=== PATIENT | female | born 1960 | race Caucasian/White ===

== ENCOUNTER 2017-05-27 22:42 | Observation (INO) | payer MEDICARE, OTHER ==
[~2017-05-27] VITALS: Ht 167.6 cm; Wt 73.2 kg
[~2017-05-27 22:42] MED LIST: ASP81CT; ATRV10T; CPR500T; ESCT10T; HCT25T; LVT.088T; LVT.1T; MTR500T; PRM25T PO; SULF1TAB38; TRZ100T
[2017-05-27] MEDS ORDERED: BUTA1TAB9 PO (23:12)
[2017-05-27] MEDS ORDERED: CLON0.5T3 PO (23:12)
[2017-05-27] MEDS ORDERED: OMEP40CA36 PO (23:12)
[2017-05-27] MEDS ORDERED: TOPI50TA13 PO (23:12)
[2017-05-27] MEDS ORDERED: LEVO100T7 PO (23:12)
[2017-05-27] MEDS ORDERED: LORA10TA7 PO (23:12)
[2017-05-27] MEDS ORDERED: CARV25TA PO (23:12)
[2017-05-27] MEDS ORDERED: CLOP75TA28 PO (23:12)
[2017-05-27] MEDS ORDERED: FLUT16SP22 NSEACH (23:12)
[2017-05-27] MEDS ORDERED: VENL150C98 PO (23:12)
[2017-05-27] MEDS ORDERED: MIRT45TA5 PO (23:12)
[2017-05-28] VITALS (20 sets, daily range): BP systolic 83–162; BP diastolic 52–104
[2017-05-28] MEDS ORDERED: ASPIRIN 81 MG CHEW (CHILDREN'S ASA) PO ONE
[2017-05-28] MEDS ORDERED: ANTACID SUSP 30 ML UDC (MYLANTA) PO ONE
[2017-05-28] MEDS ORDERED: FAMOTIDINE 20MG/2ML IV (PEPCID) IV STA
[2017-05-28] MEDS ORDERED: LIDOCAINE 2% VISCOUS 15 ML UDC PO ONE
--- NOTE | 2017-05-28 00:04 | ED Chest Pain ---
General Chief Complaint: Upper Extremity Stated Complaint: L SHOULDER/ARM/JAW PAIN Nursing Triage Note: pt reports left arm pain radiating to left shoulder/neck since 10am 05/27/17 denies injury Nursing Sepsis Screen: No Definite Risk Source: patient Exam Limitations: no limitations History of Present Illness Date Seen by Provider: May 27, 2017 Time Seen by Provider: 23:54 Initial Comments Patient presents to ER by private conveyance with a chief complaint she started feeling some burning in the middle of her chest associated with acid reflux as well as left shoulder pain about 10:00 this morning. She associates this left shoulder pain with her previous small heart attack she had a few years ago. Her last heart catheter was 4 years ago. 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 She is down here helping with some family and under a lot of stress. She debated whether she should be seen but then she started having nausea vomiting which is unusual for her. She had vomitus times one with no blood in it. She does not have anything for nausea at home. She does not take nitroglycerin because it makes her very ill she says. She does take aspirin, Coreg, Plavix, atorvastatin 80 mg. She has a history of femoropopliteal bypass on the right and multiple stents in both legs. She has no stents in her coronaries. She smokes a pack per day and is on levothyroxine. She has hypertension and hypercholesterolemia. Allergies and Home Medications Allergies Coded Allergies: morphine (Unverified Allergy, Mild, VISUAL DISTURB, 10/06/08) tetracaine (Unverified Allergy, Mild, RASH, 10/09/08) tetracycline (Verified Allergy, Mild, HIVES, 10/26/06) nitroglycerin (Verified Allergy, Unknown, NAUSEA, 05/27/17) meperidine (Verified Adverse Reaction, Unknown, NAUSEA AND VOMITING, ) Patient Home Medication List Home Medication List Reviewed: Yes Review of Systems Constitutional: No chills, No diaphoresis EENTM: No Blurred Vision, No Double Vision Respiratory: Denies Cough Cardiovascular: See HPI, Chest Pain, Denies Edema, Denies Irregular Heart Rate , Denies Lightheadedness, Denies Palpitations, Denies Syncope Gastrointestinal: See HPI, Denies Abdominal Pain, Denies Constipated, Denies Diarrhea, Nausea, Vomiting Genitourinary: Denies Burning, Denies Discharge Musculoskeletal: No back pain, No joint pain Skin: No pruritus, No rash Psychiatric/Neurological: Denies Headache, Denies Numbness, Denies Paresthesia Past Ewczivc-[id number]-[id number] Hx Patient Social History Alcohol Use: Denies Use Recreational Drug Use: No Smoking Status: Current Everyday Smoker Type Used: Cigarettes 2nd Hand Smoke Exposure: Yes Recent Foreign Travel: No Contact w/Someone Who Travel: No Recent Infectious Disease Expo: No Recent Hopitalizations: No Seasonal Allergies Seasonal Allergies: Yes Surgeries History of Surgeries: Yes (APPY,HYST,PARTIAL HYSTERECTOMY, fem-pop, leg stents) Surgeries: Appendectomy, Bowel Surgery, Gallbladder, Hysterectomy Respiratory History of Respiratory Disorde: Yes Respiratory Disorders: Asthma Cardiovascular History of Cardiac Disorders: No Neurological History of Neurological Disord: Yes Neurological Disorders: Headaches /Migraines Reproductive System : No Hx 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 Genitourinary History of Genitourinary Disor: No Gastrointestinal History of Gastrointestinal Di: Yes Gastrointestinal Disorders: Gastroesophageal Reflux Musculoskeletal History of Musculoskeletal Dis: Yes Musculoskeletal Disorders: Arthritis Endocrine History of Endocrine Disorders: Yes Endocrine Disorders: Hypothyroidsim HEENT History of HEENT Disorders: No Cancer History of Cancer: No Psychosocial History of Psychiatric Problem: Yes Behavioral Health Disorders: Anxiety, Depression Integumentary History of Skin or Integumenta: No Blood Transfusions History of Blood Disorders: No Physical Exam Vital Signs Vital Signs - First Documented 05/27/17 23:05 Temp 97.8 Pulse 86 Resp 16 B/P (MAP) 135/83 (100) Pulse Ox 98 O2 Delivery Room Air Capillary Refill : Less Than 3 Seconds General Appearance: No Apparent Distress, WD/WN HEENT: PERRL/EOMI, Pharynx Normal Neck: Non Tender, Supple Respiratory: Chest Non Tender, Lungs Clear, Normal Breath Sounds, No Accessory Muscle Use, No Respiratory Distress Cardiovascular: Regular Rate, Rhythm, No Edema, Normal Peripheral Pulses Gastrointestinal: Normal Bowel Sounds, Non Tender, Soft Neurologic/Psychiatric: Alert, Oriented x3 Skin: Normal Color, Warm/Dry Progress/Results/Core Measures Results/Orders Lab Results Laboratory Tests Test 05/28/17 00:25 Range/Units White Blood Count 8.9 4.3-11.0 10^3/uL Red Blood Count 3.97 L 4.35-5.85 10^6/uL Hemoglobin 13.3 11.5-16.0 G/DL Hematocrit 39 35-52 % Mean Corpuscular Volume 98 80-99 FL Mean Corpuscular Hemoglobin 34 25-34 PG Mean Corpuscular Hemoglobin Concent 34 32-36 G/DL Red Cell Distribution Width 13.5 10.0-14.5 % Platelet Count 185 130-400 10^3/uL Mean Platelet Volume 11.5 H 7.4-10.4 FL Neutrophils (%) (Auto) 45 42-75 % Lymphocytes (%) (Auto) 44 12-44 % Monocytes (%) (Auto) 7 0-12 % Eosinophils (%) (Auto) 3 0-10 % Basophils (%) (Auto) 1 0-10 % Neutrophils # (Auto) 4.0 1.8-7.8 X 10^3 Lymphocytes # (Auto) 3.9 1.0-4.0 X 10^3 Monocytes # (Auto) 0.6 0.0-1.0 X 10^3 Eosinophils # (Auto) 0.3 0.0-0.3 10^3/uL Basophils # (Auto) 0.1 0.0-0.1 10^3/uL Prothrombin Time 12.2 12.2-14.7 SEC INR Comment 0.9 0.8-1.4 Activated Partial Thromboplast Time 32 24-35 SEC Sodium Level 141 135-145 MMOL/L Potassium Level 3.5 L 3.6-5.0 MMOL/L Chloride Level 108 H 98-107 MMOL/L Carbon Dioxide Level 23 21-32 MMOL/L Anion Gap 10 5-14 MMOL/L Blood Urea Nitrogen 15 7-18 MG/DL Creatinine 1.33 H 0.60-1.30 MG/DL Estimat Glomerular Filtration Rate 41 BUN/Creatinine Ratio 11 Glucose Level 95 70-105 MG/DL Calcium Level 8.9 8.5-10.1 MG/DL Magnesium Level 2.1 1.8-2.4 MG/DL Total Bilirubin 0.3 0.1-1.0 MG/DL Aspartate Amino Transf (AST/SGOT) 17 5-34 U/L Alanine Aminotransferase (ALT/SGPT) 18 0-55 U/L Alkaline Phosphatase 100 40-136 U/L Myoglobin 44.4 10.0-92.0 NG/ML Troponin I < 0.30 <0.30 NG/ML B-Type Natriuretic Peptide 13.6 <100.0 PG/ML Total Protein 6.9 6.4-8.2 GM/DL Albumin 4.2 3.2-4.5 GM/DL Lipase 58 8-78 U/L My Orders Orders - PAULA JUAN Continuous Ekg Monitoring (05/27/17 23:08) Ekg Tracing (05/27/17 23:08) Chest Pa/Lat (2 View) (05/28/17 00:00) Cbc With Automated Diff (05/28/17 00:00) Magnesium (05/28/17 00:00) Cardiac Profile 1 (05/28/17 00:00) Comprehensive Metabolic Panel (05/28/17 00:00) Myoglobin Serum (05/28/17 00:00) Protime With Inr (05/28/17 00:00) Partial Thromboplastin Time (05/28/17 00:00) O2 (05/28/17 00:00) Monitor-Rhythm Ecg Trace Only (05/28/17 00:00) Lipid Panel (05/29/17 06:00) Aspirin Chewable Tablet (Baby Aspirin Ch (05/28/17 00:00) Saline Lock/Iv-Start (05/28/17 00:00) Lipase (05/28/17 00:00) BNP (05/28/17 00:00) Ondansetron Injection (Zofran Injectio (05/28/17 00:00) Lidocaine 2% Viscous 15 Ml (Xylocaine Vi (05/28/17 00:00) Antacid Suspension (Mylanta Suspension (05/28/17 00:00) Famotidine Injection (Pepcid Injection) (05/28/17 00:00) Morphine Injection (Morphine Injection (05/28/17 01:45) Ondansetron Injection (Zofran Injectio (05/28/17 01:45) Metoprolol Tartrate (Ir) Tab (Lopressor (05/28/17 01:45) Medications Given in ED Current Medications Medications Dose Ordered Sig/Misa Route Start Time Stop Time Status Last Admin Dose Admin Al Hydrox/Mg Hydrox/Simethicone 30 ml ONCE ONCE PO 05/28/17 00:00 05/28/17 00:03 DC 3/10/18 00:24 30 ML Aspirin 324 mg ONCE ONCE PO 05/28/17 00:00 05/28/17 00:03 DC 05/28/17 00:25 324 MG Lidocaine HCl 15 ml ONCE ONCE PO 05/28/17 00:00 05/28/17 00:03 DC 05/28/17 00:24 15 ML Ondansetron HCl 4 mg ONCE ONCE IVP 05/28/17 00:00 05/28/17 00:03 DC 05/28/17 00:24 4 MG Vital Signs/I&O Vital Sign - Last 12Hours 05/27/17 05/28/17 23:05 00:25 Temp 97.8 Pulse 86 Resp 16 B/P (MAP) 135/83 (100) Pulse Ox 98 100 O2 Delivery Room Air Room Air Blood Pressure Mean: 100 Progress Note : Time: 00:34 Progress Note Were not going to give nitroglycerin because the patient is declining it secondary to it making her ill. We will do a chest pain workup because the patient is describing the symptoms being similar to the last time she had a heart attack. Initial EKG is unremarkable. We'll give her a GI cocktail see if that helps the burning sensation in the front of her chest. She is not having any shortness of breath cough, hemoptysis, low oxygen saturation, recent surgical history or immobilization put her at high risk for a pulmonary embolism. Wells PE score is low 0 points.Low risk group: 1.3% chance of PE in an ED population. ECG Initial ECG Impression Date: May 27, 2017 Initial ECG Impression Time: 23:21 Initial ECG Rate: 79 Initial ECG Rhythm: Normal Sinus Initial ECG Intervals: Normal Initial ECG Impression: Normal Initial ECG Comparisson: No Previous ECG Available Comment No significant ST segment depression or elevation. Diagnostic Imaging Diagonstic Imaging: Xray Plain Films/CT/US/NM/MRI: chest Comments No acute cardiopulmonary processes noted. Reviewed: Reviewed by Me Consults Consults : Consulting Physician: CARROL ROTHMAN MD FACP FAC CCDS Consults Notes Discussed the case, EKG, lab, imaging and findings. He recommends admitting the patient to medicine and he will consult the morning. He wants her to have a clear liquid breakfast and nothing by mouth status. Continue the Plavix and a beta walt tonight. Departure Communication (Admissions) Time/Spoke to Admitting Phy: 01:[address] Robby, internal medicine to admit. Time/Spoke to Consulting Phy: 01:10 Communication/Consulting Dr. Reinoso, cardiology Impression Impression: Primary Impression: Chest pain at rest Disposition: ADMITTED INPATIENT Condition: Stable Admissions Decision to Admit Reason: Admit from ER (General) Decision to Admit/Date: May 28, 2017 Time/Decision to Admit Time: 01:32 Departure-Patient Inst. Referrals: NO,LOCAL PHYSICIAN (PCP/Family) Primary Care Physician PAULA JUAN May 28, 2017 00:04
[2017-05-28 00:33] LABS: BASOPHILS # (AUTO) 0.1 10^3/uL (0.0-0.1); BASOPHILS % (AUTO) 1 % (0-10); EOSINOPHILS # (AUTO) 0.3 10^3/uL (0.0-0.3); EOSINOPHILS % (AUTO) 3 % (0-10); HEMATOCRIT 39 % (35-52); HEMOGLOBIN 13.3 G/DL (11.5-16.0); LYMPHOCYTES # (AUTO) 3.9 X 10^3 (1.0-4.0); LYMPHOCYTES % (AUTO) 44 % (12-44); MEAN CORPUSCULAR HEMOGLOBIN 34 PG (25-34); MEAN CORPUSCULAR HGB CONC 34 G/DL (32-36); MEAN CORPUSCULAR VOLUME 98 FL (80-99); MEAN PLATELET VOLUME 11.5 FL (7.4-10.4); MONOCYTES # (AUTO) 0.6 X 10^3 (0.0-1.0); MONOCYTES % (AUTO) 7 % (0-12); NEUTROPHILS % (AUTO) 45 % (42-75); PLATELET COUNT 185 10^3/uL (130-400); RED BLOOD COUNT 3.97 10^6/uL (4.35-5.85); RED CELL DISTRIBUTION WIDTH 13.5 % (10.0-14.5); WHITE BLOOD COUNT 8.9 10^3/uL (4.3-11.0)
[2017-05-28 00:44] LABS: INR 0.9 (0.8-1.4); PROTHROMBIN TIME PATIENT 12.2 SEC (12.2-14.7)
[2017-05-28 00:53] LABS: ALANINE AMINOTRANSFERASE 18 U/L (0-55); ALBUMIN 4.2 GM/DL (3.2-4.5); ALKALINE PHOSPHATASE 100 U/L (40-136); BILIRUBIN,TOTAL 0.3 MG/DL (0.1-1.0); BUN/CREATININE RATIO 11; CALCIUM 8.9 MG/DL (8.5-10.1); CARBON DIOXIDE 23 MMOL/L (21-32); CHLORIDE 108 MMOL/L (98-107); CREATININE SERUM 1.33 MG/DL (0.60-1.30); GFR ESTIMATED 41; GLUCOSE 95 MG/DL (70-105); LIPASE 58 U/L (8-78); MAGNESIUM 2.1 MG/DL (1.8-2.4); POTASSIUM 3.5 MMOL/L (3.6-5.0); SODIUM 141 MMOL/L (135-145); TOTAL PROTEIN 6.9 GM/DL (6.4-8.2)
[2017-05-28 01:00] LABS: MYOGLOBIN SERUM 44.4 NG/ML (10.0-92.0)
[2017-05-28] MEDS ORDERED: ONDANSETRON 4 MG/2 ML (SDV) Z0FRAN IVP ONE ×2 (01:45)
[2017-05-28] MEDS ORDERED: morphine INJ 10 MG/ML 1ML (SYR OR VIAL) IVP ONE (01:45)
[2017-05-28] MEDS ORDERED: meTOprolol TARTRATE 25 MG (LOPRESSOR) TABLET PO ONE (01:45)
[2017-05-28] MEDS ORDERED: ONDANSETRON 4 MG/2 ML (SDV) Z0FRAN IV PRN (03:45)
[2017-05-28] MEDS: ACETAMINOPHEN 500 MG TAB (TYLENOL) PO PRN (04:04)
[2017-05-28 05:58] LABS: BASOPHILS % (AUTO) 0 % (0-10); EOSINOPHILS # (AUTO) 0.2 10^3/uL (0.0-0.3); EOSINOPHILS % (AUTO) 3 % (0-10); HEMATOCRIT 38 % (35-52); HEMOGLOBIN 12.8 G/DL (11.5-16.0); LYMPHOCYTES # (AUTO) 2.9 X 10^3 (1.0-4.0); LYMPHOCYTES % (AUTO) 38 % (12-44); MEAN CORPUSCULAR HEMOGLOBIN 33 PG (25-34); MEAN CORPUSCULAR HGB CONC 34 G/DL (32-36); MEAN CORPUSCULAR VOLUME 98 FL (80-99); MONOCYTES # (AUTO) 0.5 X 10^3 (0.0-1.0); MONOCYTES % (AUTO) 7 % (0-12); NEUTROPHILS # (AUTO) 3.9 X 10^3 (1.8-7.8); NEUTROPHILS % (AUTO) 52 % (42-75); PLATELET COUNT 158 10^3/uL (130-400); RED BLOOD COUNT 3.85 10^6/uL (4.35-5.85); RED CELL DISTRIBUTION WIDTH 13.5 % (10.0-14.5); WHITE BLOOD COUNT 7.5 10^3/uL (4.3-11.0)
[2017-05-28 06:23] LABS: BUN/CREATININE RATIO 11; CALCIUM 8.3 MG/DL (8.5-10.1); CARBON DIOXIDE 23 MMOL/L (21-32); CHLORIDE 110 MMOL/L (98-107); CREATININE SERUM 1.14 MG/DL (0.60-1.30); GFR ESTIMATED 49; GLUCOSE 93 MG/DL (70-105); POTASSIUM 3.9 MMOL/L (3.6-5.0); SODIUM 141 MMOL/L (135-145)
[2017-05-28] MEDS ORDERED: INFLUENZA TRIvalent 2017-2018 0.5 ML/45 MCG SYR IM ONE (07:15)
--- NOTE | 2017-05-28 07:16 | Diagnostic Imaging Report ---
Indication: Chest pain Comparison: 10/18/16 Findings: 2 views of the chest are obtained. Heart size is normal. The pulmonary vessels appear unremarkable. There is no pneumothorax, mediastinal widening or pleural fluid. Diaphragms are flattened suggestive of COPD. Lungs are otherwise clear. The osseous structures appear unremarkable. IMPRESSION: No acute abnormality is demonstrated. No interval change from the prior study. Dictated by: Dictated on workstation # [id number]
[2017-05-28] MEDS: LEVOTHYROXINE 100 MCG (LEVOTHROID) TAB PO SCH (07:22)
[2017-05-28] MEDS: VENlafaxine XR 75 MG (EFFEXOR XR) CAP PO SCH (07:22)
[2017-05-28] MEDS: PANTOPRAZOLE 40 MG (PROTONIX) TAB PO SCH (07:22)
[2017-05-28] MEDS: CARVEDILOL 12.5 MG (COREG) TABLET PO SCH ×2 (07:22→16:10)
[2017-05-28] MEDS ORDERED: ASPIRIN E.C. 325 MG (ECOTRIN) TABLET PO SCH (09:00)
[2017-05-28] MEDS: CLOPIDOGREL 75 MG (PLAVIX) TABLET PO SCH (09:03)
[2017-05-28] MEDS: toPIRamate 25 MG (TOPAMAX) TAB PO SCH (09:03)
[2017-05-28] MEDS: lisINopril 10 MG (PRINIVIL) TABLET PO SCH (09:03)
--- NOTE | 2017-05-28 11:10 | History & Physical-Hospitalist ---
HPI History of Present Illness: HPI/Chief Complaint Pt is a 56yoCM with a PMH of CAD with NM with no stenting, PAD s/p fem pop bypass, HTN, HLD, and tobacco abuse who presented to the ER with ER with CC of left shoulder pain similar to her previous NM. She states her pain started at rest at 930am yesterday. It was a dull pain that radiated to her neck and jaw. She was SOB and nauseated with it as well. It continued throughout the day and was not worsened by exertion. She denies any alleviating or aggravating factors. She later developed diaphoresis and then decided to seek evaluation in the ER. She is from out of town and does not have a local it risk and assurance manager but reports seeing one yearly in her hometown of [place], [place] for her PAD and CAD. She reports she still has some pain but it is mostly back pain from the bed. She is specifically requesting Valium to help her just relax as she has been going through a lost of stress recently. Source: patient Exam Limitations: no limitations Date Seen 05/28/17 Time Seen by Provider: 09:50 Attending Physician Valentin Bustamante MD PCP No,Local Physician Referring Physician CARROL HULL MD FACP FACC CCDS Date of Admission May 28, 2017 at 01:20 Home Medications & Allergies Home Medications Reviewed patient Home Medication Reconciliation Form Allergies Allergies Coded Allergies morphine (Unverified Allergy, Mild, VISUAL DISTURB, 10/06/08) tetracaine (Unverified Allergy, Mild, RASH, 10/09/08) tetracycline (Verified Allergy, Mild, HIVES, 10/26/06) nitroglycerin (Verified Allergy, Unknown, NAUSEA, 05/27/17) meperidine (Verified Adverse Reaction, Unknown, NAUSEA AND VOMITING, 10/26/06) Past Qdtfvtc-Gnddbp-Fwquqn Hx Patient Social History Marrital Status: Employed/Student: unemployed Alcohol Use: Denies Use Recreational Drug Use: No Smoking Status: Current Everyday Smoker Type Used: Cigarettes 2nd Hand Smoke Exposure: Yes Physical Abuse Screen: No Sexual Abuse: No Recent Foreign Travel: No Contact w/other who traveled: No Recent Hopitalizations: No Recent Infectious Disease Expo: No Immunizations Up To Date Date of Pneumonia Vaccine: Dec 29, 2011 Seasonal Allergies Seasonal Allergies: Yes Surgeries Yes (APPY,HYST,PARTIAL HYSTERECTOMY, fem-pop, leg stents) Appendectomy, Bowel Surgery (hemicolectomy for diverticulitis), Gallbladder, Hysterectomy Respiratory No Cardiovascular Yes Coronary Artery Disease, Heart Attack, High Cholesterol, Hypertension, Peripheral Vascular Neurological Yes Headaches /Migraines Reproductive System : No Hx Reproductive Disorders: Yes 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 Genitourinary No Gastrointestinal Yes Gastroesophageal Reflux, Diverticulosis Musculoskeletal Yes Arthritis Endocrine History of Endocrine Disorders: Yes Endocrine Disorders: Hypothyroidsim HEENT History of HEENT Disorders: No Cancer No Psychosocial History of Psychiatric Problem: Yes Behavioral Health Disorders: Anxiety, Depression Integumentary History of Skin or Integumenta: No Blood Transfusions History of Blood Disorders: No Family Medical History Significant Family History: Heart Disease, CAD Over 55 Years Old Review of Systems Constitutional: No chills, diaphoresis, No fever EENTM: No hoarseness, No nose congestion, No throat pain Respiratory: see HPI, No cough, No dyspnea on exertion, No orthopnea, short of breath Cardiovascular: see HPI, chest pain Gastrointestinal: No abdominal pain, No constipation, No diarrhea, nausea, No vomiting Genitourinary: No dysuria, No frequency, No incontinence Musculoskeletal: No joint pain, No muscle pain Skin: No lesions, No rash Psychiatric/Neurological: Emotional Problems ("under a lot of stress"), Denies Headache, Denies Numbness, Denies Tingling Physical Exam Physical Exam Vital Signs Vital Signs - First Documented 05/27/17 23:05 Temp 97.8 Pulse 86 Resp 16 B/P (MAP) 135/83 (100) Pulse Ox 98 O2 Delivery Room Air Capillary Refill : Less Than 3 Seconds General Appearance: No Apparent Distress, WD/WN HEENT: PERRL/EOMI, Moist Mucous Membranes, No Scleral Icterus (L), No Scleral Icterus (R) Neck: Non Tender, Supple, No JVD, No Thyromegaly Respiratory: Chest Non Tender, Lungs Clear, No Accessory Muscle Use, No Respiratory Distress Cardiovascular: Regular Rate, Rhythm, No Murmur, Normal Peripheral Pulses Gastrointestinal: Normal Bowel Sounds, Non Tender, Soft Extremity: Normal Capillary Refill, No Calf Tenderness, No Pedal Edema Neurologic/Psychiatric: Alert, Oriented x3, Normal Mood/Affect Skin: Normal Color, Warm/Dry Results Results/Procedures Lab Laboratory Tests 05/28/17 00:25 05/28/17 05:14 05/29/17 05:07 Assessment/Plan Admission Diagnosis Chest pain- rule out ACS Admission Status: Observation Diagnosis/Problems Diagnosis/Problems (1) Chest pain at rest Status: Acute Assessment & Plan: Concerning for unstable angina Dr Hull consulted, appreciate recs Discussed with him- he will attempt to get records from her it risk and assurance manager while I maximize treatment of GERD Given ASA in ER- decrease dose to 81mg High risk given medical history Declined Nitro in ER due to previous side effects NPO for further workup Will order echo (2) CAD (coronary artery disease) Status: Chronic Assessment & Plan: Known CAD Resume home meds (ASA, statin) Qualifiers: Qualified Codes: I25.119 - Atherosclerotic heart disease of [place] coronary artery with unspecified angina pectoris (3) Essential (primary) hypertension Assessment & Plan: BP low/normotensive currently Will resume home meds as able when able to take PO (4) Hypothyroidism Assessment & Plan: Cont Synthroid Qualifiers: Qualified Codes: E03.8 - Other specified hypothyroidism; E06.3 - Autoimmune thyroiditis (5) PAD (peripheral artery disease) Status: Chronic Assessment & Plan: h/o fempop bypass and stenting Continue Plavix and ASA (6) Dyslipidemia Assessment & Plan: Will check lipid panel [place] Statin (7) Anxiety and depression Assessment & Plan: Continue Effexor (8) Prophylactic measure Assessment & Plan: Lovenox NPO Saline Lock Clinical Quality Measures DVT/VTE Risk/Contraindication: Risk Factor Score Per Nursin RFS Level Per Nursing on Admit: 2=Moderate VALENTIN BUSTAMANTE MD May 28, 2017 11:10
[2017-05-28] MEDS ORDERED: ORPHENADRINE 60 MG/2 ML (NORFLEX) AMP IM NR (11:30)
[2017-05-28] MEDS ORDERED: CYCLOBENZAPRINE 10 MG (FLEXERIL) TAB PO PRN (11:45)
[2017-05-28 11:46] LABS: CHOLESTEROL 234 MG/DL (< 200); HDL CHOLESTEROL 41 MG/DL (40-60); TRIGLYCERIDES 221 MG/DL (<150); VLDL CHOLESTEROL 44 MG/DL (5-40)
--- NOTE | 2017-05-28 12:00 | Consultation-Cardiology ---
HPI-Cardiology Cardiology Consultation: Date of Consultation 05/28/17 Time Seen by Provider: 11:15 Date of Admission Attending Physician Mariza Bustamante MD Admitting Physician No,Local Physician Consulting Physician CARROL ROTHMAN MD, MA, FACP, FACC, FSCAI, CCDS HPI: Chief Complaint: Chest discomfort HPI: 56 yo with more than 24 hours of epigastric and lower midsternal burning that is continuous, mod, nonradiating and w/o aggravating or relieving factors. Has h/o GERD but feels this discomfort is different. It has not been experienced before. It is not associated with other symptoms. Denies other chest discomfort. Has chronic, slowly progressive exertional shortness of breath. Has chronic bilat intermittent leg swelling that has been diagnosed previously as venous insuff (reports a h/o reflux in the lower extremity venous valves on previous w/u). Denies palp or syncope. Is currently visiting this area from [place] where she resides Review of Systems-Cardiology Review of Systems Constitutional: malaise, tiredness, No weight loss, No weight gain Eyes: No vision change Ears/Nose/Throat: No ear discharge, No nasal drainage, No recent hearing loss Respiratory: As described under HPI Cardiovascular: As described under HPI Gastrointestinal: No constipation, No diarrhea, No nausea, No vomiting Genitourinary: No dysuria, No hematuria Musculoskeletal: back pain (chronic), joint pain (chronic) Skin: No rash, No ulcerations Psychiatric/Neurological: No seizure, No focal weakness, No syncope Hematologic: No bleeding abnormalities [id number] Hx Patient Social History Marrital Status: Employed/Student: unemployed Alcohol Use: Denies Use Recreational Drug Use: No Smoking Status: Current Everyday Smoker Type Used: Cigarettes 2nd Hand Smoke Exposure: Yes Recent Foreign Travel: No Recent Infectious Disease Expo: No Hospitalization with Isolation: Denies Physical Abuse Screen: No Sexual Abuse: No Immunizations Up To Date Date of Pneumonia Vaccine: Dec 29, 2011 Past Medical History PMH As described under Assessment. Family Medical History Family Medical History: Reports a h/o CAD in father in his 60s Allergies and Home Medications Allergies Coded Allergies: morphine (Unverified Allergy, Mild, VISUAL DISTURB, 10/06/08) tetracaine (Unverified Allergy, Mild, RASH, 10/09/08) tetracycline (Verified Allergy, Mild, HIVES, 10/26/06) nitroglycerin (Verified Allergy, Unknown, NAUSEA, 05/27/17) meperidine (Verified Adverse Reaction, Unknown, NAUSEA AND VOMITING, ) Patient Home Medication List Home Medication List Reviewed: Yes Physical Exam-Cardiology Physical Exam Vital Signs/I&O Vital Sign - Last 12Hours 05/28/17 05/28/17 05/28/17 05/28/17 00:25 02:04 02:04 02:18 Temp 97.8 98.0 Pulse 79 7 Resp 16 16 B/P (MAP) 147/87 (100) 143/101 (115) Pulse Ox 100 97 97 O2 Delivery Room Air Room Air Room Air 05/28/17 05/28/17 05/28/17 05/28/17 02:23 02:30 02:45 03:00 Pulse 76 72 72 71 Resp 22 18 16 B/P (MAP) 162/104 (123) 137/100 (112) 121/82 (95) Pulse Ox 97 97 94 O2 Delivery Room Air Room Air Room Air 05/28/17 05/28/17 05/28/17 05/28/17 03:15 03:30 03:45 04:00 Pulse 67 71 66 68 Resp 18 16 15 16 B/P (MAP) 122/91 (101) 112/80 (91) 128/88 (101) 102/67 (79) Pulse Ox 94 93 93 94 O2 Delivery Room Air Room Air Room Air Room Air 05/28/17 05/28/17 05/28/17 05/28/17 04:15 04:30 04:45 05:00 Pulse 66 69 71 65 Resp 18 18 16 16 B/P (MAP) 97/66 (76) 107/73 (84) 99/70 (80) 94/76 (82) Pulse Ox 95 94 94 93 O2 Delivery Room Air Room Air Room Air Room Air 05/28/17 05/28/17 05/28/17 05/28/17 05:04 05:15 06:00 07:00 Pulse 68 67 61 Resp 18 16 B/P (MAP) 103/72 (82) 97/66 (76) 92/59 (70) Pulse Ox 94 95 92 95 O2 Delivery Room Air Room Air Room Air Room Air 05/28/17 05/28/17 05/28/17 05/28/17 07:00 07:00 08:00 08:00 Temp 97.0 Pulse 65 65 64 Resp 18 B/P (MAP) 95/67 (76) Pulse Ox 97 97 O2 Delivery Room Air Room Air 05/28/17 05/28/17 09:00 11:45 Temp 97.8 Pulse 67 54 Resp 18 B/P (MAP) 83/52 (62) 94/62 (73) Pulse Ox 94 96 O2 Delivery Room Air Room Air Capillary Refill : Less Than 3 Seconds Constitutional: AAO x 3, well-developed, well-nourished HEENT: EOMI, hearing is well preserved, No xanthelasmas are seen Neck: No carotid bruit, carotid pulses are 2 + bilaterally, with good upstrokes Respiratory: No accessory muscle use, other (Good bilat air entry; somewhat prolonged exp) Cardiovascular: regular rate-rhythm, S1 and S2, systolic murmur (faint STACY at card base) Gastrointestinal: No tender, soft, No guarding, No rebound, audible bowel sounds Extremities: swelling (mild bilat leg swelling), No clubbing, No cyanosis Neurologic/Psychiatric: grossly intact, power is 5/5 both on sides Skin: No rash on exposed areas, No ulcerations on exposed areas Data Review Labs Laboratory Tests 05/28/17 00:25: White Blood Count 8.9, Red Blood Count 3.97L, Hemoglobin 13.3, Hematocrit 39, Mean Corpuscular Volume 98, Mean Corpuscular Hemoglobin 34, Mean Corpuscular Hemoglobin Concent 34, Red Cell Distribution Width 13.5, Platelet Count 185, Mean Platelet Volume 11.5H, Neutrophils (%) (Auto) 45, Lymphocytes (%) (Auto) 44 , Monocytes (%) (Auto) 7, Eosinophils (%) (Auto) 3, Basophils (%) (Auto) 1, Neutrophils # (Auto) 4.0, Lymphocytes # (Auto) 3.9, Monocytes # (Auto) 0.6, Eosinophils # (Auto) 0.3, Basophils # (Auto) 0.1, Prothrombin Time 12.2, INR Comment 0.9, Activated Partial Thromboplast Time 32, Sodium Level 141, Potassium Level 3.5L, Chloride Level 108H, Carbon Dioxide Level 23, Anion Gap 10 , Blood Urea Nitrogen 15, Creatinine 1.33H, Estimat Glomerular Filtration Rate 41, BUN/Creatinine Ratio 11, Glucose Level 95, Calcium Level 8.9, Magnesium Level 2.1, Total Bilirubin 0.3, Aspartate Amino Transf (AST/SGOT) 17, Alanine Aminotransferase (ALT/SGPT) 18, Alkaline Phosphatase 100, Myoglobin 44.4, Troponin I < 0.30, B-Type Natriuretic Peptide 13.6, Total Protein 6.9, Albumin 4.2, Lipase 58 05/28/17 05:14: White Blood Count 7.5, Red Blood Count 3.85L, Hemoglobin 12.8, Hematocrit 38, Mean Corpuscular Volume 98, Mean Corpuscular Hemoglobin 33, Mean Corpuscular Hemoglobin Concent 34, Red Cell Distribution Width 13.5, Platelet Count 158, Mean Platelet Volume 12.0H, Neutrophils (%) (Auto) 52, Lymphocytes (%) (Auto) 38 , Monocytes (%) (Auto) 7, Eosinophils (%) (Auto) 3, Basophils (%) (Auto) 0, Neutrophils # (Auto) 3.9, Lymphocytes # (Auto) 2.9, Monocytes # (Auto) 0.5, Eosinophils # (Auto) 0.2, Basophils # (Auto) 0.0, Sodium Level 141, Potassium Level 3.9, Chloride Level 110H, Carbon Dioxide Level 23, Anion Gap 8, Blood Urea Nitrogen 13, Creatinine 1.14, Estimat Glomerular Filtration Rate 49, BUN/ Creatinine Ratio 11, Glucose Level 93, Calcium Level 8.3L, Troponin I < 0.30, Triglycerides Level 221H, Cholesterol Level 234H, LDL Cholesterol Direct 159H, VLDL Cholesterol 44H, HDL Cholesterol 41 Laboratory Tests 05/28/17 00:25 05/28/17 05:14 A/P-Cardiology Assessment/Admission Diagnosis Chest discomfort w/o evidence of ACS in a 56 yo woman with multiple risk factors H/o mild CAD on card cath of 2006 at this [facility] (Dr Flores). Pt states she had another one in 2010 in [place]. Was told had small arteries; did not undergo any intervention PAD: h/o R fem-pop and subsequent interventions to the graft and distally in the R leg (report 5 stents in the R leg); h/o stenting in the L leg x 1; percutaneous leg interventions have been undertaken in [place], according to her Hypertension Hyperlipidemia Chronic continuing tobacco use H/o GERD Fam h/o early CAD Discussion and Recomendations * Echo * Obtain report of last cath * Continue tele and keep in hosp for now (given continuing symptoms, albeit w/o evidence of ACS) * Augment therapy for acid reflux * Lower dose of ASA to 81 daily * Monitor labs * Increase ambulation * I advised her to quit smoking immediately and completely * I discussed her case with Dr Bustamante of the Hospitalist [facility] Clinical Quality Measures DVT/VTE Risk/Contraindication: Risk Factor Score Per Nursin RFS Level Per Nursing on Admit: 2=Moderate CARROL ROTHMAN MD FACP FACC CCDS May 28, 2017 12:00
[2017-05-28] MEDS: SUCRALFATE 1 GM (CARAFATE) TAB PO SCH ×2 (16:10→22:53)
[2017-05-28] MEDS ORDERED: ATORVASTATIN 80 MG (LIPITOR) TABLET PO SCH (21:00)
[2017-05-29] VITALS: BP 86/52
[2017-05-29 04:00] VITALS: BP 106/70
[2017-05-29 05:54] LABS: BASOPHILS % (AUTO) 1 % (0-10); EOSINOPHILS # (AUTO) 0.2 10^3/uL (0.0-0.3); EOSINOPHILS % (AUTO) 3 % (0-10); HEMATOCRIT 36 % (35-52); HEMOGLOBIN 12.4 G/DL (11.5-16.0); LYMPHOCYTES % (AUTO) 37 % (12-44); MEAN CORPUSCULAR HEMOGLOBIN 33 PG (25-34); MEAN CORPUSCULAR HGB CONC 34 G/DL (32-36); MEAN CORPUSCULAR VOLUME 98 FL (80-99); MEAN PLATELET VOLUME 12.3 FL (7.4-10.4); MONOCYTES # (AUTO) 0.3 X 10^3 (0.0-1.0); MONOCYTES % (AUTO) 6 % (0-12); NEUTROPHILS # (AUTO) 2.9 X 10^3 (1.8-7.8); NEUTROPHILS % (AUTO) 54 % (42-75); PLATELET COUNT 158 10^3/uL (130-400); RED BLOOD COUNT 3.71 10^6/uL (4.35-5.85); RED CELL DISTRIBUTION WIDTH 13.4 % (10.0-14.5); WHITE BLOOD COUNT 5.4 10^3/uL (4.3-11.0)
[2017-05-29 06:10] LABS: CALCIUM 8.8 MG/DL (8.5-10.1); CREATININE SERUM 1.07 MG/DL (0.60-1.30); MAGNESIUM 2.1 MG/DL (1.8-2.4); POTASSIUM 3.9 MMOL/L (3.6-5.0)
[2017-05-29] MEDS: PANTOPRAZOLE 40 MG (PROTONIX) TAB PO SCH (06:53)
[2017-05-29] MEDS: SUCRALFATE 1 GM (CARAFATE) TAB PO SCH ×2 (06:53→12:16)
[2017-05-29] MEDS: LEVOTHYROXINE 100 MCG (LEVOTHROID) TAB PO SCH (06:53)
[2017-05-29] MEDS: VENlafaxine XR 75 MG (EFFEXOR XR) CAP PO SCH (06:53)
[2017-05-29] MEDS: CARVEDILOL 12.5 MG (COREG) TABLET PO SCH (06:53)
[2017-05-29] MEDS: ACETAMINOPHEN 500 MG TAB (TYLENOL) PO PRN (08:23)
[2017-05-29] MEDS: toPIRamate 25 MG (TOPAMAX) TAB PO SCH (08:23)
[2017-05-29] MEDS: CLOPIDOGREL 75 MG (PLAVIX) TABLET PO SCH (08:23)
[2017-05-29] MEDS: lisINopril 10 MG (PRINIVIL) TABLET PO SCH (08:23)
[2017-05-29 08:30] VITALS: BP 108/58
[2017-05-29] MEDS ORDERED: ASPIRIN E.C. 81 MG (ECOTRIN) TAB PO SCH (09:00)
[2017-05-29 12:30] VITALS: BP 105/58
[2017-05-29] MEDS ORDERED: ASPI-983 PO (13:12)
--- NOTE | 2017-05-29 13:23 | Progress Note-Cardiology ---
Cardiology SOAP Progress Note Subjective: Burning feeling the epigastrium/chest has resolved after addition of sucralfate to regimen yesterday Currently feels well and wishes to go home No cp or palp or syncope or shortness of breath Objective: I&O/Vital Signs Vital Sign - Last 12Hours 05/29/17 05/29/17 05/29/17 05/29/17 04:00 04:00 07:00 08:30 Temp 97.9 97.1 Pulse 77 72 78 Resp 16 18 B/P (MAP) 106/70 (82) 108/58 (75) Pulse Ox 98 96 94 O2 Delivery Room Air Room Air Room Air 05/29/17 05/29/17 05/29/17 08:31 08:33 12:59 O2 Delivery Room Air Room Air Room Air Intake and Output 05/29/17 00:00 Intake Total 500 ml Output Total 600 ml Balance -100 ml Weight (Pounds): 161 Weight (Ounces): 5.0 Weight (Calculated Kilograms): [id number] Constitutional: AAO x 3, well-developed, well-nourished Respiratory: No accessory muscle use, other (Good bilat air entry; somewhat prolonged exp) Cardiovascular: regular rate-rhythm, S1 and S2, systolic murmur (faint STACY at card base) Gastrointestional: No tender, soft, No guarding, No rebound, audible bowel sounds Extremities: swelling (mild bilat leg swelling), No clubbing, No cyanosis Neurologic/Psychiatric: grossly intact, power is 5/5 both on sides Skin: No rash on exposed areas, No ulcerations on exposed areas Results/Procedures: Labs Laboratory Tests 05/29/17 05:07: White Blood Count 5.4, Red Blood Count 3.71L, Hemoglobin 12.4, Hematocrit 36, Mean Corpuscular Volume 98, Mean Corpuscular Hemoglobin 33, Mean Corpuscular Hemoglobin Concent 34, Red Cell Distribution Width 13.4, Platelet Count 158, Mean Platelet Volume 12.3H, Neutrophils (%) (Auto) 54, Lymphocytes (%) (Auto) 37 , Monocytes (%) (Auto) 6, Eosinophils (%) (Auto) 3, Basophils (%) (Auto) 1, Neutrophils # (Auto) 2.9, Lymphocytes # (Auto) 2.0, Monocytes # (Auto) 0.3, Eosinophils # (Auto) 0.2, Basophils # (Auto) 0.0, Sodium Level 140, Potassium Level 3.9, Chloride Level 108H, Carbon Dioxide Level 26, Anion Gap 6, Blood Urea Nitrogen 13, Creatinine 1.07, Estimat Glomerular Filtration Rate 53, BUN/ Creatinine Ratio 12, Glucose Level 92, Calcium Level 8.8, Magnesium Level 2.1, Thyroid Stimulating Hormone (TSH) 21.10H, Free Thyroxine 0.74 Laboratory Tests 05/28/17 00:25 05/28/17 05:14 05/29/17 05:07 A/P: Assessment: Chest discomfort w/o evidence of ACS, probably related to GERD (because resolved with addition of sucralfate to the regimen) Hypothyroidism. TSH elevated on 05/29/17. This is being managed by the [facility] Echo on 05/29/17: LVEF 60-65%, PASP 25 mmHg H/o mild CAD on card cath of 2006 at this hosp (Dr Flores). Pt states she had another one in 2010 in [place]. Was told had small arteries; did not undergo any intervention PAD: h/o R fem-pop and subsequent interventions to the graft and distally in the R leg (report 5 stents in the R leg); h/o stenting in the L leg x 1; percutaneous leg interventions have been undertaken in [place], according to her Hypertension Hyperlipidemia Chronic continuing tobacco use H/o GERD Fam h/o early CAD Plan: * Focus of CV management is on risk factor mod * Continue current regimen * I advised her to quit smoking immediately and completely * Outpatient f/u is advised * I discussed her case with Dr Bustamante of the Hospitalist CARROL Hitchcock MD FACP FAC CCDS May 29, 2017 13:23
[2017-05-29] MEDS ORDERED: LISI10TA2 PO (13:28)
[2017-05-29] MEDS ORDERED: SUCR1TAB PO (13:28)
[2017-05-29] MEDS ORDERED: ATOR80TA76 PO (13:28)
[2017-05-29] MEDS ORDERED: LEVO112T2 PO (13:28)
--- NOTE | 2017-05-29 13:30 | Discharge Instructions ---
Discharge Instructions Discharge Medications New, Converted or Re-Newed RX: Call to Patients Pharmacy Patient Instructions Goal/Follow Up Appt: Please schedule a follow up with Dr Cisneros at her [facility] clinic to follow up on your Hypothyroidism and with Dr Hull in 2 weeks. Return to The Hospital For: Please take your medications as written. Should your symptoms return or worse please return to the ER. Activity & Diet Discharge Diet: Cardiac Diet Activity as Tolerated: Yes VALENTIN BEASLEY MD May 29, 2017 13:30
--- NOTE | 2017-05-29 13:59 | Discharge Summary-Hospitalist ---
Diagnosis/Chief Complaint Date of Admission May 28, 2017 at 1:20 am Date of Discharge Discharge Date: May 29, 2017 Admission Diagnosis Chest pain- rule out ACS Discharge Diagnosis (1) Chest pain at rest Status: Acute Assessment & Plan: Concerning for unstable angina Dr Hull consulted, appreciate recs Troponins negative Pain resolved with treatment of GERD Will optimize GI treatment and have follow up with Dr Hull (2) GERD (gastroesophageal reflux disease) Assessment & Plan: Symptoms resolved with decreasing ASA dose and added Carafate Will continue as outpatient Will continue home PPI (3) CAD (coronary artery disease) Status: Chronic Assessment & Plan: Known CAD Resume home meds when able to take PO (4) Essential (primary) hypertension Assessment & Plan: BP improved- will continue home meds (5) Hypothyroidism Assessment & Plan: Cont Synthroid TSH was 21 with normal T4 Will increase Synthroid at discharge and advised to establish with a PCP to continue to monitor (6) PAD (peripheral artery disease) Status: Chronic Assessment & Plan: h/o fempop bypass and stenting Continue Plavix and ASA (7) Dyslipidemia Assessment & Plan: Still with LDL above goal Continue home Lipitor 80mg (8) Anxiety and depression Assessment & Plan: Continue Effexor (9) Prophylactic measure Assessment & Plan: Lovenox HH diet Saline Lock Discharge Summary Consultations Dr Hull- Cardiology Discharge Physical Examination Allergies: Coded Allergies: morphine (Unverified Allergy, Mild, VISUAL DISTURB, 10/06/08) tetracaine (Unverified Allergy, Mild, RASH, 10/09/08) tetracycline (Verified Allergy, Mild, HIVES, 10/26/06) nitroglycerin (Verified Allergy, Unknown, NAUSEA, 05/27/17) meperidine (Verified Adverse Reaction, Unknown, NAUSEA AND VOMITING, ) Vitals & I&Os Vital Signs Date Time Temp Pulse Resp B/P (MAP) Pulse Ox O2 Delivery O2 Flow Rate FiO2 05/29/17 12:59 Room Air 05/29/17 12:30 98.7 68 20 105/58 (74) 96 Hospital Course Pt si [id number] with an extensive past medical history (HTN, HLD, PAD, CAD, and tobacco abuse) who presented to the ER with CC of chest pain at rest. She was admitted for observation and evaluated by cardiology. Her troponins were trended and negative. Her symptoms resolved completely with intensification of GERD treatment. She felt well at discharge and would like to DC home with plan to follow up as an outpatient with Dr Hull. Labs (last 24 hrs) Laboratory Tests 05/29/17 05:07: White Blood Count 5.4, Red Blood Count 3.71L, Hemoglobin 12.4, Hematocrit 36, Mean Corpuscular Volume 98, Mean Corpuscular Hemoglobin 33, Mean Corpuscular Hemoglobin Concent 34, Red Cell Distribution Width 13.4, Platelet Count 158, Mean Platelet Volume 12.3H, Neutrophils (%) (Auto) 54, Lymphocytes (%) (Auto) 37 , Monocytes (%) (Auto) 6, Eosinophils (%) (Auto) 3, Basophils (%) (Auto) 1, Neutrophils # (Auto) 2.9, Lymphocytes # (Auto) 2.0, Monocytes # (Auto) 0.3, Eosinophils # (Auto) 0.2, Basophils # (Auto) 0.0, Sodium Level 140, Potassium Level 3.9, Chloride Level 108H, Carbon Dioxide Level 26, Anion Gap 6, Blood Urea Nitrogen 13, Creatinine 1.07, Estimat Glomerular Filtration Rate 53, BUN/ Creatinine Ratio 12, Glucose Level 92, Calcium Level 8.8, Magnesium Level 2.1, Thyroid Stimulating Hormone (TSH) 21.10H, Free Thyroxine 0.74 Discussion & Recommendations Discharge Planning: <30 minutes discharge planning Discharge Home Medications: Active Scripts Active Synthroid (Levothyroxine Sodium) 112 Mcg Tablet 112 Mcg PO DAILY Lisinopril 10 Mg Tablet 10 Mg PO DAILY@0900 Sucralfate 1 Gm Tablet 1 Gm PO ACHS Atorvastatin Calcium 80 Mg Tablet 80 Mg PO HS Reported Aspirin EC (Aspirin) 81 Mg Tablet.dr 81 Mg PO DAILY Fluticasone Propionate 16 Gm [place].susp 1 [place] NSEACH DAILY PRN Loratadine 10 Mg Tablet 10 Mg PO DAILY PRN Syjrkh-Gzxsjfre-Wmbz 50-325-40 (Butalb/Acetaminophen/Caffeine) 1 Each Tablet 1 Tab PO Q6H PRN Clonazepam 0.5 Mg Tablet 0.5 Mg PO TID PRN Mirtazapine 45 Mg Tablet 45 Mg PO HS Venlafaxine HCl ER (Venlafaxine HCl) 150 Mg Cap.er.24h 150 Mg PO DAILY Omeprazole 40 Mg Capsule.dr 40 Mg PO DAILY Clopidogrel (Clopidogrel Bisulfate) 75 Mg Tablet 75 Mg PO DAILY Topiramate 50 Mg Tablet 50 Mg PO BID Carvedilol 25 Mg Tablet 25 Mg PO BID Instructions to patient/family Please see electronic discharge instructions given to patient. Clinical Quality Measures DVT/VTE Risk/Contraindication: Risk Factor Score Per Nursin RFS Level Per Nursing on Admit: 2=Moderate Problem Qualifiers (1) GERD (gastroesophageal reflux disease): Esophagitis presence: esophagitis presence not specified Qualified Codes: K21.9 - Gastro-esophageal reflux disease without esophagitis (2) CAD (coronary artery disease): Coronary Disease-Associated Artery/Lesion type: [place] artery [place] vs. 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
== END 2017-05-29 13:28 | disposition home or self-care (01) ==
LOC: EDUNIT# 22:42 → ER 22:45 → UNDOADMOB 05-28 01:20 → ICU 05-28 01:20 → 4TH 05-28 12:34 → ICU 05-28 12:34 → UNDODISOB 05-29 14:05
PROVIDERS: ADMIT Family Medicine; ATTEND Family Medicine
DX: R07.89 Other chest pain (principal); K21.9 Gastro-esophageal reflux disease without esophagitis; I25.10 Atherosclerotic heart disease of native coronary artery without angina pectoris; I10 Essential (primary) hypertension; E03.9 Hypothyroidism, unspecified; I73.9 Peripheral vascular disease, unspecified; E78.5 Hyperlipidemia, unspecified; F41.9 Anxiety disorder, unspecified; F32.9 Major depressive disorder, single episode, unspecified; F17.210 Nicotine dependence, cigarettes, uncomplicated; Z79.02 Long term (current) use of antithrombotics/antiplatelets; Z79.82 Long term (current) use of aspirin; Z79.899 Other long term (current) drug therapy; Z82.49 Family history of ischemic heart disease and other diseases of the circulatory system; Z95.820 Peripheral vascular angioplasty status with implants and grafts
CPT/HCPCS: 36415; 71046; 80048; 80053; 80061; 83690; 83735; 83874; 83880; 84439; 84443; 84484; 85025; 85610; 85730; 93005; 93041; 93306

== ENCOUNTER 2020-07-08 07:37 | Emergency (ER) | payer MEDICARE ==
[~2020-07-08] VITALS: Ht 267.6 cm; Wt 54.5 kg
[~2020-07-08 07:37] MED LIST changes: +ASPI-1238 PO; +ATOR80TA76 PO; +BUTA-235 PO; +CARV25TA PO; +CLON0.5T4 PO; +CLOP75TA28 PO; +FLUT16SP22 NSEACH; +LEVO100T7 PO; +LEVO112T2 PO; +LISI10TA25 PO; +LORA10TA7 PO; +MIRT45TA75 PO; +OMEP40CA27 PO; +SUCR1TAB PO; +TOPI50TA13 PO; +VENL150C98 PO
--- NOTE | 2020-07-08 07:55 | ED Headache ---
General Stated Complaint: MIGRAINE Source: patient Exam Limitations: no limitations History of Present Illness Date Seen by Provider: Jul 08, 2020 Time Seen by Provider: 07:40 Initial Comments Patient is a 60-year-old female who presents to the emergency department today with a chief complaint of "migraine headache". Patient states that her headache started about 3 days ago. States that she recently moved back to [place] from out of state within the last couple of months. She states that she has chronic daily migraines and takes Imitrex 50 mg twice daily as her usual routine. Patient states that she has been attempting to take her medications along with some Benadryl without any relief of symptoms. Patient is quite concerned bec ause she states the severity of the headache makes her unable to sleep. Nothing really makes the headache any worse or better. She is slightly light sensitive. She does have a little nausea. Patient points to the right side of the front of her head as the source of most of her pain. No other unusual qualities to this headache. It seems pretty typical for her she currently rates it at "a 9". She is not taken Imitrex this morning. She denies any recent illnesses such as fevers, chills, cough or congestion. She has had a mild right-sided earache. No abdominal pain, vomiting or diarrhea. All other review of systems reviewed and negative except as stated above. Timing/Duration: other (3 days) Severity/Quality: severe Location: frontal Prior Headaches/Recent Trauma: frequent headaches Modifying Factors: worse with exposure to light Associated Symptoms: other (nausea) Allergies and Home Medications Allergies Coded Allergies: morphine (Unverified Allergy, Mild, VISUAL DISTURB, 10/06/08) tetracaine (Unverified Allergy, Mild, RASH, 10/09/08) tetracycline (Verified Allergy, Mild, HIVES, 10/26/06) nitroglycerin (Verified Allergy, Unknown, NAUSEA, 05/27/17) meperidine (Verified Adverse Reaction, Unknown, NAUSEA AND VOMITING, 10/26/06) Home Medications Aspirin 81 Mg Tablet., 81 MG PO DAILY, (Reported) Atorvastatin Calcium 80 Mg Tablet, 80 MG PO HS Prescribed by: VALENTIN BEASLEY on 05/29/17 1328 Butalb/Acetaminophen/Caffeine 1 Each Tablet, 1 TAB PO Q6H PRN for MIGRAINE, (Reported) Carvedilol 25 Mg Tablet, 25 MG PO BID, (Reported) Clonazepam 0.5 Mg Tablet, 0.5 MG PO TID PRN for ANXIETY, (Reported) Clopidogrel Bisulfate 75 Mg Tablet, 75 MG PO DAILY, (Reported) Fluticasone Propionate 16 Gm Che[place].susp, 1 SPRAY NSEACH DAILY PRN for ALLERGIES, (Reported) Levothyroxine Sodium 112 Mcg Tablet, 112 MCG PO DAILY Prescribed by: VALENTIN BEASLEY on 05/29/17 1328 Lisinopril 10 Mg Tablet, 10 MG PO DAILY@0900 Prescribed by: VALENTIN BEASLEY on 05/29/17 1328 Loratadine 10 Mg Tablet, 10 MG PO DAILY PRN for ALLERGIES, (Reported) Mirtazapine 45 Mg Tablet, 45 MG PO HS, (Reported) Omeprazole 40 Mg Capsule.dr, 40 MG PO DAILY, (Reported) Sucralfate 1 Gm Tablet, 1 GM PO ACHS Prescribed by: VALENTIN BEASLEY on 05/29/17 1328 Topiramate 50 Mg Tablet, 50 MG PO BID, (Reported) Venlafaxine HCl 150 Mg Cap.er.24h, 150 MG PO DAILY, (Reported) Patient Home Medication List Home Medication List Reviewed: Yes Review of Systems Review of Systems Constitutional: see HPI Eyes: No Symptoms Reported Ears, Nose, Mouth, Throat: ear pain (Right-sided earache) Respiratory: no symptoms reported Cardiovascular: no symptoms reported Gastrointestinal: nausea Genitourinary: no symptoms reported Musculoskeletal: no symptoms reported Skin: no symptoms reported All Other Systems Reviewed Negative Unless Noted: Yes Past Ufuzewn-Prduaw-Szuczn Hx Patient Social History Type Used: Cigarettes 2nd Hand Smoke Exposure: Yes Recent Hopitalizations: No Immunizations Up To Date Date of Pneumonia Vaccine: Dec 29, 2011 Seasonal Allergies Seasonal Allergies: Yes Past Medical History Surgeries: Yes (APPY,HYST,PARTIAL HYSTERECTOMY, fem-pop, leg stents) Appendectomy, Bowel Surgery, Gallbladder, Hysterectomy Respiratory: No Asthma Cardiac: Yes Coronary Artery Disease, Heart Attack, High Cholesterol, Hypertension, Peripheral Vascular Neurological: Yes Headaches /Migraines 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 5.0oz. 73.059391va; 26.2 BMI Method:Stated General Appearance: WD/WN HEENT: normal ENT inspection, TMs normal, pharynx normal Neck: full range of motion Cardiovascular: regular rate, rhythm Respiratory: normal breath sounds, no respiratory distress, no accessory muscle use Gastrointestinal: non tender, soft Extremities: non-tender, normal inspection, no pedal edema Psychiatric: alert, oriented x 3, depressed affect Crainal Nerves: normal hearing, normal speech, PERRL Coordination/Gait: normal finger to nose, normal gait, negative Romberg's sign Motor/Sensory: no motor deficit, no sensory deficit Skin: normal color, warm/dry Progress/Results/Core Measures Results/Orders My Orders Orders - MANISH CAMPBELL MD Ed Iv/Invasive Line Start (07/08/20 07:55) Ketorolac Injection (Toradol Injection) (07/08/20 08:00) Diphenhydramine Injection (Benadryl Inje (07/08/20 08:00) Medications Given in ED Current Medications Medications Dose Ordered Sig/Misa Route Start Time Stop Time Status Last Admin Dose Admin Diphenhydramine HCl 50 mg ONCE ONCE IV 07/08/20 08:00 07/08/20 08:09 DC 07/08/20 08:09 50 MG Ketorolac Tromethamine 15 mg ONCE ONCE IVP 07/08/20 08:00 07/08/20 08:09 DC 07/08/20 08:12 15 MG Vital Signs/I&O 07/08/20 07:41 Temp 36.8 Pulse 81 Resp 18 B/P (MAP) 123/92 (102) Pulse Ox 98 O2 Delivery Room Air Progress Progress Note : Time: 08:27 Progress Note feeling better, head is no longer pounding. Departure Impression Primary Impression: Migraine Qualified Codes: G43.009 - Migraine without aura, not intractable, without status migrainosus Disposition: 01 HOME, SELF-CARE Condition: Stable Departure-Patient Inst. Decision time for Depature: 07:55 Referrals: NO,LOCAL PHYSICIAN (PCP/Family) Primary Care Physician Patient Instructions: Migraines (DC) Add. Discharge Instructions: Continue you daily medications as previously prescribed. Drink plenty of fluids to stay well hydrated. You can take your imitrex today if needed. Return to the Emergency Department if you have any worsening headache, especially if it changes in quality or severity or is associated with any other emergent, concerning symptoms. MANISH CAMPBELL MD Jul 08, 2020 07:55
[2020-07-08] MEDS ORDERED: KETOROLAC 30 MG/ML VIAL IVP ONE (08:00)
[2020-07-08] MEDS ORDERED: diphenhydrAMINE 50 MG/ML INJ (BENADRYL) IV ONE (08:00)
[2020-07-08 08:33] VITALS: BP 136/88
== END 2020-07-08 08:33 | disposition home or self-care (01) ==
LOC: EDUNIT# 07:37 → ER 07:38
DX: G43.909 Migraine, unspecified, not intractable, without status migrainosus (principal); J45.909 Unspecified asthma, uncomplicated; I25.2 Old myocardial infarction; I10 Essential (primary) hypertension; E78.00 Pure hypercholesterolemia, unspecified; K21.9 Gastro-esophageal reflux disease without esophagitis; E03.9 Hypothyroidism, unspecified; F41.9 Anxiety disorder, unspecified; F32.9 Major depressive disorder, single episode, unspecified; Z88.5 Allergy status to narcotic agent; Z88.1 Allergy status to other antibiotic agents; Z88.8 Allergy status to other drugs, medicaments and biological substances; Z77.22 Contact with and (suspected) exposure to environmental tobacco smoke (acute) (chronic); Z79.82 Long term (current) use of aspirin; Z79.890 Hormone replacement therapy

== ENCOUNTER 2020-07-10 11:04 | Emergency (ER) | payer MEDICARE ==
[~2020-07-10] VITALS: Ht 167 cm; Wt 54.4 kg
[2020-07-10] MEDS ORDERED: FAMOTIDINE 20MG/2ML IV (PEPCID) IVP ONE (11:45)
[2020-07-10] MEDS ORDERED: ONDANSETRON 4 MG/2 ML (SDV) Z0FRAN IVP ONE (11:45)
[2020-07-10] MEDS ORDERED: ASPIRIN 81 MG CHEW (CHILDREN'S ASA) PO ONE (11:45)
[2020-07-10] MEDS ORDERED: LORazepam INJ 2 MG/ML (ATIVAN) VIAL IVP ONE (11:45)
[2020-07-10 11:47] LABS: BASOPHILS # (AUTO) 0.1 10^3/uL (0.0-0.1); BASOPHILS % (AUTO) 1 % (0-10); EOSINOPHILS # (AUTO) 0.1 10^3/uL (0.0-0.3); EOSINOPHILS % (AUTO) 1 % (0-10); HEMATOCRIT 44 % (35-52); HEMOGLOBIN 14.2 g/dL (11.5-16.0); LYMPHOCYTES # (AUTO) 2.6 10^3/uL (1.0-4.0); LYMPHOCYTES % (AUTO) 27 % (12-44); MEAN CORPUSCULAR HEMOGLOBIN 31 pg (25-34); MEAN CORPUSCULAR HGB CONC 33 g/dL (32-36); MEAN CORPUSCULAR VOLUME 95 fL (80-99); MONOCYTES # (AUTO) 0.5 10^3/uL (0.0-1.0); MONOCYTES % (AUTO) 6 % (0-12); NEUTROPHILS # (AUTO) 6.4 10^3/uL (1.8-7.8); NEUTROPHILS % (AUTO) 66 % (42-75); PLATELET COUNT 269 10^3/uL (130-400); WHITE BLOOD COUNT 9.7 10^3/uL (4.3-11.0)
[2020-07-10 11:59] LABS: INR 0.9 (0.8-1.4); PROTHROMBIN TIME PATIENT 12.3 SEC (12.2-14.7)
[2020-07-10 12:03] LABS: ALBUMIN 4.6 GM/DL (3.2-4.5)
[2020-07-10 12:04] LABS: CHLORIDE 105 MMOL/L (98-107); POTASSIUM 4.2 MMOL/L (3.6-5.0); SODIUM 139 MMOL/L (135-145)
[2020-07-10 12:05] LABS: CALCIUM 9.2 MG/DL (8.5-10.1)
[2020-07-10 12:06] LABS: GLUCOSE 125 MG/DL (70-105); TOTAL PROTEIN 7.7 GM/DL (6.4-8.2)
[2020-07-10 12:07] LABS: CARBON DIOXIDE 22 MMOL/L (21-32)
[2020-07-10 12:08] LABS: BILIRUBIN,TOTAL 0.7 MG/DL (0.1-1.0)
[2020-07-10 12:09] LABS: ALKALINE PHOSPHATASE 112 U/L (40-136); GFR ESTIMATED 50
[2020-07-10 12:11] LABS: BUN/CREATININE RATIO 8
[2020-07-10 12:12] LABS: ALANINE AMINOTRANSFERASE 11 U/L (0-55); MAGNESIUM 2.1 MG/DL (1.6-2.4)
--- NOTE | 2020-07-10 12:24 | Diagnostic Imaging Report ---
Indication: Chest pain COMPARISON: 05/28/2017 FINDINGS: The lungs are clear. There is no failure, effusion or pneumothorax. IMPRESSION: No acute appearing abnormality. Dictated by: Dictated on workstation # [id number]
[2020-07-10] MEDS ORDERED: LEVO100C4 PO (13:19)
[2020-07-10] MEDS ORDERED: TRAZ150T72 PO (13:19)
[2020-07-10] MEDS ORDERED: VENL150T PO (13:19)
[2020-07-10] MEDS ORDERED: CARV25TA PO (13:19)
[2020-07-10] MEDS ORDERED: TOPI50TA13 PO (13:19)
--- NOTE | 2020-07-10 13:20 | ED Chest Pain ---
General Chief Complaint: Psych/Social Disorder Stated Complaint: CP-PANIC ATTACK Nursing Triage Note: PT PRESENTS TO ED VIA POV FROM HOME WITH COMPLAINTS OF PANIC ATTACK 3 HOURS AGO WHERE SHE STARTED HAVING CP. PT REPORTS YEYO HAS MOVED RECENTLY AND DOES NOT HAVING ANY OF HER MEDICATIONS AND HAS BEEN OUT OF HER MEDS X 1 WEEK. Nursing Sepsis Screen: No Definite Risk Source: patient Exam Limitations: no limitations History of Present Illness Date Seen by Provider: Jul 10, 2020 Time Seen by Provider: 11:15 Initial Comments This 60-year-old woman presents to the emergency room complaining of "panic attack" and chest pain. She has been having increasing problems with anxiety over the past week or so. She recently moved back to the area after living in [place] for a while. She reports she lost her home in [place] and had to move back here with family. However, her family is not able to support her and her very well. 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 She ran out of several of her medications about a week ago and he believes she is experiencing anxiety and withdraw due to missing her medications. She has accompanying chest pain that does not seem to be exacerbated or alleviated by anything except her emotional state. Allergies and Home Medications Allergies Coded Allergies: morphine (Unverified Allergy, Mild, VISUAL DISTURB, 10/06/08) tetracaine (Unverified Allergy, Mild, RASH, 10/09/08) tetracycline (Verified Allergy, Mild, HIVES, 10/26/06) nitroglycerin (Verified Allergy, Unknown, NAUSEA, 05/27/17) meperidine (Verified Adverse Reaction, Unknown, NAUSEA AND VOMITING, 10/26/06) Home Medications Aspirin 81 Mg Tablet., 81 MG PO DAILY, (Reported) Atorvastatin Calcium 80 Mg Tablet, 80 MG PO HS Prescribed by: VALENTIN BEASLEY on 05/29/17 1328 Butalb/Acetaminophen/Caffeine 1 Each Tablet, 1 TAB PO Q6H PRN for MIGRAINE, (Reported) Carvedilol 25 Mg Tablet, 25 MG PO BID, (Reported) Carvedilol 25 Mg Tablet, 25 MG PO BID Prescribed by: LAURA OSORIO on 07/10/20 1319 Clonazepam 0.5 Mg Tablet, 0.5 MG PO TID PRN for ANXIETY, (Reported) Clopidogrel Bisulfate 75 Mg Tablet, 75 MG PO DAILY, (Reported) Fluticasone Propionate 16 Gm Mcclellan.susp, 1 SPRAY NSEACH DAILY PRN for ALLERGIES, (Reported) Levothyroxine Sodium 112 Mcg Tablet, 112 MCG PO DAILY Prescribed by: VALENTIN BEASLEY on 05/29/17 1328 Levothyroxine Sodium 100 Mcg Capsule, 100 MCG PO DAILY Prescribed by: LAURA OSORIO on 07/10/20 1319 Lisinopril 10 Mg Tablet, 10 MG PO DAILY@0900 Prescribed by: VALENTIN BEASLEY on 05/29/17 1328 Loratadine 10 Mg Tablet, 10 MG PO DAILY PRN for ALLERGIES, (Reported) Mirtazapine 45 Mg Tablet, 45 MG PO HS, (Reported) Omeprazole 40 Mg Capsule.dr, 40 MG PO DAILY, (Reported) Sucralfate 1 Gm Tablet, 1 GM PO ACHS Prescribed by: VALENTIN BEASLEY on 05/29/17 1328 Topiramate 50 Mg Tablet, 50 MG PO BID, (Reported) Topiramate 50 Mg Tablet, 50 MG PO BID Prescribed by: LAURA OSORIO on 07/10/20 1319 Trazodone HCl 150 Mg Tablet, 150 MG PO HS Prescribed by: LAURA OSORIO on 07/10/20 1319 Venlafaxine HCl 150 Mg Cap.er.24h, 150 MG PO DAILY, (Reported) Venlafaxine HCl 150 Mg Tab.er.24, 150 MG PO DAILY Prescribed by: LAURA OSORIO on 07/10/20 1319 Patient Home Medication List Home Medication List Reviewed: Yes Review of Systems Review of Systems Constitutional: no symptoms reported EENTM: No Symptoms Reported Respiratory: See HPI Cardiovascular: See HPI Gastrointestinal: No Symptoms Reported Genitourinary: No Symptoms Reported Musculoskeletal: no symptoms reported Skin: no symptoms reported Psychiatric/Neurological: See HPI Endocrine: No Symptoms Reported Hematologic/Lymphatic: No Symptoms Reported Past Ibgvunv-Iqitoi-Moomih Hx Past Med/Social Hx: Reviewed Nursing Past Med/Soc Hx Patient Social History Alcohol Use: Denies Use Smoking Status: Former Smoker Type Used: Cigarettes Former Smoker, Quit: Jul 11, 2018 2nd Hand Smoke Exposure: Yes Recent Infectious Disease Expo: No Recent Hopitalizations: No Immunizations Up To Date Date of Pneumonia Vaccine: Dec 29, 2011 Seasonal Allergies Seasonal Allergies: Yes Past Medical History Surgeries: Yes (APPY,HYST,PARTIAL HYSTERECTOMY, fem-pop, leg stents) Appendectomy, Bowel Surgery, Coronary Stent, Gallbladder, Hysterectomy Respiratory: No Asthma Cardiac: Yes Coronary Artery Disease, Heart Attack, High Cholesterol, Hypertension, Peripheral Vascular Neurological: Yes Headaches /Migraines 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 5.0oz. 73.130690zm; 19.00 BMI Method:Stated General Appearance: WD/WN, Anxious, Moderate Distress HEENT: PERRL/EOMI, Normal ENT Inspection Neck: Normal Inspection Respiratory: Lungs Clear, Normal Breath Sounds, No Accessory Muscle Use Cardiovascular: Regular Rate, Rhythm, No Edema, No Murmur Gastrointestinal: Normal Bowel Sounds, Non Tender, Soft Extremity: Normal Inspection, No Pedal Edema Neurologic/Psychiatric: Alert, Oriented x3, No Motor/Sensory Deficits, hog scalder II- XII Norm as Tested, Other (Anxious) Skin: Normal Color, Warm/Dry Progress/Results/Core Measures Results/Orders Lab Results Laboratory Tests Test 07/10/20 11:41 Range/Units White Blood Count 9.7 4.3-11.0 10^3/uL Red Blood Count 4.57 3.80-5.11 10^6/uL Hemoglobin 14.2 11.5-16.0 g/dL Hematocrit 44 35-52 % Mean Corpuscular Volume 95 80-99 fL Mean Corpuscular Hemoglobin 31 25-34 pg Mean Corpuscular Hemoglobin Concent 33 32-36 g/dL Red Cell Distribution Width 12.2 10.0-14.5 % Platelet Count 269 130-400 10^3/uL Mean Platelet Volume 12.0 9.0-12.2 fL Immature Granulocyte % (Auto) 0 % Neutrophils (%) (Auto) 66 42-75 % Lymphocytes (%) (Auto) 27 12-44 % Monocytes (%) (Auto) 6 0-12 % Eosinophils (%) (Auto) 1 0-10 % Basophils (%) (Auto) 1 0-10 % Neutrophils # (Auto) 6.4 1.8-7.8 10^3/uL Lymphocytes # (Auto) 2.6 1.0-4.0 10^3/uL Monocytes # (Auto) 0.5 0.0-1.0 10^3/uL Eosinophils # (Auto) 0.1 0.0-0.3 10^3/uL Basophils # (Auto) 0.1 0.0-0.1 10^3/uL Immature Granulocyte # (Auto) 0.0 0.0-0.1 10^3/uL Prothrombin Time 12.3 12.2-14.7 SEC INR Comment 0.9 0.8-1.4 Activated Partial Thromboplast Time 22 L 24-35 SEC Sodium Level 139 135-145 MMOL/L Potassium Level 4.2 3.6-5.0 MMOL/L Chloride Level 105 98-107 MMOL/L Carbon Dioxide Level 22 21-32 MMOL/L Anion Gap 12 5-14 MMOL/L Blood Urea Nitrogen 9 7-18 MG/DL Creatinine 1.10 0.60-1.30 MG/DL Estimat Glomerular Filtration Rate 50 BUN/Creatinine Ratio 8 Glucose Level 125 H 70-105 MG/DL Calcium Level 9.2 8.5-10.1 MG/DL Corrected Calcium 8.5-10.1 MG/DL Magnesium Level 2.1 1.6-2.4 MG/DL Total Bilirubin 0.7 0.1-1.0 MG/DL Aspartate Amino Transf (AST/SGOT) 14 5-34 U/L Alanine Aminotransferase (ALT/SGPT) 11 0-55 U/L Alkaline Phosphatase 112 40-136 U/L Myoglobin 44.7 10.0-92.0 NG/ML Troponin I < 0.028 <0.028 NG/ML Total Protein 7.7 6.4-8.2 GM/DL Albumin 4.6 H 3.2-4.5 GM/DL Thyroid Stimulating Hormone (TSH) 41.36 H 0.35-4.94 UIU/ML Free Thyroxine 0.70 0.70-1.48 NG/DL My Orders Orders - LAURA THOMPSON MD Cbc With Automated Diff (07/10/20 11:22) Magnesium (07/10/20 11:22) Chest 1 View, Ap/Pa Only (07/10/20 11:22) Ekg Tracing (07/10/20 11:22) Comprehensive Metabolic Panel (07/10/20 11:22) Myoglobin Serum (07/10/20 11:22) Protime With Inr (07/10/20 11:22) Partial Thromboplastin Time (07/10/20 11:22) O2 (07/10/20 11:22) Monitor-Rhythm Ecg Trace Only (07/10/20 11:22) Ed Iv/Invasive Line Start (07/10/20 11:22) Troponin I (07/10/20 11:22) Aspirin Chewable Tablet (Baby Aspirin Ch (07/10/20 11:45) Thyroid Stimulating Hormone (07/10/20 11:32) Free T4 (Free Thyroxine) (07/10/20 11:32) Ondansetron Injection (Zofran Injectio (07/10/20 11:45) Famotidine Injection (Pepcid Injection) (07/10/20 11:45) Lorazepam Injection (Ativan Injection) (07/10/20 11:45) Medications Given in ED Current Medications Medications Dose Ordered Sig/Misa Route Start Time Stop Time Status Last Admin Dose Admin Aspirin 324 mg ONCE ONCE PO 07/10/20 11:45 07/10/20 11:46 DC 07/10/20 11:46 324 MG Famotidine 20 mg ONCE ONCE IVP 07/10/20 11:45 07/10/20 11:46 DC 07/10/20 11:47 20 MG Lorazepam 0.5 mg ONCE ONCE IVP 07/10/20 11:45 07/10/20 11:46 DC 07/10/20 11:46 0.5 MG Ondansetron HCl 8 mg ONCE ONCE IVP 07/10/20 11:45 07/10/20 11:46 DC 07/10/20 11:47 8 MG Vital Signs/I&O 07/10/20 07/10/20 11:19 13:26 Temp 35.9 35.9 Pulse 80 84 Resp 18 18 B/P (MAP) 138/95 (109) 111/86 (109) Pulse Ox 99 99 Blood Pressure Mean: 109 Progress Progress Note : Progress Note Patient received an Ativan injection which improved her anxiety greatly. Since she has not established with a primary care doctor in [facility], I did provide her with a month supply of her medications. She did ask for benzodiazepines but I declined because of her need to establish with a primary care provider. Work-up was unremarkable except for her abnormal thyroid studies. See discharge instructions. Initial ECG Impression Date: Jul 10, 2020 Initial ECG Impression Time: 11:17 Initial ECG Rate: 78 Initial ECG Rhythm: Normal Sinus Comment Normal sinus rhythm with no ST elevation or depression. No abnormal intervals or axis deviation. Diagnostic Imaging Diagonstic Imaging: Xray Plain Films/CT/US/NM/MRI: chest Comments NAME: KAILYN GRULLON [facility] REC#: [id number] PT STATUS: DEP ER : 1960 PHYSICIAN: LAURA HTOMPSON MD ADMIT DATE: 07/10/20/ER Signed Date of Exam:07/10/20 CHEST 1 VIEW, AP/PA ONLY Indication: Chest pain COMPARISON: 05/28/2017 FINDINGS: The lungs are clear. There is no failure, effusion or pneumothorax. IMPRESSION: No acute appearing abnormality. Dictated by: Dictated on workstation # [id number] Dict: 07/10/20 1219 Trans: 07/10/20 1443 [facility] [id number] Interpreted by: AGUS AKINS Electronically signed by: AGUS AKINS 07/10/20 1443 Departure Impression Primary Impression: Anxiety and depression Additional Impressions: Hypothyroidism Qualified Codes: E03.9 - Hypothyroidism, unspecified Atypical chest pain Acute stress reaction Disposition: 01 HOME, SELF-CARE Condition: Improved Departure-Patient Inst. Decision time for Depature: 13:10 Referrals: [facility] NO,LOCAL PHYSICIAN (PCP) Primary Care Physician Patient Instructions: Chest Pain (DC), Anxiety, Adult (DC) Add. Discharge Instructions: Follow-up with a primary care provider soon as possible. Please call today for an appointment. The [facility] may be a good choice for you because they have a multidisciplinary clinic that includes medical care, pharmacy, dental, and mental health. Call with questions or concerns. Please be advised you may feel drowsy over the next couple of days as you readjust to starting your medications again. Please avoid driving, using machinery, or making important decisions until you know how these medications will affect you after restarting them. Return to the emergency room if you have worsening symptoms. If you have urgent mental health needs, you may call the [facility] hotline at [phone]. All discharge instructions reviewed with patient and/or family. Voiced understanding. Scripts Venlafaxine HCl (Venlafaxine HCl ER) 150 Mg Tab.er.24 150 MG PO DAILY, #30 TAB Prov: LAURA THOMPSON MD 07/10/20 Topiramate (Topiramate) 50 Mg Tablet 50 MG PO BID, #60 TAB Prov: LAURA THOMPSON MD 07/10/20 Carvedilol (Carvedilol) 25 Mg Tablet 25 MG PO BID, #60 TAB Prov: LAURA THOMPSON MD 07/10/20 Levothyroxine Sodium (Levothyroxine) 100 Mcg Capsule 100 MCG PO DAILY, #30 CAP Prov: LAURA THOMPSON MD 07/10/20 Trazodone HCl (Trazodone HCl) 150 Mg Tablet 150 MG PO HS, #30 TAB Prov: LAURA THOMPSON MD 07/10/20 LAURA THOMPSON MD Jul 10, 2020 13:20
[2020-07-10 13:26] VITALS: BP 111/86
== END 2020-07-10 13:26 | disposition home or self-care (01) ==
LOC: EDUNIT# 11:04 → ER 11:06
DX: F41.9 Anxiety disorder, unspecified (principal); F32.9 Major depressive disorder, single episode, unspecified; E03.9 Hypothyroidism, unspecified; R07.89 Other chest pain; F43.0 Acute stress reaction; E78.00 Pure hypercholesterolemia, unspecified; J45.909 Unspecified asthma, uncomplicated; I10 Essential (primary) hypertension; I25.2 Old myocardial infarction; K21.9 Gastro-esophageal reflux disease without esophagitis; Z87.891 Personal history of nicotine dependence; Z79.890 Hormone replacement therapy; Z88.5 Allergy status to narcotic agent; Z88.1 Allergy status to other antibiotic agents; Z88.8 Allergy status to other drugs, medicaments and biological substances; Z79.82 Long term (current) use of aspirin
CPT/HCPCS: 36415; 71045; 80053; 83735; 83874; 84439; 84443; 84484; 85025; 85610; 85730; 93005; 93041

== ENCOUNTER 2020-11-25 11:12 | Emergency (ER) | payer MEDICARE, MEDICAID ==
[~2020-11-25] VITALS: Ht 167 cm; Wt 54.4 kg
[~2020-11-25 11:12] MED LIST changes: +LEVO100C4 PO; -OMEP40CA27 PO; +OMEP40CA6 PO; +TRAZ150T72 PO; +VENL150T PO
--- OUTSIDE RECORDS SUMMARY | 2020-11-25 11:19 | XMS REPORT | Clinical Summary ---
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
[2020-11-25] MEDS ORDERED: NITROGLYCERIN 2% OINT 1 GM UNIT DOSE PACKET TOP STA (11:23)
[2020-11-25] MEDS ORDERED: ASPIRIN 81 MG CHEW (CHILDREN'S ASA) PO ONE (11:30)
--- NOTE | 2020-11-25 11:34 | ED Chest Pain ---
General Chief Complaint: Chest Pain Stated Complaint: CP Nursing Triage Note: PT PRESENTS TO ED WITH COMPLAINTS OF BILAT SHOULDER PAIN X 2 DAYS. 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 Source: patient Exam Limitations: no limitations History of Present Illness Date Seen by Provider: Nov 25, 2020 Time Seen by Provider: 11:15 Initial Comments 60-year-old female with past medical history of peripheral vascular disease with multiple stents in her legs and previous femoral bypass, hypertension, hyperlipidemia coming in due to severe constant pressure-like chest pain started initially in her right shoulder now going through to her chest and back. This started 2 and half hours prior to arrival, has been constant, and worsening. She has been nothing but sit down since then, and was sitting when this occurred. Ambulation does not change the pain. She had associated nausea earlier. She says she has had some pain in both of her arms which she thought was her shoulders being sore from carrying grandkids over the past couple days, but this pain is new and similar to when she says she had a prior "minor heart attack". Denies having any stents in her heart. Has not taken any aspirin today. Does not take any blood thinners. She is otherwise denying any other acute complaints including any current numbness, tingling, weakness, vision changes, headache, abdominal pain, vomiting, or any other concerns. Allergies and Home Medications Allergies Coded Allergies: morphine (Unverified Allergy, Mild, VISUAL DISTURB, 10/06/08) tetracaine (Unverified Allergy, Mild, RASH, 10/09/08) tetracycline (Verified Allergy, Mild, HIVES, 10/26/06) nitroglycerin (Verified Allergy, Unknown, NAUSEA, 05/27/17) meperidine (Verified Adverse Reaction, Unknown, NAUSEA AND VOMITING, 7) Patient Home Medication List Home Medication List Reviewed: Yes Aspirin (Aspirin EC) 81 Mg Tablet., 81 MG PO DAILY, (Reported) Entered as Reported by: KALLI HELMS on 05/29/17 1312 Atorvastatin Calcium (Atorvastatin Calcium) 80 Mg Tablet, 80 MG PO HS Prescribed by: VALENTIN BEASLEY on 05/29/17 1328 Butalb/Acetaminophen/Caffeine (Svpmwc-Ddnkanwf-Emli 50-325-40) 1 Each Tablet, 1 TAB PO Q6H PRN for MIGRAINE, (Reported) Entered as Reported by: MAGALIE LYONS on 05/27/172311 Carvedilol (Carvedilol) 25 Mg Tablet, 25 MG PO BID, (Reported) Entered as Reported by: MAGALIE LYONS on 05/27/172311 Carvedilol (Carvedilol) 25 Mg Tablet, 25 MG PO BID Prescribed by: LAURA OSORIO on 07/10/20 131 Clonazepam (Clonazepam) 0.5 Mg Tablet, 0.5 MG PO TID PRN for ANXIETY, (Reported) Entered as Reported by: MAGALIE LYONS on 05/27/172311 Clopidogrel Bisulfate (Clopidogrel) 75 Mg Tablet, 75 MG PO DAILY, (Reported) Entered as Reported by: MAGALIE LYONS on 05/27/172311 Fluticasone Propionate (Fluticasone Propionate) 16 Gm [place].susp, 1 SPRAY NSEACH DAILY PRN for ALLERGIES, (Reported) Entered as Reported by: MAGALIE LYONS on 05/27/172311 Levothyroxine Sodium (Synthroid) 112 Mcg Tablet, 112 MCG PO DAILY Prescribed by: VALENTIN BEASLEY on 05/29/171327 Levothyroxine Sodium (Levothyroxine) 100 Mcg Capsule, 100 MCG PO DAILY Prescribed by: LAURA OSORIO on 07/10/20 1319 Lisinopril (Lisinopril) 10 Mg Tablet, 10 MG PO DAILY@0900 Prescribed by: VALENTIN BEASLEY on 05/29/171327 Loratadine (Loratadine) 10 Mg Tablet, 10 MG PO DAILY PRN for ALLERGIES, (Reported) Entered as Reported by: MAGALIE LYONS on 05/27/172311 Mirtazapine (Mirtazapine) 45 Mg Tablet, 45 MG PO HS, (Reported) Entered as Reported by: MAGALIE LYONS on 05/27/172311 Omeprazole (Omeprazole) 40 Mg Capsule.dr, 40 MG PO DAILY, (Reported) Entered as Reported by: MAGALIE LYONS on 05/27/172311 Sucralfate (Sucralfate) 1 Gm Tablet, 1 GM PO ACHS Prescribed by: VALENTIN BEASLEY on 05/29/171327 Topiramate (Topiramate) 50 Mg Tablet, 50 MG PO BID, (Reported) Entered as Reported by: MAGALIE LYONS on 05/27/172311 Topiramate (Topiramate) 50 Mg Tablet, 50 MG PO BID Prescribed by: LAURA OSORIO on 07/10/201318 Trazodone HCl (Trazodone HCl) 150 Mg Tablet, 150 MG PO HS Prescribed by: LAURA OSORIO on 07/10/201318 Venlafaxine HCl (Venlafaxine HCl ER) 150 Mg Cap.er.24h, 150 MG PO DAILY, (Reported) Entered as Reported by: MAGALIE LYONS on 05/27/172311 Venlafaxine HCl (Venlafaxine HCl ER) 150 Mg Tab.er.24, 150 MG PO DAILY Prescribed by: LAURA OSORIO on 07/10/201318 Review of Systems Review of Systems Constitutional: No chills, No fever EENTM: No Blurred Vision Respiratory: Denies Cough, Denies Shortness of Air Cardiovascular: Chest Pain Gastrointestinal: Denies Abdominal Pain, Denies Diarrhea, Denies Nausea, Denies Vomiting Genitourinary: Denies Burning, Denies Frequency Musculoskeletal: joint pain (bilateral shoulders) Skin: No rash Psychiatric/Neurological: No Symptoms Reported Endocrine: No Symptoms Reported Hematologic/Lymphatic: No Symptoms Reported All Other Systems Reviewed Negative Unless Noted: Yes Past Pxaqoro-Oktqyu-Inznej Hx Patient Social History Tobacco Use?: No Substance use?: No Alcohol Use?: No Pt feels they are or have been: No Immunizations Up To Date First/Initial COVID19 Vaccinat: july Second COVID19 Vaccination Yoav: august COVID19 Vaccine Loading Inspector: wendi Seasonal Allergies Seasonal Allergies: Yes Past Medical History Surgery/Hospitalization HX: pmh: pvd, cad, high chol, htn sx: bypass in r leg, stents in r leg Surgeries: Yes (APPY,HYST,PARTIAL HYSTERECTOMY, fem-pop, leg stents) Appendectomy, Bowel Surgery, Coronary Stent, Gallbladder, Hysterectomy Respiratory: No Asthma Cardiac: Yes Coronary Artery Disease, Heart Attack, High Cholesterol, Hypertension, Peripheral Vascular Neurological: Yes Headaches /Migraines 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 5.0oz. [id number]; 19.00 BMI Method:Stated General Appearance: No Apparent Distress, WD/WN HEENT: PERRL/EOMI, Normal ENT Inspection Neck: Full Range of Motion, Normal Inspection, Non Tender, Supple Respiratory: Chest Non Tender, Lungs Clear, Normal Breath Sounds, No Accessory Muscle Use, No Respiratory Distress Cardiovascular: Regular Rate, Rhythm, No Edema, No Murmur, Normal Peripheral Pulses Gastrointestinal: Normal Bowel Sounds, Non Tender, Soft; No Distended, No Guarding Extremity: Normal Capillary Refill, Normal Inspection, Normal Range of Motion, Non Tender, No Calf Tenderness, No Pedal Edema, Other (Normal distal pulses) Neurologic/Psychiatric: Alert, Oriented x3, No Motor/Sensory Deficits, Normal 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/Affect, 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 Norm as Tested Skin: Normal Color, Warm/Dry Lymphatic: No Adenopathy Progress/Results/Core Measures Results/Orders Lab Results Laboratory Tests Test 11/25/20 11:25 11/25/20 13:32 Range/Units White Blood Count 5.7 4.3-11.0 10^3/uL Red Blood Count 4.05 3.80-5.11 10^6/uL Hemoglobin 12.6 11.5-16.0 g/dL Hematocrit 39 35-52 % Mean Corpuscular Volume 95 80-99 fL Mean Corpuscular Hemoglobin 31 25-34 pg Mean Corpuscular Hemoglobin Concent 33 32-36 g/dL Red Cell Distribution Width 11.4 10.0-14.5 % Platelet Count 156 130-400 10^3/uL Mean Platelet Volume 12.3 H 9.0-12.2 fL Immature Granulocyte % (Auto) 0 % Neutrophils (%) (Auto) 56 42-75 % Lymphocytes (%) (Auto) 33 12-44 % Monocytes (%) (Auto) 7 0-12 % Eosinophils (%) (Auto) 4 0-10 % Basophils (%) (Auto) 1 0-10 % Neutrophils # (Auto) 3.2 1.8-7.8 10^3/uL Lymphocytes # (Auto) 1.9 1.0-4.0 10^3/uL Monocytes # (Auto) 0.4 0.0-1.0 10^3/uL Eosinophils # (Auto) 0.2 0.0-0.3 10^3/uL Basophils # (Auto) 0.1 0.0-0.1 10^3/uL Immature Granulocyte # (Auto) 0.0 0.0-0.1 10^3/uL Prothrombin Time 12.7 12.2-14.7 SEC INR Comment 0.9 0.8-1.4 Activated Partial Thromboplast Time 29 24-35 SEC Sodium Level 140 135-145 MMOL/L Potassium Level 4.4 3.6-5.0 MMOL/L Chloride Level 106 98-107 MMOL/L Carbon Dioxide Level 26 21-32 MMOL/L Anion Gap 8 5-14 MMOL/L Blood Urea Nitrogen 11 7-18 MG/DL Creatinine 1.00 0.60-1.30 MG/DL Estimat Glomerular Filtration Rate 56 BUN/Creatinine Ratio 11 Glucose Level 117 H 70-105 MG/DL Calcium Level 9.1 8.5-10.1 MG/DL Corrected Calcium 9.1 8.5-10.1 MG/DL Total Bilirubin 0.6 0.1-1.0 MG/DL Aspartate Amino Transf (AST/SGOT) 14 5-34 U/L Alanine Aminotransferase (ALT/SGPT) 11 0-55 U/L Alkaline Phosphatase 81 40-136 U/L Troponin I < 0.028 < 0.028 <0.028 NG/ML B-Type Natriuretic Peptide 65.8 <100.0 PG/ML Total Protein 6.7 6.4-8.2 GM/DL Albumin 4.0 3.2-4.5 GM/DL My Orders Orders - MADELAINE CHILDERS MD Cbc With Automated Diff (11/25/20 11:23) Chest 1 View, Ap/Pa Only (11/25/20 11:23) Ekg Tracing (11/25/20 11:23) Comprehensive Metabolic Panel (11/25/20 11:23) Protime With Inr (11/25/20 11:23) Partial Thromboplastin Time (11/25/20 11:23) O2 (11/25/20 11:23) Monitor-Rhythm Ecg Trace Only (11/25/20 11:23) Ed Iv/Invasive Line Start (11/25/20 11:23) BNP (11/25/20 11:23) Troponin I (11/25/20 11:23) Nitroglycerin Ointment (Nitrobid Ointme (11/25/20 11:23) Aspirin Chewable Tablet (Baby Aspirin Ch (11/25/20 11:30) Troponin I (11/25/20 13:30) Ekg Tracing (11/25/20 11:40) Antacid Suspension (Mylanta Suspension (11/25/20 12:30) Lidocaine 2% Viscous 15 Ml (Xylocaine Vi (11/25/20 12:30) Ketorolac Injection (Toradol Injection) (11/25/20 13:45) Ondansetron Injection (Zofran Injectio (11/25/20 13:45) Diphenhydramine Injection (Benadryl Inje (11/25/20 13:45) Ketorolac Injection (Toradol Injection) (11/25/20 13:39) Ketorolac Injection (Toradol Injection) (11/25/20 13:45) Medications Given in ED Current Medications Medications Dose Ordered Sig/Misa Route Start Time Stop Time Status Last Admin Dose Admin Al Hydrox/Mg Hydrox/Simethicone 30 ml ONCE ONCE PO 11/25/20 12:30 11/25/20 12:31 DC 11/25/20 12:25 30 ML Aspirin 324 mg ONCE ONCE PO 11/25/20 11:30 11/25/20 11:31 DC 11/25/20 11:39 324 MG Diphenhydramine HCl 12.5 mg ONCE ONCE IV 11/25/20 13:45 11/25/20 13:46 DC 11/25/20 13:42 12.5 MG Ketorolac Tromethamine 15 mg ONCE ONCE IV 11/25/20 13:45 11/25/20 13:46 DC 11/25/20 13:43 15 MG Lidocaine HCl 10 ml ONCE ONCE PO 11/25/20 12:30 11/25/20 12:31 DC 11/25/20 12:25 10 ML Ondansetron HCl 4 mg ONCE ONCE IVP 11/25/20 13:45 11/25/20 13:46 DC 11/25/20 13:41 4 MG Vital Signs/I&O 11/25/20 11:24 Temp 36.1 Pulse 77 Resp 22 B/P (MAP) 174/109 (130) Pulse Ox 97 Blood Pressure Mean: 130 Progress Progress Note : Progress Note 60-year-old female with above history coming in due to chest pain. ABCs were intact and vitals were stable on presentation although she is mildly hypertensive. She was given aspirin for chest pain as well as Nitropaste. She says when she takes oral nitro it does make her sick, but she tolerates the paste. EKG obtained and is normal sinus rhythm with a rate of 74, narrow QRS, normal axis, some baseline wander but no significant ST changes, possibly some flattened T waves inferior. I did a repeat EKG 20 minutes later and it is the same. I reviewed her EKG from 2018 and it appears the same as then as well. I reviewed the chart from 2017, and at the time she presented to the ER for the exact same complaint, was admitted. She improved after a GI cocktail during that time. I have been gave her some Maalox and viscous lidocaine and her chest pain completely resolved. She then started to have some headache from the nitro however. I gave her a headache cocktail which improved that as well. Serial troponins were negative and lab work otherwise grossly unremarkable. I believe she is stable for discharge with outpatient follow-up. She was sent home with strict return precautions. Initial ECG Impression Date: Nov 25, 2020 Initial ECG Impression Time: 11:16 Initial ECG Rate: 74 Initial ECG Rhythm: Normal Sinus Comment Narrow QRS, normal axis, no significant ST changes, T wave flattening inferior, I reviewed her series of EKGs from June of this year, and overall this appears similar EKG : EKG Time: 11:45 Rate: 69 Rhythm: Normal Sinus Comment Appears similar to previous EKG Diagnostic Imaging Diagonstic Imaging: Xray Plain Films/CT/US/NM/MRI: chest Comments [facility] [employer] [facility] [place], [place] NAME: KAILYN GRULLON [facility] REC#: [id number] PT STATUS: REG ER : 1960 PHYSICIAN: MADELAINE CHILDERS MD ADMIT DATE: 11/25/20/ER Draft Date of Exam:11/25/20 CHEST 1 VIEW, AP/PA ONLY INDICATION: Chest pain. COMPARISON: 07/10/2020 TECHNIQUE: Single radiograph of the chest dated 11/25/2020 FINDINGS: The cardiac silhouette is within normal limits in size. No significant pulmonary vascular congestion. The lungs are clear of focal pulmonary opacity. No pleural effusion. No pneumothorax. No acute osseous abnormality. IMPRESSION: Similar-appearing examination without acute cardiopulmonary abnormality. Dictated on workstation # [id number] Dict: 11/25/20 1201 Trans: 11/25/20 1210 [id number] Interpreted by: ANITA BEY MD Electronically signed by: Departure Impression Primary Impression: Chest pain Qualified Codes: R07.9 - Chest pain, unspecified Disposition: 01 HOME, SELF-CARE Condition: Stable Departure-Patient Inst. Decision time for Depature: 14:43 Referrals: NO,LOCAL PHYSICIAN (PCP) Primary Care Physician AYLIN LEWIS JR, MD Patient Instructions: Chest Pain, Adult ED Add. Discharge Instructions: You are seen in the emergency department for chest pain. Your labs are reassuring and it does not appear like you are having an active heart attack. 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 If you have any other concerns and please come back to the ER. All discharge instructions reviewed with patient and/or family. Voiced understanding. MADELAINE CHILDERS MD Nov 25, 2020 11:34
[2020-11-25 11:41] LABS: BASOPHILS # (AUTO) 0.1 10^3/uL (0.0-0.1); BASOPHILS % (AUTO) 1 % (0-10); EOSINOPHILS # (AUTO) 0.2 10^3/uL (0.0-0.3); EOSINOPHILS % (AUTO) 4 % (0-10); HEMATOCRIT 39 % (35-52); HEMOGLOBIN 12.6 g/dL (11.5-16.0); LYMPHOCYTES # (AUTO) 1.9 10^3/uL (1.0-4.0); LYMPHOCYTES % (AUTO) 33 % (12-44); MEAN CORPUSCULAR HEMOGLOBIN 31 pg (25-34); MEAN CORPUSCULAR HGB CONC 33 g/dL (32-36); MEAN CORPUSCULAR VOLUME 95 fL (80-99); MEAN PLATELET VOLUME 12.3 fL (9.0-12.2); MONOCYTES # (AUTO) 0.4 10^3/uL (0.0-1.0); MONOCYTES % (AUTO) 7 % (0-12); NEUTROPHILS # (AUTO) 3.2 10^3/uL (1.8-7.8); NEUTROPHILS % (AUTO) 56 % (42-75); PLATELET COUNT 156 10^3/uL (130-400); WHITE BLOOD COUNT 5.7 10^3/uL (4.3-11.0)
[2020-11-25 11:52] LABS: INR 0.9 (0.8-1.4); PROTHROMBIN TIME PATIENT 12.7 SEC (12.2-14.7)
[2020-11-25 11:58] LABS: POTASSIUM 4.4 MMOL/L (3.6-5.0)
[2020-11-25 11:59] LABS: CALCIUM 9.1 MG/DL (8.5-10.1)
[2020-11-25 12:00] LABS: TOTAL PROTEIN 6.7 GM/DL (6.4-8.2)
[2020-11-25 12:02] LABS: BILIRUBIN,TOTAL 0.6 MG/DL (0.1-1.0)
--- NOTE | 2020-11-25 12:11 | Diagnostic Imaging Report ---
INDICATION: Chest pain. COMPARISON: 07/10/2020 TECHNIQUE: Single radiograph of the chest dated 11/25/2020 FINDINGS: The cardiac silhouette is within normal limits in size. No significant pulmonary vascular congestion. The lungs are clear of focal pulmonary opacity. No pleural effusion. No pneumothorax. No acute osseous abnormality. IMPRESSION: Similar-appearing examination without acute cardiopulmonary abnormality. Dictated by: Dictated on workstation # [id number]
[2020-11-25] MEDS ORDERED: LIDOCAINE 2% VISCOUS 15 ML UDC PO ONE (12:30)
[2020-11-25] MEDS ORDERED: ANTACID SUSP 30 ML UDC (MYLANTA) PO ONE (12:30)
[2020-11-25] MEDS ORDERED: KETOROLAC 30 MG/ML VIAL ONE (13:39)
[2020-11-25] MEDS ORDERED: KETOROLAC 30 MG/ML VIAL IV ONE (13:45)
[2020-11-25] MEDS ORDERED: KETOROLAC 15 MG/ML VIAL IVP ONE (13:45)
[2020-11-25] MEDS ORDERED: ONDANSETRON 4 MG/2 ML (SDV) Z0FRAN IVP ONE (13:45)
[2020-11-25] MEDS ORDERED: diphenhydrAMINE 50 MG/ML INJ (BENADRYL) IV ONE (13:45)
[2020-11-25 14:51] VITALS: BP 133/91
== END 2020-11-25 14:51 | disposition home or self-care (01) ==
LOC: EDUNIT# 11:12 → ER 11:15
DX: R07.9 Chest pain, unspecified (principal); J45.909 Unspecified asthma, uncomplicated; I25.2 Old myocardial infarction; I10 Essential (primary) hypertension; E78.00 Pure hypercholesterolemia, unspecified; I25.10 Atherosclerotic heart disease of native coronary artery without angina pectoris; K21.9 Gastro-esophageal reflux disease without esophagitis; F41.9 Anxiety disorder, unspecified; F32.9 Major depressive disorder, single episode, unspecified; E03.9 Hypothyroidism, unspecified; Z79.01 Long term (current) use of anticoagulants; Z79.899 Other long term (current) drug therapy; Z79.890 Hormone replacement therapy; Z79.82 Long term (current) use of aspirin
CPT/HCPCS: 36415; 71045; 80053; 83880; 84484; 85025; 85610; 85730; 93005; 93041

== ENCOUNTER → 2021-01-05 | Outpatient (CLI) | payer MEDICARE, MEDICAID ==
[~2021-01-05] MED LIST changes: +ASCO500T71 PO; +ATOR20TA49 PO; +CATHETER FLUSH 10 ML SYR IV PRN; +CHOL500050 PO; +DULO60CA6 PO; +ERGO1250 PO; +HOLD METFORMIN - RECEIVED CONTRAST 20 ML VIAL IV SCH; +IOHEXOL 350 MG/ML 150 ML (OMNIPAQUE 350) VIAL IV ONE; +LEVO175T5 PO; +NS 100 ML (IVPB) BAG IV ONE
--- NOTE | 2021-01-05 15:22 | Diagnostic Imaging Report ---
INDICATION: Right leg pain, peripheral vascular disease. CTA of the aorta and lower extremity was performed with pre- and post-IV contrast images, with 3-D reconstructions. Dose reduction protocol was used. Visualized portions of the lung bases are clear. There are no pleural fluid collections. There is no free intraperitoneal air. The liver shows no focal lesion. Spleen, pancreas, and adrenals are normal. The kidneys bilaterally are unremarkable. There is no retroperitoneal mass or adenopathy. There is no ascites or abnormal fluid collection. Visualized bowel loops show no sign of obstruction. There is no pelvic mass or lymphadenopathy. CTA images demonstrate the abdominal aorta to be patent and normal in caliber with no evidence of aneurysmal disease. The celiac trunk and SMA are patent and without stenosis. The renal arteries are patent on both sides. There is an accessory renal artery on the left side. The inferior mesenteric artery is patent. There is minor plaquing in the distal aorta without aortic stenosis or occlusion. The common iliac arteries are patent and without stenosis. The internal iliac arteries are patent and without stenosis. There are external iliac artery stents on both sides as well as a right internal iliac artery stent. The stented segments appear patent. There is a stent in the right common femoral artery which appears to be patent. The profunda femoris arteries and SFA are patent on both sides. Popliteal arteries are patent on each side. The trifurcations are patent. All 3 tibial vessels are visualized and appear patent throughout. IMPRESSION: Minor plaquing of distal aorta without evidence of aortic stenosis. There are stents in place in the external iliac arteries on both sides which appear patent. There is a stent in the right internal iliac artery which appears patent. There is a right common femoral artery stent which appears patent. There is no significant SFA or pulmonary artery stenosis or significant tibial artery stenosis. Dictated by: Dictated on workstation # [id number]
== END ==
LOC: RAD 13:45
PROVIDERS: ATTEND Nurse Practitioner Family
DX: I73.9 Peripheral vascular disease, unspecified (principal); Z95.820 Peripheral vascular angioplasty status with implants and grafts
CPT/HCPCS: 75635

== ENCOUNTER 2021-07-06 18:31 | Emergency (ER) | payer MEDICARE, MEDICAID ==
[~2021-07-06] VITALS: Ht 167.7 cm; Wt 59.0 kg
[~2021-07-06 18:31] MED LIST changes: -CATHETER FLUSH 10 ML SYR IV PRN; -DULO60CA6 PO; +DULO60CA7 PO; -HOLD METFORMIN - RECEIVED CONTRAST 20 ML VIAL IV SCH; -IOHEXOL 350 MG/ML 150 ML (OMNIPAQUE 350) VIAL IV ONE; -NS 100 ML (IVPB) BAG IV ONE
[2021-07-06] MEDS ORDERED: diphenhydrAMINE 50 MG/ML INJ (BENADRYL) IVP ONE (18:45)
[2021-07-06] MEDS ORDERED: LIDOCAINE 2% VISCOUS 15 ML UDC PO ONE (18:45)
[2021-07-06] MEDS ORDERED: PROCHLORPERAZINE 10 MG/2ML INJ (COMPAZINE) IV ONE (18:45)
[2021-07-06] MEDS ORDERED: NS IV 1000 ML 1,000 ML IV SCH (18:45)
[2021-07-06] MEDS ORDERED: KETOROLAC 30 MG/ML VIAL IVP ONE (18:45)
[2021-07-06] MEDS ORDERED: ANTACID SUSP 30 ML UDC (MYLANTA) PO ONE (18:45)
--- NOTE | 2021-07-06 18:46 | ED General ---
General Stated Complaint: CP/MIGRAINE Source of Information: Patient Exam Limitations: No Limitations History of Present Illness Date Seen by Provider: Jul 06, 2021 Time Seen by Provider: 18:42 Initial Comments To ER by private vehicle with reports of chest pain and migraine. The chest pain began at about 1130 this morning and was intermittent until about 1600 at which point it became constant. The pain is left lower chest described as a tight gas-like sensation. She has a history of hiatal hernia that used to cause similar symptoms. However she has not had symptoms like this for quite some time. She also states that this chest pain has triggered one of her migraines. She did take 325 mg of aspirin at home about 3 to 4 hours ago. No nausea no shortness of breath no diaphoresis. History of peripheral arterial disease with stenting. Timing/Duration: Constant Severity: Moderate Associated Systoms: Denies Symptoms Allergies and Home Medications Allergies Coded Allergies: morphine (Unverified Allergy, Mild, VISUAL DISTURB, 10/06/08) tetracaine (Unverified Allergy, Mild, RASH, 10/09/08) tetracycline (Verified Allergy, Mild, HIVES, 10/26/06) nitroglycerin (Verified Allergy, Unknown, NAUSEA, 05/27/17) meperidine (Verified Adverse Reaction, Unknown, NAUSEA AND VOMITING, 10/26/06) Patient Home Medication List Home Medication List Reviewed: Yes Ascorbic Acid (Vitamin C) 500 Mg Tab.chew, 500 MG PO DAILY, (Reported) Entered as Reported by: DAVIS JON on 12/08/20 1429 Aspirin (Aspirin EC) 81 Mg Tablet., 81 MG PO DAILY Prescribed by: EBER LOYD on 12/09/20 180 Atorvastatin Calcium (Lipitor) 20 Mg Tablet, 20 MG PO DAILY Prescribed by: EBER LOYD on 12/09/20 180 Cholecalciferol (Vitamin D3) (Vitamin D3) 125 Mcg Capsule, 125 MCG PO DAILY, (Reported) Entered as Reported by: DAVIS JON on 12/08/20 1443 Duloxetine HCl (Cymbalta) 60 Mg Capsule.dr, 60 MG PO DAILY, (Reported) Entered as Reported by: DAVIS JON on 12/08/20 1427 Levothyroxine Sodium (Levothyroxine Sodium) 175 Mcg Tablet, 175 MCG PO DAILY, (Reported) Entered as Reported by: DAVIS JON on 12/08/20 1426 Topiramate (Topiramate) 50 Mg Tablet, 50 MG PO BID, (Reported) Entered as Reported by: DAVIS JON on 12/08/20 1426 Trazodone HCl (Trazodone HCl) 150 Mg Tablet, 150 MG PO HS, (Reported) Entered as Reported by: DAVIS JON on 12/08/20 1428 Review of Systems Review of Systems Constitutional: see HPI EENTM: see HPI Respiratory: no symptoms reported Cardiovascular: see HPI, chest pain Genitourinary: no symptoms reported Musculoskeletal: no symptoms reported Skin: no symptoms reported Psychiatric/Neurological: No Symptoms Reported Hematologic/Lymphatic: No Symptoms Reported Past Ctuxheh-Lmnbvx-Nvygsm Hx Immunizations Up To Date First/Initial COVID19 Vaccinat: 08/01/20 Second COVID19 Vaccination Yoav: 08/30/20 Seasonal Allergies Seasonal Allergies: Yes Past Medical History Surgery/Hospitalization HX: pmh: pvd, cad, high chol, htn sx: bypass in r leg, stents in r leg Surgeries: Yes (APPY,HYST,PARTIAL HYSTERECTOMY, fem-pop, leg stents) Appendectomy, Bowel Surgery, Coronary Stent, Gallbladder, Hysterectomy Respiratory: No Asthma Cardiac: Yes Coronary Artery Disease, Heart Attack, High Cholesterol, Hypertension, Peripheral Vascular Neurological: Yes Headaches /Migraines 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 5.0oz. 73.450005tc; 22.33 BMI Method:Stated General Appearance: No Apparent Distress, WD/WN Eyes: Bilateral Eye Normal Inspection, Bilateral Eye PERRL, Bilateral Eye EOMI HEENT: PERRL/EOMI, TMs Normal Neck: Full Range of Motion, Normal Inspection Respiratory: No Accessory Muscle Use, No Respiratory Distress Cardiovascular: Regular Rate, Rhythm, Normal Peripheral Pulses Gastrointestinal: Non Tender, Soft Extremity: Normal Capillary Refill, Normal Inspection Neurologic/Psychiatric: Alert, Oriented x3 Progress/Results/Core Measures Suspected Sepsis SIRS Temperature: Pulse: Respiratory Rate: Laboratory Tests 07/06/21 18:38: White Blood Count 7.7 Blood Pressure / Mean: Laboratory Tests 07/06/21 18:38: Creatinine 0.93, INR Comment 0.9, Platelet Count 173, Total Bilirubin 0.4 Results/Orders Lab Results Laboratory Tests Test 07/06/21 18:38 07/06/21 21:17 Range/Units White Blood Count 7.7 4.3-11.0 10^3/uL Red Blood Count 3.94 3.80-5.11 10^6/uL Hemoglobin 12.7 11.5-16.0 g/dL Hematocrit 38 35-52 % Mean Corpuscular Volume 96 80-99 fL Mean Corpuscular Hemoglobin 32 25-34 pg Mean Corpuscular Hemoglobin Concent 34 32-36 g/dL Red Cell Distribution Width 12.1 10.0-14.5 % Platelet Count 173 130-400 10^3/uL Mean Platelet Volume 11.2 9.0-12.2 fL Immature Granulocyte % (Auto) 1 % Neutrophils (%) (Auto) 59 42-75 % Lymphocytes (%) (Auto) 34 12-44 % Monocytes (%) (Auto) 6 0-12 % Eosinophils (%) (Auto) 1 0-10 % Basophils (%) (Auto) 1 0-10 % Neutrophils # (Auto) 4.5 1.8-7.8 10^3/uL Lymphocytes # (Auto) 2.6 1.0-4.0 10^3/uL Monocytes # (Auto) 0.4 0.0-1.0 10^3/uL Eosinophils # (Auto) 0.1 0.0-0.3 10^3/uL Basophils # (Auto) 0.1 0.0-0.1 10^3/uL Immature Granulocyte # (Auto) 0.0 0.0-0.1 10^3/uL Prothrombin Time 12.7 12.2-14.7 SEC INR Comment 0.9 0.8-1.4 Activated Partial Thromboplast Time 31 24-35 SEC Sodium Level 142 135-145 MMOL/L Potassium Level 3.5 L 3.6-5.0 MMOL/L Chloride Level 107 98-107 MMOL/L Carbon Dioxide Level 23 21-32 MMOL/L Anion Gap 12 5-14 MMOL/L Blood Urea Nitrogen 11 7-18 MG/DL Creatinine 0.93 0.60-1.30 MG/DL Estimat Glomerular Filtration Rate 69 BUN/Creatinine Ratio 12 Glucose Level 94 70-105 MG/DL Calcium Level 9.0 8.5-10.1 MG/DL Corrected Calcium 8.7 8.5-10.1 MG/DL Magnesium Level 2.0 1.6-2.4 MG/DL Total Bilirubin 0.4 0.1-1.0 MG/DL Aspartate Amino Transf (AST/SGOT) 13 5-34 U/L Alanine Aminotransferase (ALT/SGPT) 9 0-55 U/L Alkaline Phosphatase 108 40-136 U/L Myoglobin 33.9 10.0-92.0 NG/ML Troponin I < 0.028 <0.028 NG/ML B-Type Natriuretic Peptide 33.9 <100.0 PG/ML Total Protein 6.9 6.4-8.2 GM/DL Albumin 4.4 3.2-4.5 GM/DL My Orders Orders - BENNIE COBB APRN Cbc With Automated Diff (07/06/21 18:35) Magnesium (07/06/21 18:35) Chest 1 View, Ap/Pa Only (07/06/21 18:35) Ekg Tracing (07/06/21 18:35) Comprehensive Metabolic Panel (07/06/21 18:35) Myoglobin Serum (07/06/21 18:35) Protime With Inr (07/06/21 18:35) Partial Thromboplastin Time (07/06/21 18:35) O2 (07/06/21 18:35) Monitor-Rhythm Ecg Trace Only (07/06/21 18:35) Lipid Panel (07/07/21 06:00) Ed Iv/Invasive Line Start (07/06/21 18:35) Bnp [place] (07/06/21 18:35) Troponin I Jarret (07/06/21 18:35) Antacid Suspension (Mylanta Suspension (07/06/21 18:45) Lidocaine 2% Viscous 15 Ml (Xylocaine Vi (07/06/21 18:45) Ns Iv 1000 Ml (Sodium Chloride 0.9%) (07/06/21 18:45) Ketorolac Injection (Toradol Injection) (07/06/21 18:45) Prochlorperazine Injection (Compazine In (07/06/21 18:45) Diphenhydramine Injection (Benadryl Inje (07/06/21 18:45) Fentanyl Inj (Sublimaze Injection) (07/06/21 20:00) Troponin I [place] (07/06/21 20:38) Medications Given in ED Current Medications Medications Dose Ordered Sig/Misa Route Start Time Stop Time Status Last Admin Dose Admin Al Hydrox/Mg Hydrox/Simethicone 30 ml ONCE ONCE PO 07/06/21 18:45 07/06/21 18:46 DC 07/06/21 18:48 30 ML Diphenhydramine HCl 25 mg ONCE ONCE IVP 07/06/21 18:45 07/06/21 18:46 DC 07/06/21 18:49 25 MG Fentanyl Citrate 50 mcg ONCE ONCE IVP 07/06/21 20:00 07/06/21 20:01 DC 07/06/21 20:05 50 MCG Ketorolac Tromethamine 15 mg ONCE ONCE IVP 07/06/21 18:45 07/06/21 18:46 DC 07/06/21 18:49 15 MG Lidocaine HCl 15 ml ONCE ONCE PO 07/06/21 18:45 07/06/21 18:46 DC 07/06/21 18:48 15 ML Prochlorperazine Edisylate 5 mg ONCE ONCE IV 07/06/21 18:45 07/06/21 18:46 DC 07/06/21 18:49 5 MG Vital Signs/I&O 07/06/21 18:34 Temp 36.4 Pulse 98 Resp 20 B/P (MAP) 166/92 (116) Pulse Ox 99 O2 Delivery Room Air Capillary Refill : Departure Communication (Admissions) EKG shows sinus rhythm at 92, no ST segment elevation. QT interval is borderline prolonged at 489 ms. Impression Primary Impression: Chest pain Additional Impression: Migraine Disposition: 01 HOME, SELF-CARE Condition: Stable Departure-Patient Inst. Decision time for Depature: 21:41 Referrals: NO,LOCAL PHYSICIAN (PCP/Family) Primary Care Physician Patient Instructions: Chest Pain, Adult ED BENNIE COBB APRN Jul 06, 2021 18:46
[2021-07-06 18:50] LABS: BASOPHILS # (AUTO) 0.1 10^3/uL (0.0-0.1); BASOPHILS % (AUTO) 1 % (0-10); EOSINOPHILS # (AUTO) 0.1 10^3/uL (0.0-0.3); EOSINOPHILS % (AUTO) 1 % (0-10); HEMATOCRIT 38 % (35-52); HEMOGLOBIN 12.7 g/dL (11.5-16.0); LYMPHOCYTES # (AUTO) 2.6 10^3/uL (1.0-4.0); LYMPHOCYTES % (AUTO) 34 % (12-44); MEAN CORPUSCULAR HEMOGLOBIN 32 pg (25-34); MEAN CORPUSCULAR HGB CONC 34 g/dL (32-36); MEAN CORPUSCULAR VOLUME 96 fL (80-99); MEAN PLATELET VOLUME 11.2 fL (9.0-12.2); MONOCYTES # (AUTO) 0.4 10^3/uL (0.0-1.0); MONOCYTES % (AUTO) 6 % (0-12); NEUTROPHILS # (AUTO) 4.5 10^3/uL (1.8-7.8); NEUTROPHILS % (AUTO) 59 % (42-75); PLATELET COUNT 173 10^3/uL (130-400); WHITE BLOOD COUNT 7.7 10^3/uL (4.3-11.0)
[2021-07-06 19:03] LABS: ALBUMIN 4.4 GM/DL (3.2-4.5); INR 0.9 (0.8-1.4); POTASSIUM 3.5 MMOL/L (3.6-5.0); PROTHROMBIN TIME PATIENT 12.7 SEC (12.2-14.7)
[2021-07-06 19:06] LABS: TOTAL PROTEIN 6.9 GM/DL (6.4-8.2)
[2021-07-06 19:08] LABS: BILIRUBIN,TOTAL 0.4 MG/DL (0.1-1.0)
[2021-07-06 19:10] LABS: CREATININE SERUM 0.93 MG/DL (0.60-1.30)
--- NOTE | 2021-07-06 19:55 | Diagnostic Imaging Report ---
EXAMINATION: Chest 1 view HISTORY: Chest pain COMPARISON: 11/25/2020 FINDINGS: The lungs are clear without edema or pneumonia. No pleural effusion or pneumothorax. Heart size is normal. IMPRESSION: 1. Clear lungs. Dictated by: Dictated on workstation # [id number]
[2021-07-06] MEDS ORDERED: fentaNYL INJ 100 MCG/2 ML AMP IVP ONE (20:00)
[2021-07-06 22:18] VITALS: BP 124/82
== END 2021-07-06 22:19 | disposition home or self-care (01) ==
LOC: EDUNIT# 18:31 → ER 18:34
DX: R07.9 Chest pain, unspecified (principal); G43.909 Migraine, unspecified, not intractable, without status migrainosus
CPT/HCPCS: 36415; 71045; 80053; 83735; 83874; 83880; 84484; 85025; 85610; 85730; 93005; 93041

== ENCOUNTER → 2021-09-24 | Outpatient (CLI) | payer MEDICARE, MEDICAID ==
[~2021-09-24] MED LIST changes: +LEVO112C4 PO
[2021-09-24 11:15] LABS: ALBUMIN 4.5 GM/DL (3.2-4.5); CALCIUM 8.9 MG/DL (8.5-10.1); CREATININE SERUM 1.54 MG/DL (0.60-1.30); PHOSPHORUS 3.9 MG/DL (2.3-4.7); POTASSIUM 3.9 MMOL/L (3.6-5.0)
== END ==
LOC: LAB 10:18
PROVIDERS: ATTEND Nurse Practitioner
DX: R94.4 Abnormal results of kidney function studies (principal)
CPT/HCPCS: 36415; 80069

== ENCOUNTER 2021-09-30 11:07 | Emergency (ER) | payer MEDICARE, MEDICAID ==
[~2021-09-30] VITALS: Ht 167.7 cm; Wt 59.8 kg
[~2021-09-30 11:07] MED LIST changes: -LEVO112C4 PO
[2021-09-30 11:55] LABS: BASOPHILS # (AUTO) 0.1 10^3/uL (0.0-0.1); BASOPHILS % (AUTO) 1 % (0-10); EOSINOPHILS # (AUTO) 0.2 10^3/uL (0.0-0.3); EOSINOPHILS % (AUTO) 2 % (0-10); HEMATOCRIT 40 % (35-52); HEMOGLOBIN 13.3 g/dL (11.5-16.0); LYMPHOCYTES % (AUTO) 19 % (12-44); MEAN CORPUSCULAR HEMOGLOBIN 32 pg (25-34); MEAN CORPUSCULAR HGB CONC 33 g/dL (32-36); MEAN CORPUSCULAR VOLUME 98 fL (80-99); MEAN PLATELET VOLUME 11.9 fL (9.0-12.2); MONOCYTES # (AUTO) 0.5 10^3/uL (0.0-1.0); MONOCYTES % (AUTO) 4 % (0-12); NEUTROPHILS # (AUTO) 7.8 10^3/uL (1.8-7.8); NEUTROPHILS % (AUTO) 74 % (42-75); PLATELET COUNT 179 10^3/uL (130-400); WHITE BLOOD COUNT 10.6 10^3/uL (4.3-11.0)
[2021-09-30 11:59] LABS: ALBUMIN 4.7 GM/DL (3.2-4.5); CHLORIDE 104 MMOL/L (98-107); POTASSIUM 3.9 MMOL/L (3.6-5.0); SODIUM 137 MMOL/L (135-145)
[2021-09-30] MEDS ORDERED: ASPIRIN 81 MG CHEW (CHILDREN'S ASA) PO ONE (12:00)
[2021-09-30 12:01] LABS: CALCIUM 9.5 MG/DL (8.5-10.1)
[2021-09-30 12:02] LABS: GLUCOSE 117 MG/DL (70-105); TOTAL PROTEIN 7.8 GM/DL (6.4-8.2)
[2021-09-30 12:03] LABS: CARBON DIOXIDE 22 MMOL/L (21-32)
--- NOTE | 2021-09-30 12:03 | ED Cardiac General ---
History of Present Illness General Chief Complaint: Chest Pain Stated Complaint: BI LAT ARM CRAMPING, NECK PAIN, CP,DIZZINESS Nursing Triage Note: PT AMB TO RM 7 A/O X4 WITH COMPLAINTS OF CHEST PAIN THAT SHOOTS UP HER LEFT ARM AND NECK. PT DESCRIBES PAIN CRUSHING AND CRAMPING THAT HAS LASTED FOR 1 WEEK. PT STATED THAT SHE TOOK AN ASPIRIN AT 0900 THIS MORNING. BED RAIL IS UP AND CALL LIGHT IS IN REACH. Source: patient Exam Limitations: no limitations History of Present Illness Date Seen by Provider: Sep 30, 2021 Time Seen by Provider: 11:53 Initial Comments Here with report of bilateral arm and leg cramping with arm pain radiating to the chest and is associated with dizziness and weakness. She has had several episodes over the last several weeks but is becoming more frequent recently. She has had these before and has had work-up and have not found anything. 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 Denies any recent injury. She was out walking the dog today when this happened and states that she got dizzy and weak and was trying to make it back home and her daughter helped her by pulling her into the house and then laid on her lap when she got inside. She is feeling better now without any symptoms. She follows with Dr. Trujillo at [facility]. She states that she does not want to be admitted to our cardiology here and would want to go to [place]. Timing/Duration: 1/2 hour, intermittent, resolved prior to arrival Severity: moderate Location: other (Arms and legs) Activities at Onset: activity Prior CP/Workup: cardiac cath, echocardiography, stress test Modifying Factors: worse with exercise; improves with rest NTG SL SCOW CAPTAIN: No ASA po SCOW CAPTAIN: Yes (81 mg) Associated Systoms: Chest Pain; No Diaphoresis, No Fever/Chills, No Nausea/Vomiting, No Shortness of Air; Weakness Allergies and Home Medications Allergies Coded Allergies: morphine (Unverified Allergy, Mild, VISUAL DISTURB, 10/06/08) tetracaine (Unverified Allergy, Mild, RASH, 10/09/08) tetracycline (Verified Allergy, Mild, HIVES, 10/26/06) nitroglycerin (Verified Allergy, Unknown, NAUSEA, 05/27/17) meperidine (Verified Adverse Reaction, Unknown, NAUSEA AND VOMITING, 10/26/06) Patient Home Medication List Home Medication List Reviewed: Yes Ascorbic Acid (Vitamin C) 500 Mg Tab.chew, 500 MG PO DAILY, (Reported) Entered as Reported by: DAVIS JON on 12/08/20 142 Aspirin (Aspirin EC) 81 Mg Tablet.dr, 81 MG PO DAILY Prescribed by: EBER LOYD on 12/09/20 180 Atorvastatin Calcium (Lipitor) 20 Mg Tablet, 20 MG PO DAILY Prescribed by: EBER LOYD on 12/09/20 180 Cholecalciferol (Vitamin D3) (Vitamin D3) 125 Mcg Capsule, 125 MCG PO DAILY, (Reported) Entered as Reported by: DAVIS JON on 12/08/20 1443 Duloxetine HCl (Cymbalta) 60 Mg Capsule.dr, 60 MG PO DAILY, (Reported) Entered as Reported by: DAVIS JON on 12/08/20 1427 Levothyroxine Sodium (Levothyroxine Sodium) 175 Mcg Tablet, 175 MCG PO DAILY, (Reported) Entered as Reported by: DAVIS JON on 12/08/20 1426 Topiramate (Topiramate) 50 Mg Tablet, 50 MG PO BID, (Reported) Entered as Reported by: DAVIS JON on 12/08/20 1426 Trazodone HCl (Trazodone HCl) 150 Mg Tablet, 150 MG PO HS, (Reported) Entered as Reported by: DAVIS JON on 12/08/20 1428 Review of Systems Review of Systems Constitutional: see HPI; No chills, No fever EENTM: No Nose Congestion, No Throat Pain Respiratory: Denies Cough, Denies Shortness of Air Cardiovascular: Chest Pain; Denies Edema; Lightheadedness Gastrointestinal: Denies Nausea, Denies Vomiting Genitourinary: No Symptoms Reported Musculoskeletal: muscle pain, muscle weakness Skin: no symptoms reported Psychiatric/Neurological: Denies Anxiety, Denies Headache; Weakness All Other Systems Reviewed Negative Unless Noted: Yes Past Oxpqrft-Ochnqa-Uhvliq Hx Patient Social History Tobacco Use?: No Smoking Status: Former Smoker Substance use?: No Alcohol Use?: No Pt feels they are or have been: No Immunizations Up To Date Influenza Vaccine Up-to-Date: Yes; Up-to-Date First/Initial COVID19 Vaccinat: 08/01/20 Second COVID19 Vaccination Yoav: 08/30/20 Third COVID19 Vaccination Date: 2020 Seasonal Allergies Seasonal Allergies: Yes Past Medical History Surgery/Hospitalization HX: pmh: pvd, cad, high chol, htn sx: bypass in r leg, stents in r leg Surgeries: Yes (APPY,HYST,PARTIAL HYSTERECTOMY, fem-pop, leg stents) Appendectomy, Bowel Surgery, Coronary Stent, Gallbladder, Hysterectomy Respiratory: No Asthma Cardiac: Yes Coronary Artery Disease, Heart Attack, High Cholesterol, Hypertension, Peripheral Vascular Neurological: Yes Headaches /Migraines 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 5.0oz. 73.308255lb; 21.00 BMI Method:Stated General Appearance: No Apparent Distress, WD/WN HEENT: PERRL/EOMI, Pharynx Normal Neck: Non Tender, Supple Respiratory: Lungs Clear, Normal Breath Sounds Cardiovascular: Regular Rate, Rhythm, No Murmur Gastrointestinal: Non Tender, Soft Extremity: Normal Inspection, Normal Range of Motion, Non Tender, No Calf Tenderness Neurologic/Psychiatric: Alert, Oriented x3 Skin: Normal Color, Warm/Dry Progress/Results/Core Measures Results/Orders Lab Results Laboratory Tests Test 09/30/21 11:24 Range/Units White Blood Count 10.6 4.3-11.0 10^3/uL Red Blood Count 4.11 3.80-5.11 10^6/uL Hemoglobin 13.3 11.5-16.0 g/dL Hematocrit 40 35-52 % Mean Corpuscular Volume 98 80-99 fL Mean Corpuscular Hemoglobin 32 25-34 pg Mean Corpuscular Hemoglobin Concent 33 32-36 g/dL Red Cell Distribution Width 13.6 10.0-14.5 % Platelet Count 179 130-400 10^3/uL Mean Platelet Volume 11.9 9.0-12.2 fL Immature Granulocyte % (Auto) 1 % Neutrophils (%) (Auto) 74 42-75 % Lymphocytes (%) (Auto) 19 12-44 % Monocytes (%) (Auto) 4 0-12 % Eosinophils (%) (Auto) 2 0-10 % Basophils (%) (Auto) 1 0-10 % Neutrophils # (Auto) 7.8 1.8-7.8 10^3/uL Lymphocytes # (Auto) 2.0 1.0-4.0 10^3/uL Monocytes # (Auto) 0.5 0.0-1.0 10^3/uL Eosinophils # (Auto) 0.2 0.0-0.3 10^3/uL Basophils # (Auto) 0.1 0.0-0.1 10^3/uL Immature Granulocyte # (Auto) 0.1 0.0-0.1 10^3/uL Prothrombin Time 12.3 12.2-14.7 SEC INR Comment 0.9 0.8-1.4 Activated Partial Thromboplast Time 34 24-35 SEC D-Dimer < 0.27 0.00-0.49 UG/ML Sodium Level 137 135-145 MMOL/L Potassium Level 3.9 3.6-5.0 MMOL/L Chloride Level 104 98-107 MMOL/L Carbon Dioxide Level 22 21-32 MMOL/L Anion Gap 11 5-14 MMOL/L Blood Urea Nitrogen 15 7-18 MG/DL Creatinine 1.63 H 0.60-1.30 MG/DL Estimat Glomerular Filtration Rate 35 BUN/Creatinine Ratio 9 Glucose Level 117 H 70-105 MG/DL Calcium Level 9.5 8.5-10.1 MG/DL Corrected Calcium 8.5-10.1 MG/DL Magnesium Level 2.2 1.6-2.4 MG/DL Total Bilirubin 0.8 0.1-1.0 MG/DL Aspartate Amino Transf (AST/SGOT) 36 H 5-34 U/L Alanine Aminotransferase (ALT/SGPT) 27 0-55 U/L Alkaline Phosphatase 107 40-136 U/L Myoglobin 256.4 H 10.0-92.0 NG/ML Troponin I < 0.028 <0.028 NG/ML Total Protein 7.8 6.4-8.2 GM/DL Albumin 4.7 H 3.2-4.5 GM/DL Free Thyroxine < 0.40 L 0.70-1.48 NG/DL TSH [place] Testing 276.93 H 0.35-4.94 UIU/ML My Orders Orders - EDWIN JAQUEZ MD Ekg Tracing (09/30/21 11:16) Cbc With Automated Diff (09/30/21 11:49) Magnesium (09/30/21 11:49) Chest 1 View, Ap/Pa Only (09/30/21 11:49) Ekg Tracing (09/30/21 11:49) Comprehensive Metabolic Panel (09/30/21 11:49) Myoglobin Serum (09/30/21 11:49) Protime With Inr (09/30/21 11:49) Partial Thromboplastin Time (09/30/21 11:49) O2 (09/30/21 11:49) Monitor-Rhythm Ecg Trace Only (09/30/21 11:49) Lipid Panel (10/01/21 06:00) Ed Iv/Invasive Line Start (09/30/21 11:49) Troponin I Lucas (09/30/21 11:49) Aspirin Chewable Tablet (Baby Aspirin Ch (09/30/21 12:00) Fibrin Degradation Products (09/30/21 11:51) Ns Iv 500 Ml (Sodium Chloride 0.9%) (09/30/21 12:15) Thyroid Analyzer (09/30/21 12:01) Free T4 (Free Thyroxine) (09/30/21 11:24) Levothyroxine Tablet (Synthroid Tablet) (09/30/21 14:45) Medications Given in ED Current Medications Medications Dose Ordered Sig/Misa Route Start Time Stop Time Status Last Admin Dose Admin Aspirin 324 mg ONCE ONCE PO 09/30/21 12:00 09/30/21 12:01 DC 09/30/21 12:03 324 MG Sodium Chloride 500 ml @ 0 mls/hr Q0M ONCE IV 09/30/21 12:15 09/30/21 12:16 DC 09/30/21 12:06 500 MLS/HR Vital Signs/I&O 09/30/21 11:14 Temp 36.9 Pulse 89 Resp 16 B/P (MAP) 131/87 (102) Pulse Ox 97 O2 Delivery Room Air Blood Pressure Mean: 102 Progress Progress Note : Progress Note Seen and evaluated. Chest pain protocol initiated. ASA 324 mg p.o. ordered. Monitor patient. 1436: Patient was noted to have low T4 and high TSH. She had expressed that she was taking her levothyroxine 112 mcg currently. I did discuss all of this with [facility]. It does not look like she has filled the prescription. I rediscussed it with the patient and she now admits that she has not been taking her levothyroxine since July and this would account for her hypothyroidism and likely her symptoms. We will get her restarted on her levothyroxine 112 mcg now and [facility] will call her for close appointment follow-up. This was discussed with the patient who is very appreciative. Levothyroxine 112 mcg p.o. now and we will continue that as an outpatient prescription. I will send a copy of the chart to [facility]. Patient is not hypotensive. She feels much better after fluids and feels safe to go home. It is reasonable to restart her levothyroxine now. Troponin was negative. Discharged home with return precautions. Patient verbalized understanding instructions and agreement with plan. Initial ECG Impression Date: Sep 30, 2021 Initial ECG Impression Time: 11:25 Initial ECG Rate: 91 Initial ECG Rhythm: Normal Sinus Comment Sinus rhythm with normal axis. No evidence of ST elevation NV. Q waves Flat throughout. Similar to previous of 07/06/2021. Interpreted by me. Diagnostic Imaging Diagonstic Imaging: Xray Plain Films/CT/US/NM/MRI: chest Comments [facility] [place], [place] NAME: KAILYN GRULLON [facility] REC#: [id number] PT STATUS: REG ER : 1960 PHYSICIAN: EDWIN JAQUEZ MD ADMIT DATE: 09/30/21/ER Draft Date of Exam:09/30/21 CHEST 1 VIEW, AP/PA ONLY INDICATION: Chest pain. TIME OF EXAM: 12:53 p.m. COMPARISON: Correlation is made with prior chest from 07/06/2021. FINDINGS: Heart size is normal. The right costophrenic angle is blunted suggestive of a small right effusion. The lungs are clear. The vascularity is normal. There is no pneumothorax. IMPRESSION: Findings consistent with a small right pleural effusion. Dictated on workstation # [id number] Dict: 09/30/21 1252 Trans: 09/30/21 1256 [id number] Interpreted by: SHAHAB HOWARD MD Electronically signed by: Reviewed: Reviewed by Me Departure Impression Primary Impression: Hypothyroidism Qualified Codes: E03.9 - Hypothyroidism, unspecified Disposition: HOME, SELF-CARE Condition: Stable Departure-Patient Inst. Decision time for Depature: 14:39 Referrals: NO,LOCAL PHYSICIAN (PCP/Family) Primary Care Physician Patient Instructions: Hypothyroidism (Underactive Thyroid) Add. Discharge Instructions: All discharge instructions reviewed with patient and/or family. Voiced understanding. It is very important that you take your medications as prescribed. Follow-up with [facility] for recheck and further evaluation with your doctor or whichever provider they are able to schedule you with soon. They should call you but you may call as well in the next few days if you have not heard from them to schedule appointment. Return for chest pain, weakness, vomiting, breathing problems, profound fatigue or other concerns as needed. Scripts Levothyroxine Sodium (Levothyroxine) 112 Mcg Capsule 112 MCG PO DAILY for 30 Days, #30 CAP Prov: EDWIN JAQUEZ MD 09/30/21 EDWIN JAQUEZ MD Sep 30, 2021 12:03
[2021-09-30 12:04] LABS: BILIRUBIN,TOTAL 0.8 MG/DL (0.1-1.0)
[2021-09-30 12:05] LABS: ALKALINE PHOSPHATASE 107 U/L (40-136); CREATININE SERUM 1.63 MG/DL (0.60-1.30); GFR ESTIMATED 35
[2021-09-30 12:06] LABS: BUN/CREATININE RATIO 9
[2021-09-30 12:08] LABS: ALANINE AMINOTRANSFERASE 27 U/L (0-55); INR 0.9 (0.8-1.4); MAGNESIUM 2.2 MG/DL (1.6-2.4); PROTHROMBIN TIME PATIENT 12.3 SEC (12.2-14.7)
[2021-09-30] MEDS ORDERED: NS IV 500 ML 500 ML IV ONE (12:15)
--- NOTE | 2021-09-30 12:56 | Diagnostic Imaging Report ---
INDICATION: Chest pain. TIME OF EXAM: 12:53 p.m. COMPARISON: Correlation is made with prior chest from 07/06/2021. FINDINGS: Heart size is normal. The right costophrenic angle is blunted suggestive of a small right effusion. The lungs are clear. The vascularity is normal. There is no pneumothorax. IMPRESSION: Findings consistent with a small right pleural effusion. Dictated by: Dictated on workstation # [id number]
[2021-09-30 13:35] LABS: TSH (THYROID ANALYZER) 276.93 UIU/ML (0.35-4.94)
[2021-09-30 13:53] LABS: FREE T4 (FREE THYROXINE) < 0.40 NG/DL (0.70-1.48)
[2021-09-30] MEDS ORDERED: LEVO112C4 PO (14:42)
[2021-09-30] MEDS ORDERED: LEVOTHYROXINE 112 MCG (LEVOTHROID) TAB PO ONE (14:45)
[2021-09-30 15:05] VITALS: BP 105/90
== END 2021-09-30 15:07 | disposition home or self-care (01) ==
LOC: EDUNIT# 11:07 → ER 11:09
DX: E03.9 Hypothyroidism, unspecified (principal); Z87.891 Personal history of nicotine dependence
CPT/HCPCS: 36415; 71045; 80053; 83735; 83874; 84439; 84443; 84484; 85025; 85379; 85610; 85730; 93005; 93041

== ENCOUNTER 2022-01-19 12:53 | Emergency (ER) | payer MEDICARE, MEDICAID ==
[~2022-01-19] VITALS: Ht 167.7 cm; Wt 59.0 kg
[~2022-01-19 12:53] MED LIST changes: +LEVO112C4 PO
[2022-01-19] MEDS ORDERED: FAMOTIDINE 20 MG (PEPCID) TABLET PO STA (13:11)
[2022-01-19] MEDS ORDERED: ANTACID SUSP 30 ML UDC (MYLANTA) PO ONE (13:15)
[2022-01-19] MEDS ORDERED: LIDOCAINE 2% VISCOUS 15 ML UDC PO ONE (13:15)
[2022-01-19] MEDS ORDERED: ASPIRIN 81 MG CHEW (CHILDREN'S ASA) PO ONE (13:15)
--- NOTE | 2022-01-19 13:16 | ED Cardiac General ---
History of Present Illness General Chief Complaint: Chest Pain Stated Complaint: CHEST PAINS Nursing Triage Note: PT AMB TO ED BY POV WITH C/O CP. PT REPORTS SHE WOKE UP WITH THIS MORNING WITH L SIDED CP THAT RADIATES TO L SHOULDER AND JAW. PAIN CONSTATNT, WORSE WITH AMB AND WHEN SUPINE. REPORTS DIZZINESS AND SOB WITH AMB. Source: patient Exam Limitations: no limitations History of Present Illness Date Seen by Provider: Jan 19, 2022 Time Seen by Provider: 12:54 Initial Comments 61-year-old female with past medical history of CAD as well as peripheral vascular disease coming in due to chest pain. The pressure-like pain, better with sitting up, started more than 6 hours prior to arrival. Its been constant, nothing really seems to change it to make it better. She states she believes it is related to her hiatal hernia and reflux. She says she was diagnosed with H. pylori several months ago and underwent treatment for that. She had a normal stress test several months ago. She is otherwise denying any shortness of breath, fever, leg swelling or redness, leg pain, abdominal pain, nausea, vomiting, diarrhea, weakness, numbness, or any other concerns Allergies and Home Medications Allergies Coded Allergies: morphine (Unverified Allergy, Mild, VISUAL DISTURB, 10/06/08) tetracaine (Unverified Allergy, Mild, RASH, 10/09/08) tetracycline (Verified Allergy, Mild, HIVES, 10/26/06) nitroglycerin (Verified Allergy, Unknown, NAUSEA, 05/27/17) meperidine (Verified Adverse Reaction, Unknown, NAUSEA AND VOMITING, 10/26/06) Patient Home Medication List Home Medication List Reviewed: Yes Ascorbic Acid (Vitamin C) 500 Mg Tab.chew, 500 MG PO DAILY, (Reported) Entered as Reported by: DAVIS JON on 12/08/20 1429 Aspirin (Aspirin EC) 81 Mg Tablet.dr, 81 MG PO DAILY Prescribed by: EBER LOYD on 12/09/20 180 Atorvastatin Calcium (Lipitor) 20 Mg Tablet, 20 MG PO DAILY Prescribed by: EBER LOYD on 12/09/20 180 Cholecalciferol (Vitamin D3) (Vitamin D3) 125 Mcg Capsule, 125 MCG PO DAILY, (Reported) Entered as Reported by: DAVIS JON on 12/08/20 1443 Duloxetine HCl (Cymbalta) 60 Mg Capsule.dr, 60 MG PO DAILY, (Reported) Entered as Reported by: DAVIS JON on 12/08/20 1427 Levothyroxine Sodium (Levothyroxine Sodium) 175 Mcg Tablet, 175 MCG PO DAILY, (Reported) Entered as Reported by: DAVIS JON on 12/08/20 1426 Levothyroxine Sodium (Levothyroxine) 112 Mcg Capsule, 112 MCG PO DAILY Prescribed by: EDWIN JAQUEZ on 09/30/21 1442 Topiramate (Topiramate) 50 Mg Tablet, 50 MG PO BID, (Reported) Entered as Reported by: DAVIS JON on 12/08/20 1426 Trazodone HCl (Trazodone HCl) 150 Mg Tablet, 150 MG PO HS, (Reported) Entered as Reported by: DAVIS JON on 12/08/20 1428 Review of Systems Review of Systems Constitutional: No fever EENTM: No Blurred Vision Respiratory: Denies Cough Cardiovascular: Chest Pain Gastrointestinal: No Symptoms Reported Genitourinary: No Symptoms Reported Musculoskeletal: no symptoms reported Skin: no symptoms reported Psychiatric/Neurological: No Symptoms Reported Endocrine: No Symptoms Reported Hematologic/Lymphatic: No Symptoms Reported All Other Systems Reviewed Negative Unless Noted: Yes Past Hhppeit-Xdtekk-Wuztqf Hx Patient Social History Tobacco Use?: No Use of E-Cig and/or Vaping dev: No Substance use?: No Alcohol Use?: No Pt feels they are or have been: No Immunizations Up To Date Influenza Vaccine Up-to-Date: No; Not Current First/Initial COVID19 Vaccinat: 08/01/20 Second COVID19 Vaccination Yoav: 08/30/20 Third COVID19 Vaccination Date: 2020 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: [employer] Seasonal Allergies Seasonal Allergies: Yes Past Medical History Surgery/Hospitalization HX: pmh: pvd, cad, high chol, htn, hypothyroid sx: bypass in r leg, stents in r leg x5, l leg x1 Surgeries: Yes (APPY,HYST,PARTIAL HYSTERECTOMY, fem-pop, leg stents) Appendectomy, Bowel Surgery, Coronary Stent, Gallbladder, Hysterectomy Respiratory: No Asthma Cardiac: Yes Coronary Artery Disease, Heart Attack, High Cholesterol, Hypertension, Peripheral Vascular Neurological: Yes Headaches /Migraines 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 5.0oz. [id number]; 20.00 BMI Method:Stated General Appearance: No Apparent Distress, WD/WN HEENT: PERRL/EOMI, Normal ENT Inspection, Pharynx Normal Neck: Full Range of Motion, Normal Inspection, Non Tender, Supple Respiratory: Chest Non Tender, Lungs Clear, Normal Breath Sounds, No Accessory Muscle Use, No Respiratory Distress Cardiovascular: Regular Rate, Rhythm, No Edema, Normal Peripheral Pulses Gastrointestinal: Normal Bowel Sounds, Non Tender, Soft; No Guarding Extremity: Normal Capillary Refill, Normal Inspection, Normal Range of Motion, Non Tender, No Calf Tenderness, No Pedal Edema, Other (Normal distal pulses) Neurologic/Psychiatric: Alert, No Motor/Sensory Deficits, Normal Mood/Affect Skin: Normal Color, Warm/Dry Lymphatic: No Adenopathy Progress/Results/Core Measures Results/Orders Lab Results Laboratory Tests Test 01/19/22 13:05 01/19/22 14:05 Range/Units White Blood Count 4.9 4.3-11.0 10^3/uL Red Blood Count 4.00 3.80-5.11 10^6/uL Hemoglobin 12.8 11.5-16.0 g/dL Hematocrit 39 35-52 % Mean Corpuscular Volume 98 80-99 fL Mean Corpuscular Hemoglobin 32 25-34 pg Mean Corpuscular Hemoglobin Concent 33 32-36 g/dL Red Cell Distribution Width 12.3 10.0-14.5 % Platelet Count 158 130-400 10^3/uL Mean Platelet Volume 11.6 9.0-12.2 fL Immature Granulocyte % (Auto) 0 % Neutrophils (%) (Auto) 48 42-75 % Lymphocytes (%) (Auto) 41 12-44 % Monocytes (%) (Auto) 8 0-12 % Eosinophils (%) (Auto) 2 0-10 % Basophils (%) (Auto) 1 0-10 % Neutrophils # (Auto) 2.4 1.8-7.8 X 10^3 Lymphocytes # (Auto) 2.0 1.0-4.0 X 10^3 Monocytes # (Auto) 0.4 0.0-1.0 X 10^3 Eosinophils # (Auto) 0.1 0.0-0.3 10^3/uL Basophils # (Auto) 0.1 0.0-0.1 10^3/uL Immature Granulocyte # (Auto) 0.0 0.0-0.1 10^3/uL Prothrombin Time 12.5 12.2-14.7 SEC INR Comment 0.9 0.8-1.4 Activated Partial Thromboplast Time 32 24-35 SEC Sodium Level 140 135-145 MMOL/L Potassium Level 4.1 3.6-5.0 MMOL/L Chloride Level 109 H 98-107 MMOL/L Carbon Dioxide Level 22 21-32 MMOL/L Anion Gap 9 5-14 MMOL/L Blood Urea Nitrogen 13 7-18 MG/DL Creatinine 1.06 0.60-1.30 MG/DL Estimat Glomerular Filtration Rate 59 BUN/Creatinine Ratio 12 Glucose Level 95 70-105 MG/DL Calcium Level 9.1 8.5-10.1 MG/DL Corrected Calcium 8.9 8.5-10.1 MG/DL Magnesium Level 2.1 1.6-2.4 MG/DL Total Bilirubin 0.3 0.1-1.0 MG/DL Aspartate Amino Transf (AST/SGOT) 14 5-34 U/L Alanine Aminotransferase (ALT/SGPT) 10 0-55 U/L Alkaline Phosphatase 95 40-136 U/L Troponin I < 0.028 < 0.028 <0.028 NG/ML B-Type Natriuretic Peptide < 10.0 <100.0 PG/ML Total Protein 7.0 6.4-8.2 GM/DL Albumin 4.2 3.2-4.5 GM/DL Lipase 46 8-78 U/L My Orders Orders - MADELAINE CHILDERS MD Ekg Tracing (01/19/22 13:03) Cbc With Automated Diff (01/19/22 13:11) Magnesium (01/19/22 13:11) Chest 1 View, Ap/Pa Only (01/19/22 13:11) Ekg Tracing (01/19/22 13:11) Comprehensive Metabolic Panel (01/19/22 13:11) Protime With Inr (01/19/22 13:11) Partial Thromboplastin Time (01/19/22 13:11) O2 (01/19/22 13:11) Monitor-Rhythm Ecg Trace Only (01/19/22 13:11) Ed Iv/Invasive Line Start (01/19/22 13:11) Lipase (01/19/22 13:11) Bnp [place] (01/19/22 13:11) Troponin I [place] (01/19/22 13:11) Aspirin Chewable Tablet (Baby Aspirin Ch (01/19/22 13:15) Lidocaine 2% Viscous 15 Ml (Xylocaine Vi (01/19/22 13:15) Famotidine Tablet (Pepcid Tablet) (01/19/22 13:11) Antacid Suspension (Mylanta Suspension (01/19/22 13:15) Oxycodone Immediate Rel Tablet (Oxyir Ta (01/19/22 14:00) Ondansetron Injection (Zofran Injectio (01/19/22 14:00) Troponin I [place] (01/19/22 13:55) Medications Given in ED Current Medications Medications Dose Ordered Sig/Misa Route Start Time Stop Time Status Last Admin Dose Admin Al Hydrox/Mg Hydrox/Simethicone 30 ml ONCE ONCE PO 01/19/22 13:15 01/19/22 13:16 DC 01/19/22 13:19 30 ML Aspirin 324 mg ONCE ONCE PO 01/19/22 13:15 01/19/22 13:16 DC 01/19/22 13:19 324 MG Lidocaine HCl 15 ml ONCE ONCE PO 01/19/22 13:15 01/19/22 13:16 DC 01/19/22 13:19 15 ML Ondansetron HCl 4 mg ONCE ONCE IVP 01/19/22 14:00 01/19/22 14:01 DC 01/19/22 14:03 4 MG Oxycodone HCl 5 mg ONCE ONCE PO 01/19/22 14:00 01/19/22 14:01 DC 01/19/22 14:03 5 MG Vital Signs/I&O 01/19/22 12:58 Temp 36.5 Pulse 94 Resp 17 B/P (MAP) 140/92 (108) Pulse Ox 100 O2 Delivery Room Air Blood Pressure Mean: 108 Progress Progress Note : Progress Note 61-year-old female with above history coming in due to chest pain. ABCs were intact and vitals were stable on presentation. Physical exam reassuring including no swelling or concerns for DVT. On review of the chart, the patient has been here numerous times this year for similar complaint. She was admitted relatively recently for it and had a negative stress test. An IV was placed here and basic labs were obtained in cluding cardiac biomarkers. Her troponin was negative x2. Symptoms did improve similarly to the past with a GI cocktail. I think is highly unlikely given many hours of constant pain, with a negative troponin that this is ACS related. She is not tachycardic, not hypoxic, not short of breath, no signs of a DVT, and overall I have a very low suspicion for PE. Chest x-ray with no obvious pneumonia or pneumothorax. Mediastinum is normal-appearing on x-ray as well, normal distal pulses, normal neuro exam, and I have a very low suspicion that this would be a dissection. I believe she is stable for discharge with outpatient follow-up. She was sent home with strict return precautions. Initial ECG Impression Date: Jan 19, 2022 Initial ECG Impression Time: 13:07 Initial ECG Rate: 92 Initial ECG Rhythm: Normal Sinus Comment Narrow QRS, normal axis, T wave flattening in the inferior leads and high lateral leads, appears similar to multiple prior EKGs Diagnostic Imaging Diagonstic Imaging: Xray Plain Films/CT/US/NM/MRI: chest Comments [facility]. [place], [place] NAME: KAILYN GRULLON [facility] REC#: [id number] PT STATUS: REG ER : 1960 PHYSICIAN: MADELAINE CHILDERS MD ADMIT DATE: 01/19/22/ER Draft Date of Exam:01/19/22 CHEST 1 VIEW, AP/PA ONLY INDICATION: Chest pain. TECHNIQUE/COMPARISON: Frontal chest obtained at 1:12 PM and compared to 09/30/2021. FINDINGS: The heart and mediastinal silhouette are normal in appearance. The lungs are clear. There is no pneumothorax or pleural fluid. IMPRESSION: Negative chest. Dictated on workstation # [id number] Dict: 01/19/22 1325 Trans: 01/19/22 1330 [id number] Interpreted by: LANCE MANN MD Electronically signed by: Departure Impression Primary Impression: Chest pain Qualified Codes: R07.82 - Intercostal pain Disposition: 01 HOME, SELF-CARE Condition: Stable Departure-Patient Inst. Decision time for Depature: 14:51 Referrals: JACLYN KONG DO (PCP/Family) Primary Care Physician Patient Instructions: Chest Pain That Is Not Caused by the Heart (DC) Add. Discharge Instructions: It does not appear like a life-threatening cause as of now for your chest pain. Please follow-up with your regular doctor and your seo professional. If anything worsens or you have concerns then please come back to the ER. Work/School Note: Work Release Form Date Seen in the Emergency Department: Jan 19, 2022 Return to Work: Jan 20, 2022 Restrictions: No Restrictions MADELAINE CHILDERS MD Jan 19, 2022 13:16
[2022-01-19 13:19] LABS: BASOPHILS # (AUTO) 0.1 10^3/uL (0.0-0.1); BASOPHILS % (AUTO) 1 % (0-10); EOSINOPHILS # (AUTO) 0.1 10^3/uL (0.0-0.3); EOSINOPHILS % (AUTO) 2 % (0-10); HEMATOCRIT 39 % (35-52); HEMOGLOBIN 12.8 g/dL (11.5-16.0); LYMPHOCYTES % (AUTO) 41 % (12-44); MEAN CORPUSCULAR HEMOGLOBIN 32 pg (25-34); MEAN CORPUSCULAR HGB CONC 33 g/dL (32-36); MEAN CORPUSCULAR VOLUME 98 fL (80-99); MEAN PLATELET VOLUME 11.6 fL (9.0-12.2); MONOCYTES # (AUTO) 0.4 X 10^3 (0.0-1.0); MONOCYTES % (AUTO) 8 % (0-12); NEUTROPHILS # (AUTO) 2.4 X 10^3 (1.8-7.8); NEUTROPHILS % (AUTO) 48 % (42-75); PLATELET COUNT 158 10^3/uL (130-400); WHITE BLOOD COUNT 4.9 10^3/uL (4.3-11.0)
[2022-01-19 13:29] LABS: INR 0.9 (0.8-1.4); PROTHROMBIN TIME PATIENT 12.5 SEC (12.2-14.7)
[2022-01-19 13:30] LABS: ALBUMIN 4.2 GM/DL (3.2-4.5); POTASSIUM 4.1 MMOL/L (3.6-5.0)
[2022-01-19 13:31] LABS: CALCIUM 9.1 MG/DL (8.5-10.1)
--- NOTE | 2022-01-19 13:31 | Diagnostic Imaging Report ---
INDICATION: Chest pain. TECHNIQUE/COMPARISON: Frontal chest obtained at 1:12 PM and compared to 09/30/2021. FINDINGS: The heart and mediastinal silhouette are normal in appearance. The lungs are clear. There is no pneumothorax or pleural fluid. IMPRESSION: Negative chest. Dictated by: Dictated on workstation # [id number]
[2022-01-19 13:34] LABS: BILIRUBIN,TOTAL 0.3 MG/DL (0.1-1.0)
[2022-01-19 13:36] LABS: CREATININE SERUM 1.06 MG/DL (0.60-1.30)
[2022-01-19 13:39] LABS: MAGNESIUM 2.1 MG/DL (1.6-2.4)
[2022-01-19] MEDS ORDERED: ONDANSETRON 4 MG/2 ML (SDV) Z0FRAN IVP ONE (14:00)
[2022-01-19 14:57] VITALS: BP 120/80
== END 2022-01-19 14:57 | disposition home or self-care (01) ==
LOC: EDUNIT# 12:53 → ER 12:55
DX: R07.89 Other chest pain (principal); Z88.4 Allergy status to anesthetic agent; Z88.5 Allergy status to narcotic agent
CPT/HCPCS: 36415; 71045; 80053; 83690; 83735; 83880; 84484; 85025; 85610; 85730; 93005; 93041

== ENCOUNTER 2022-03-05 11:37 | Emergency (ER) | payer MEDICARE, MEDICAID ==
[~2022-03-05] VITALS: Ht 167.7 cm; Wt 59.0 kg
[2022-03-05] MEDS ORDERED: KETOROLAC 15 MG/ML VIAL IVP ONE (13:15)
--- NOTE | 2022-03-05 13:19 | ED Back Pain ---
General Chief Complaint: Back Problems Stated Complaint: BACK/LEG PAIN Nursing Triage Note: PT AMB TO TRIAGE W C/O BACK PAIN X2 DAYS SX SHE FELT HER BACK POP WHILE CARRYING IN GROCERIES. PT REPORTS PAIN RADIATES DOWN RIGHT LEG, PT ALSO FEELS WEAK AND DIZZY SX THIS AM. PT A&OX4. Source of Information: Patient Exam Limitations: No Limitations History of Present Illness Date Seen by Provider: Mar 05, 2022 Time Seen by Provider: 12:45 Initial Comments Patient is a 61-year-old female who presents to the emergency department for evaluation of lower back pain that radiates down her right leg. She states the pain started when she was carrying some groceries and bent down to lay them on the floor and felt a popping sensation in her lower back. States that her right leg has had a burning sensation and she feels like it is slightly weaker than normal. Patient does have a history of femoropopliteal bypass in the right lower extremity. She denies any paleness in her right foot and states her has been checking her pulses in her right foot and they have been strong and regular. Patient states the pain in her back worsens with any bending twisting or other movement. She has taken OTC medications with minimal improvement in the symptoms. Allergies and Home Medications Allergies Coded Allergies: morphine (Unverified Allergy, Mild, VISUAL DISTURB, 10/06/08) tetracaine (Unverified Allergy, Mild, RASH, 10/09/08) tetracycline (Verified Allergy, Mild, HIVES, 10/26/06) nitroglycerin (Verified Allergy, Unknown, NAUSEA, 05/27/17) meperidine (Verified Adverse Reaction, Unknown, NAUSEA AND VOMITING, 10/26/06) Patient Home Medication List Home Medication List Reviewed: Yes Ascorbic Acid (Vitamin C) 500 Mg Tab.chew, 500 MG PO DAILY, (Reported) Entered as Reported by: DAVIS JON on 12/08/20 1429 Aspirin (Aspirin EC) 81 Mg Tablet.dr, 81 MG PO DAILY Prescribed by: EBER LOYD on 12/09/20 180 Atorvastatin Calcium (Lipitor) 20 Mg Tablet, 20 MG PO DAILY Prescribed by: EBER LOYD on 12/09/201800 Cholecalciferol (Vitamin D3) (Vitamin D3) 125 Mcg Capsule, 125 MCG PO DAILY, (Reported) Entered as Reported by: DAVIS JON on 12/08/20 1443 Duloxetine HCl (Cymbalta) 60 Mg Capsule.dr, 60 MG PO DAILY, (Reported) Entered as Reported by: DAVIS JON on 12/08/20 1427 Hydrocodone Bit/Acetaminophen (HYDROcodone/APAP 5 MG/325 MG TAB) 1 Tab Tab, 1 TAB PO Q4H PRN for PAIN-MODERATE (5-7) Prescribed by: Maxime Fam on 03/05/22 1444 Levothyroxine Sodium (Levothyroxine Sodium) 175 Mcg Tablet, 175 MCG PO DAILY, (Reported) Entered as Reported by: DAVIS JON on 12/08/20 1426 Levothyroxine Sodium (Levothyroxine) 112 Mcg Capsule, 112 MCG PO DAILY Prescribed by: EDWIN JAQUEZ on 09/30/21 1442 Methocarbamol (Methocarbamol) 750 Mg Tablet, 750 MG PO Q6-8HR Prescribed by: Maxime Fam on 03/05/22 1443 Topiramate (Topiramate) 50 Mg Tablet, 50 MG PO BID, (Reported) Entered as Reported by: DAVIS JON on 12/08/20 1426 Trazodone HCl (Trazodone HCl) 150 Mg Tablet, 150 MG PO HS, (Reported) Entered as Reported by: DAVIS JON on 12/08/20 1428 Review of Systems Constitutional: no symptoms reported EENTM: no symptoms reported Respiratory: no symptoms reported Cardiovascular: no symptoms reported Gastrointestinal: no symptoms reported Genitourinary: no symptoms reported Musculoskeletal: back pain Skin: no symptoms reported Psychiatric/Neurological: No Symptoms Reported Past Chyasoe-Wowxwb-Zlooub Hx Patient Social History Tobacco Use?: No Use of E-Cig and/or Vaping dev: No Substance use?: No Alcohol Use?: No Immunizations Up To Date Influenza Vaccine Up-to-Date: No; Not Current First/Initial COVID19 Vaccinat: 08/01/20 Second COVID19 Vaccination Yoav: 08/30/20 Third COVID19 Vaccination Date: 2020 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: [employer] X4 Seasonal Allergies Seasonal Allergies: Yes Past Medical History Surgery/Hospitalization HX: pmh: pvd, cad, high chol, htn, hypothyroid sx: bypass in r leg, stents in r leg x5, l leg x1 Surgeries: Yes (APPY,HYST,PARTIAL HYSTERECTOMY, fem-pop, leg stents) Appendectomy, Bowel Surgery, Coronary Stent, Gallbladder, Hysterectomy Respiratory: No Asthma Cardiac: Yes Coronary Artery Disease, Heart Attack, High Cholesterol, Hypertension, Peripheral Vascular Neurological: Yes Headaches /Migraines 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 5.0oz. 73.660665by; 20.00 BMI Method:Stated General Appearance: No Apparent Distress, WD/WN HEENT: PERRL/EOMI, TMs Normal, Normal ENT Inspection, Pharynx Normal Neck: Full Range of Motion, Normal Inspection, Non Tender, Supple Cardiovascular: Regular Rate, Rhythm Respiratory: Chest Non Tender, Lungs Clear, Normal Breath Sounds, No Accessory Muscle Use, No Respiratory Distress Gastrointestinal: Non Tender, Soft Back: Decreased Range of Motion; No Muscle Spasm, No Vertebral Tenderness Extremity: Normal Range of Motion, Non Tender, No Calf Tenderness Neurologic/Psychiatric: Alert, Oriented x3, No Motor/Sensory Deficits, Normal Mood/Affect, monitor car 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-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 Norm as Tested Skin: Normal Color, Warm/Dry Lymphatic: No Adenopathy Progress/Results/Core Measures Results/Orders My Orders Orders - MAXIME FAM APRN Ct Lumbar Spine Wo (03/05/22 13:05) Ketorolac Injection (Toradol Injection) (03/05/22 13:15) Hydrocodone/Apap 5/325 Tablet (Lortab 5 (03/05/22 13:30) Methocarbamol Tablet (Robaxin Tablet) (03/05/22 15:00) Medications Given in ED Current Medications Medications Dose Ordered Sig/Misa Route Start Time Stop Time Status Last Admin Dose Admin Acetaminophen/ Hydrocodone Bitart 1 ea ONCE ONCE PO 03/05/22 13:30 03/05/22 13:31 DC 03/05/22 13:36 1 EA Ketorolac Tromethamine 15 mg ONCE ONCE IVP 03/05/22 13:15 03/05/22 13:16 DC 03/05/22 13:26 15 MG Vital Signs/I&O 03/05/22 11:47 Temp 36.5 Pulse 88 Resp 20 B/P (MAP) 129/89 (102) Pulse Ox 98 O2 Delivery Room Air Blood Pressure Mean: 102 Progress Progress Note : Progress Note Patient is nontoxic and well-hydrated on exam. No adventitious lung sounds or increased work of breathing noted. Patient does have some paraspinal tenderness to palpation of the lumbar region bilaterally. She has very strong PT and DP pulses in the right foot. I have a low suspicion for any issue regarding her femoropopliteal bypass. The pain is described as well as the HPI is more consistent with radicular lumbar pain. CT of the lumbar spine obtained which is acutely negative. Have very low suspicion for cauda equina or epidural abscess/hematoma. Patient denies any saddle anesthesia or bowel/bladder incontinence. Patient is able to ambulate but states he does increase the pain. She denies any history of diabetes or IV drug use. We will treat symptomatically with analgesia. Discussed importance of close follow-up with PCP. Return precautions for urgent symptomology discussed. Patient verbalized understanding. Departure Impression Primary Impression: Lumbar radiculopathy Disposition: 01 HOME, SELF-CARE Condition: Stable Departure-Patient Inst. Decision time for Depature: 14:40 Referrals: JACLYN KONG DO (PCP/Family) Primary Care Physician Patient Instructions: Radiculopathy (DC) Scripts Methocarbamol (Methocarbamol) 750 Mg Tablet 750 MG PO Q6-8HR for Back Pain for 3 Days, #12 TAB 0 Refills Prov: MAXIME FAM BRUSH MACHINE SETTER 03/05/22 Hydrocodone Bit/Acetaminophen (HYDROcodone/APAP 5 MG/325 MG TAB) 1 Tab Tab 1 TAB PO Q4H PRN for PAIN-MODERATE (5-7) for 3 Days, #18 TAB Prov: MAXIME FAM BRUSH MACHINE SETTER 03/05/22 MAXIME FAM APRN Mar 05, 2022 13:19
[2022-03-05] MEDS ORDERED: HYDROcodone/APAP 5 MG/325 MG (LORTAB) TAB PO ONE (13:30)
--- NOTE | 2022-03-05 14:04 | Diagnostic Imaging Report ---
PROCEDURE: CT lumbar spine without contrast. TECHNIQUE: Multiple contiguous axial images were obtained through the lumbar spine without the use of intravenous contrast. Sagittal and coronal reformations were then performed. Auto Exposure Controls were utilized during the CT exam to meet ALARA standards for radiation dose reduction. INDICATION: Popping and pain following lifting injury 3 days ago. CORRELATED with a CT angiogram aortoiliac vessels December 2020. FINDINGS: The lumbar statures stable and normal. The alignment anatomic. The pedicles and pars intact. No fracture or acute endplate irregularity. No substantial canal stenosis. No paravertebral mass, hemorrhage or fluid collection. Aortic atherosclerotic vascular calcifications nonaneurysmal. There is stenting of bilateral iliac arteries. IMPRESSION: No lumbar fracture or traumatic malalignment. Dictated by: Dictated on workstation # [id number]
[2022-03-05] MEDS ORDERED: METH-732 PO (14:43)
[2022-03-05] MEDS ORDERED: ACHD5005 PO (14:43)
[2022-03-05 14:59] VITALS: BP 126/82
[2022-03-05] MEDS ORDERED: METHOCARBAMOL 750 MG (ROBAXIN) TAB PO ONE (15:00)
== END 2022-03-05 15:04 | disposition home or self-care (01) ==
LOC: EDUNIT# 11:37 → ER 11:40
DX: M54.16 Radiculopathy, lumbar region (principal); Z88.5 Allergy status to narcotic agent; X50.1XXA Overexertion from prolonged static or awkward postures, initial encounter
CPT/HCPCS: 72131; 99283

== ENCOUNTER 2022-03-23 20:28 | Emergency (ER) | payer MEDICARE, MEDICAID ==
[~2022-03-23] VITALS: Ht 167 cm; Wt 60.0 kg
[~2022-03-23 20:28] MED LIST changes: +ACHD5005 PO; +METH-732 PO
[2022-03-23] MEDS ORDERED: NS IV 1000 ML 1,000 ML IV SCH (21:00)
[2022-03-23] MEDS ORDERED: ONDANSETRON 4 MG/2 ML (SDV) Z0FRAN IVP ONE (21:00)
[2022-03-23 21:09] LABS: BASOPHILS # (AUTO) 0.1 10^3/uL (0.0-0.1); BASOPHILS % (AUTO) 1 % (0-10); EOSINOPHILS # (AUTO) 0.2 10^3/uL (0.0-0.3); EOSINOPHILS % (AUTO) 2 % (0-10); HEMATOCRIT 39 % (35-52); HEMOGLOBIN 12.9 g/dL (11.5-16.0); LYMPHOCYTES # (AUTO) 1.6 10^3/uL (1.0-4.0); LYMPHOCYTES % (AUTO) 23 % (12-44); MEAN CORPUSCULAR HEMOGLOBIN 32 pg (25-34); MEAN CORPUSCULAR HGB CONC 33 g/dL (32-36); MEAN CORPUSCULAR VOLUME 96 fL (80-99); MEAN PLATELET VOLUME 12.2 fL (9.0-12.2); MONOCYTES # (AUTO) 0.5 10^3/uL (0.0-1.0); MONOCYTES % (AUTO) 7 % (0-12); NEUTROPHILS # (AUTO) 4.5 10^3/uL (1.8-7.8); NEUTROPHILS % (AUTO) 66 % (42-75); PLATELET COUNT 155 10^3/uL (130-400); WHITE BLOOD COUNT 6.8 10^3/uL (4.3-11.0)
[2022-03-23 21:21] LABS: ALBUMIN 4.4 GM/DL (3.2-4.5); POTASSIUM 3.6 MMOL/L (3.6-5.0)
[2022-03-23 21:24] LABS: TOTAL PROTEIN 7.1 GM/DL (6.4-8.2)
[2022-03-23 21:25] LABS: BILIRUBIN,TOTAL 0.7 MG/DL (0.1-1.0)
[2022-03-23 21:27] LABS: CREATININE SERUM 1.12 MG/DL (0.60-1.30)
[2022-03-23] MEDS ORDERED: IOHEXOL 350 MG/ML 100 ML (OMNIPAQUE 350) VIAL IV ONE (21:45)
[2022-03-23] MEDS ORDERED: NS 100 ML (IVPB) BAG IV ONE (21:45)
--- NOTE | 2022-03-23 21:52 | Diagnostic Imaging Report ---
PROCEDURE: CT abdomen and pelvis with contrast. TECHNIQUE: Multiple contiguous axial images were obtained through the abdomen and pelvis after administration of intravenous contrast. Auto Exposure Controls were utilized during the CT exam to meet ALARA standards for radiation dose reduction. All CT scans use one or more of the following dose optimizing techniques: automated exposure control, MA and/or KvP adjustment based on patient size and exam type or iterative reconstruction. INDICATION: Lower abdominal pain and constipation. COMPARISON: No prior studies are available for comparison. The lung bases are clear. The liver is unremarkable. No liver mass is identified. The gallbladder is surgically absent. There is no biliary ductal dilatation. The pancreas and spleen are unremarkable. No adrenal mass is identified. Kidneys are unremarkable. Aorta is calcified but nonaneurysmal. Bowel loops are normal caliber. There is no obstruction. There is moderate stool in the rectum. No inflammatory changes are seen. The bladder is unremarkable. Uterus appears to be surgically absent. There is no free fluid or fluid collection identified. Bony structures are nonacute. IMPRESSION: Essentially unremarkable CT of the abdomen and pelvis apart from moderate stool in the rectal vault, correlate for constipation. No acute feature is detected. Dictated by: Dictated on workstation # [id number]
[2022-03-23] MEDS ORDERED: MINERAL OIL ENEMA 133 ML BTL PR ONE (22:00)
[2022-03-23] MEDS ORDERED: FLEET ENEMA ADULT 1 EA BTL PR ONE (22:15)
--- NOTE | 2022-03-23 22:15 | ED Abdominal Pain ---
General Chief Complaint: Abdominal/GI Problems Stated Complaint: CONSTIPATION Nursing Triage Note: Patient presented to the ER tonight with complaints of low abdominal pain. She advised that she has not had a bowel movement x 5days and that approximately 4 years ago she was diagnosed with a bowel obstruction. She advised she has been unable to urinate since this morning and that the pain is an 8/10. Source of Information: Patient Exam Limitations: No Limitations History of Present Illness Date Seen by Provider: Mar 23, 2022 Time Seen by Provider: 21:42 Allergies and Home Medications Allergies Coded Allergies: morphine (Unverified Allergy, Mild, VISUAL DISTURB, 10/06/08) tetracaine (Unverified Allergy, Mild, RASH, 10/09/08) tetracycline (Verified Allergy, Mild, HIVES, 10/26/06) nitroglycerin (Verified Allergy, Unknown, NAUSEA, 05/27/17) meperidine (Verified Adverse Reaction, Unknown, NAUSEA AND VOMITING, 10/26/06) Patient Home Medication List Ascorbic Acid (Vitamin C) 500 Mg Tab.chew, 500 MG PO DAILY, (Reported) Entered as Reported by: DAVIS JON on 12/08/20 1429 Aspirin (Aspirin EC) 81 Mg Tablet., 81 MG PO DAILY Prescribed by: EBER LOYD on 12/09/20 180 Atorvastatin Calcium (Lipitor) 20 Mg Tablet, 20 MG PO DAILY Prescribed by: EBER LOYD on 12/09/20 180 Cholecalciferol (Vitamin D3) (Vitamin D3) 125 Mcg Capsule, 125 MCG PO DAILY, (Reported) Entered as Reported by: DAVIS JON on 12/08/20 1443 Duloxetine HCl (Cymbalta) 60 Mg Capsule.dr, 60 MG PO DAILY, (Reported) Entered as Reported by: DAVIS JON on 12/08/20 1427 Hydrocodone Bit/Acetaminophen (HYDROcodone/APAP 5 MG/325 MG TAB) 1 Tab Tab, 1 TAB PO Q4H PRN for PAIN-MODERATE (5-7) Prescribed by: Maxime Fam on 03/05/22 1444 Levothyroxine Sodium (Levothyroxine Sodium) 175 Mcg Tablet, 175 MCG PO DAILY, (Reported) Entered as Reported by: DAVIS JON on 12/08/20 1426 Levothyroxine Sodium (Levothyroxine) 112 Mcg Capsule, 112 MCG PO DAILY Prescribed by: EDWIN JAQUEZ on 09/30/21 1442 Methocarbamol (Methocarbamol) 750 Mg Tablet, 750 MG PO Q6-8HR Prescribed by: Maxime Fam on 03/05/22 1443 Topiramate (Topiramate) 50 Mg Tablet, 50 MG PO BID, (Reported) Entered as Reported by: DAVIS JON on 12/08/20 1426 Trazodone HCl (Trazodone HCl) 150 Mg Tablet, 150 MG PO HS, (Reported) Entered as Reported by: DAVIS JON on 12/08/20 1428 Past Hjxnlgk-Rkjvdk-Avwimm Hx Patient Social History Tobacco Use?: No Substance use?: No Alcohol Use?: No Immunizations Up To Date First/Initial COVID19 Vaccinat: 08/01/20 Second COVID19 Vaccination Yoav: 08/30/20 Third COVID19 Vaccination Date: 2020 Seasonal Allergies Seasonal Allergies: Yes Past Medical History Surgery/Hospitalization HX: pmh: pvd, cad, high chol, htn, hypothyroid sx: bypass in r leg, stents in r leg x5, l leg x1 Surgeries: Yes (APPY,HYST,PARTIAL HYSTERECTOMY, fem-pop, leg stents) Appendectomy, Bowel Surgery, Coronary Stent, Gallbladder, Hysterectomy Respiratory: No Asthma Cardiac: Yes Coronary Artery Disease, Heart Attack, High Cholesterol, Hypertension, Peripheral Vascular Neurological: Yes Headaches /Migraines 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 5.0oz. 73.364148od; 21.00 BMI Method:Stated Progress/Results/Core Measures Results/Orders Lab Results Laboratory Tests Test 03/23/22 21:02 Range/Units White Blood Count 6.8 4.3-11.0 10^3/uL Red Blood Count 4.04 3.80-5.11 10^6/uL Hemoglobin 12.9 11.5-16.0 g/dL Hematocrit 39 35-52 % Mean Corpuscular Volume 96 80-99 fL Mean Corpuscular Hemoglobin 32 25-34 pg Mean Corpuscular Hemoglobin Concent 33 32-36 g/dL Red Cell Distribution Width 12.2 10.0-14.5 % Platelet Count 155 130-400 10^3/uL Mean Platelet Volume 12.2 9.0-12.2 fL Immature Granulocyte % (Auto) 0 % Neutrophils (%) (Auto) 66 42-75 % Lymphocytes (%) (Auto) 23 12-44 % Monocytes (%) (Auto) 7 0-12 % Eosinophils (%) (Auto) 2 0-10 % Basophils (%) (Auto) 1 0-10 % Neutrophils # (Auto) 4.5 1.8-7.8 10^3/uL Lymphocytes # (Auto) 1.6 1.0-4.0 10^3/uL Monocytes # (Auto) 0.5 0.0-1.0 10^3/uL Eosinophils # (Auto) 0.2 0.0-0.3 10^3/uL Basophils # (Auto) 0.1 0.0-0.1 10^3/uL Immature Granulocyte # (Auto) 0.0 0.0-0.1 10^3/uL Sodium Level 140 135-145 MMOL/L Potassium Level 3.6 3.6-5.0 MMOL/L Chloride Level 108 H 98-107 MMOL/L Carbon Dioxide Level 21 21-32 MMOL/L Anion Gap 11 5-14 MMOL/L Blood Urea Nitrogen 16 7-18 MG/DL Creatinine 1.12 0.60-1.30 MG/DL Estimat Glomerular Filtration Rate 56 BUN/Creatinine Ratio 14 Glucose Level 102 70-105 MG/DL Calcium Level 9.0 8.5-10.1 MG/DL Corrected Calcium 8.7 8.5-10.1 MG/DL Total Bilirubin 0.7 0.1-1.0 MG/DL Aspartate Amino Transf (AST/SGOT) 13 5-34 U/L Alanine Aminotransferase (ALT/SGPT) 16 0-55 U/L Alkaline Phosphatase 113 40-136 U/L C-Reactive Protein High Sensitivity 0.34 0.00-0.50 MG/DL Total Protein 7.1 6.4-8.2 GM/DL Albumin 4.4 3.2-4.5 GM/DL My Orders Orders - LUIS LUBIN APRN Ed Iv/Invasive Line Start (03/23/22 20:52) Cbc With Automated Diff (03/23/22 20:52) Comprehensive Metabolic Panel (03/23/22 20:52) Hs C Reactive Protein (03/23/22 20:52) Ct Abdomen/Pelvis W (03/23/22 20:52) Ondansetron Injection (Zofran Injectio (03/23/22 21:00) Ns Iv 1000 Ml (Sodium Chloride 0.9%) (03/23/22 21:00) Iohexol Injection (Omnipaque 350 Mg/Ml 1 (03/23/22 21:45) Ns (Ivpb) (Sodium Chloride 0.9% Ivpb Bag (03/23/22 21:45) Na Phos/Na Biphos Enema (Fleet Enema Rene (03/23/22 22:15) Medications Given in ED Current Medications Medications Dose Ordered Sig/Misa Route Start Time Stop Time Status Last Admin Dose Admin Iohexol 100 ml ONCE ONCE IV 03/23/22 21:45 03/23/22 21:46 DC 03/23/22 21:40 70 ML Ondansetron HCl 4 mg ONCE ONCE IVP 03/23/22 21:00 03/23/22 21:01 DC 03/23/22 21:02 4 MG Sodium Chloride 100 ml ONCE ONCE IV 03/23/22 21:45 03/23/22 21:46 DC 03/23/22 21:40 80 ML Vital Signs/I&O 03/23/22 20:46 Temp 36.0 Pulse 87 Resp 20 B/P (MAP) 145/90 (108) Pulse Ox 98 O2 Delivery Room Air Blood Pressure Mean: 108 Departure Impression Primary Impression: Constipation Disposition: 01 HOME, SELF-CARE Condition: Improved Departure-Patient Inst. Decision time for Depature: 22:13 Referrals: JACLYN KONG DO (PCP/Family) Primary Care Physician Patient Instructions: Constipation, Adult ED Add. Discharge Instructions: Plan: 1. May take Miralax daily to help with constipation. 2. Drink plenty of water. 3. Return to ER for any new, concerning, or worsening symptoms. All discharge instructions reviewed with patient and/or family. Voiced understanding. LUIS LUBIN CIRCULAR RIPSAW OPERATOR Mar 23, 2022 22:14
[2022-03-23 22:46] VITALS: BP 117/78
== END 2022-03-23 22:48 | disposition home or self-care (01) ==
LOC: EDUNIT# 20:28 → ER 20:29
DX: K59.00 Constipation, unspecified (principal); R10.30 Lower abdominal pain, unspecified; Z90.49 Acquired absence of other specified parts of digestive tract; Z87.19 Personal history of other diseases of the digestive system
CPT/HCPCS: 36415; 74177; 80053; 85025; 86141

== ENCOUNTER 2022-08-02 17:42 | Emergency (ER) | payer MEDICARE, MEDICAID ==
[~2022-08-02] VITALS: Ht 167.7 cm; Wt 61.4 kg
[~2022-08-02 17:42] MED LIST changes: +TOPI-241 PO; -TOPI50TA13 PO
[2022-08-02] MEDS ORDERED: NS IV 1000 ML 1,000 ML IV STA (18:35)
--- NOTE | 2022-08-02 18:39 | ED Headache ---
General Chief Complaint: Head/Cervical Problems Stated Complaint: MIGRAINE Source: patient Exam Limitations: no limitations (MADELAINE FAY) History of Present Illness Date Seen by Provider: August 02, 2022 Time Seen by Provider: 18:37 Initial Comments Patient is a 62-year-old female with a history of migraines who presents ED with right-sided hip pain. Hip pain started 3 days ago initially intermittent. Starts the front part of her head radiate to the occipital region. Pain is described as pressure. This pain has been constant today. Several bouts of vomiting. Sensitivity to light. She reports associated vertigo. Rates pain 9 out of 10. She took her abortive medication sumatriptan without much improvement. She attempted anti-inflammatories without much improvement. History of migraines and states this feels very similar. Few episodes of diarrhea yesterday. Denies chest pain, cough, shortness of breath, visual loss, ear pain, sore throat, neck pain, abdominal pain, dysuria (MADELAINE FAY) Allergies and Home Medications Allergies Coded Allergies: morphine (Unverified Allergy, Mild, VISUAL DISTURB, 10/06/08) tetracaine (Unverified Allergy, Mild, RASH, 10/09/08) tetracycline (Verified Allergy, Mild, HIVES, 10/26/06) nitroglycerin (Verified Allergy, Unknown, NAUSEA, 05/27/17) meperidine (Verified Adverse Reaction, Unknown, NAUSEA AND VOMITING, 10/26/06) Patient Home Medication List Home Medication List Reviewed: Yes (MADELAINE FAY) Ascorbic Acid (Vitamin C) 500 Mg Tab.chew, 500 MG PO DAILY, (Reported) Entered as Reported by: DAVIS JON on 12/08/20 1429 Aspirin (Aspirin EC) 81 Mg Tablet., 81 MG PO DAILY Prescribed by: EBER LOYD on 12/09/20 180 Atorvastatin Calcium (Lipitor) 20 Mg Tablet, 20 MG PO DAILY Prescribed by: EBER LOYD on 12/09/201800 Cholecalciferol (Vitamin D3) (Vitamin D3) 125 Mcg Capsule, 125 MCG PO DAILY, (Reported) Entered as Reported by: DAVIS JON on 12/08/20 1443 Duloxetine HCl (Cymbalta) 60 Mg Capsule., 60 MG PO DAILY, (Reported) Entered as Reported by: DAVIS JON on 12/08/20 1427 Hydrocodone Bit/Acetaminophen (HYDROcodone/APAP 5 MG/325 MG TAB) 1 Tab Tab, 1 TAB PO Q4H PRN for PAIN-MODERATE (5-7) Prescribed by: Maxime Fam on 03/05/22 1444 Levothyroxine Sodium (Levothyroxine Sodium) 175 Mcg Tablet, 175 MCG PO DAILY, (Reported) Entered as Reported by: DAVIS JON on 12/08/20 1426 Levothyroxine Sodium (Levothyroxine) 112 Mcg Capsule, 112 MCG PO DAILY Prescribed by: EDWIN JAQUEZ on 09/30/21 1442 Methocarbamol (Methocarbamol) 750 Mg Tablet, 750 MG PO Q6-8HR Prescribed by: Maxime Fam on 03/05/22 1443 Topiramate (Topiramate) 50 Mg Tablet, 50 MG PO BID, (Reported) Entered as Reported by: DAVIS JON on 12/08/20 1426 Trazodone HCl (Trazodone HCl) 150 Mg Tablet, 150 MG PO HS, (Reported) Entered as Reported by: DAVIS JON on 12/08/20 1428 Review of Systems Review of Systems Constitutional: No chills, No diaphoresis, No fever, No malaise, No weakness Eyes: Denies Blindness, Denies Drainage, Denies Decreased Acuity Ears, Nose, Mouth, Throat: denies ear pain, denies ear discharge Respiratory: No cough, No dyspnea on exertion Cardiovascular: No chest pain, No edema Gastrointestinal: No abdominal pain; diarrhea, nausea, vomiting Genitourinary: No decreased output, No discharge, No dysuria, No frequency Musculoskeletal: No back pain, No gout, No joint pain Skin: No change in color, No change in hair/nails (MADELAINE FAY) All Other Systems Reviewed Negative Unless Noted: Yes (MADELAINE FAY) Past Hwgnmdc-Srkreo-Qihghx Hx Patient Social History Tobacco Use?: Yes Tobacco type used: Cigarettes Smoking Status: Current Everyday Smoker Use of E-Cig and/or Vaping dev: No Substance use?: No Alcohol Use?: No Pt feels they are or have been: No (MADELAINE FAY) Immunizations Up To Date Influenza Vaccine Up-to-Date: Yes; Up-to-Date First/Initial COVID19 Vaccinat: 08/01/20 Second COVID19 Vaccination Yoav: 08/30/20 Third COVID19 Vaccination Date: 2020 (MADELAINE FAY) Seasonal Allergies Seasonal Allergies: Yes (MADELAINE FAY) Past Medical History Surgery/Hospitalization HX: pmh: pvd, cad, high chol, htn, hypothyroid sx: bypass in r leg, stents in r leg x5, l leg x1 Surgeries: Yes (APPY,HYST,PARTIAL HYSTERECTOMY, fem-pop, leg stents) Appendectomy, Bowel Surgery, Coronary Stent, Gallbladder, Hysterectomy Respiratory: No Asthma Cardiac: Yes Coronary Artery Disease, Heart Attack, High Cholesterol, Hypertension, Peripheral Vascular Neurological: Yes Headaches /Migraines 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 Genitourinary: No Gastrointestinal: Yes Gastroesophageal Reflux, Diverticulosis Musculoskeletal: Yes Arthritis Endocrine: Yes Hypothyroidsim HEENT: No Cancer: No Psychosocial: Yes Anxiety, Depression Integumentary: No Blood Disorders: No (MADELAINE FAY) Family Medical History Heart Disease, CAD Over 55 Years Old (MADELAINE FAY) Physical Exam Vital Signs Vital Signs - First Documented 08/02/22 18:20 Temp 35.8 Pulse 88 Resp 14 B/P (MAP) 143/97 (112) Pulse Ox 97 O2 Delivery Room Air (LAURA THOMPSON MD) Vital Signs Capillary Refill : (MADELAINE FAY) Height, Weight, BMI Height: 5'6.00" Weight: 161lbs. 5.0oz. 73.062902mc; 21.00 BMI Method:Stated General Appearance: WD/WN, no apparent distress HEENT: PERRL/EOMI, normal ENT inspection, TMs normal, pharynx normal Neck: non-tender, full range of motion Cardiovascular: regular rate, rhythm, no edema, no gallop, no JVD Respiratory: chest non-tender, lungs clear, normal breath sounds, no respiratory distress, no accessory muscle use Gastrointestinal: normal bowel sounds, non tender, soft, no organomegaly Back: normal inspection, no CVA tenderness, no vertebral tenderness Extremities: normal range of motion, non-tender, normal inspection, no pedal edema Psychiatric: alert, oriented x 3 Crainal Nerves: normal hearing, normal speech, PERRL Coordination/Gait: normal finger to nose, normal gait Motor/Sensory: no motor deficit, no sensory deficit, no pronator drift Skin: normal color, warm/dry (MADELAINE FAY) Progress/Results/Core Measures Results/Orders Medications Given in ED Current Medications Medications Dose Ordered Sig/Misa Route Start Time Stop Time Status Last Admin Dose Admin Diphenhydramine HCl 25 mg ONCE ONCE IVP 08/02/22 18:45 08/02/22 18:46 DC 08/02/22 18:58 25 MG Ketorolac Tromethamine 30 mg ONCE ONCE IVP 08/02/22 18:45 08/02/22 18:46 DC 08/02/22 18:57 30 MG Prochlorperazine Edisylate 10 mg ONCE ONCE IV 08/02/22 18:45 08/02/22 18:46 DC 08/02/22 19:01 10 MG (LAURA THOMPSON MD) Vital Signs/I&O 08/02/22 08/02/22 18:20 19:46 Temp 35.8 Pulse 88 87 Resp 14 16 B/P (MAP) 143/97 (112) 129/84 Pulse Ox 97 95 O2 Delivery Room Air Room Air (LAURA THOMPSON MD) Departure Communication (PCP) Reviewed previous ER visits, H&P, lab testing. History of migraines. Today's head pain feels very similar to her migraines. No focal neural deficits. Associated photophobia, nausea and vomiting. No improvement with her medication at home. She takes sumatriptan. Due to her current complaint migraine cocktail was ordered. Due to no neurological red flag findings and head pain that feels very similar to her migraines so imaging was held. Denies worst headache of her life. She is afebrile. Patient without any meningeal signs. migraine cocktail with near resolution of her head pain after 2 hours of observation. Patient ready to be discharged. Patient will be discharged with strict return precautions. Patient feels much better at this time. Return precaution were discussed. (MADELAINE FAY) Impression Primary Impression: Migraine Disposition: HOME, SELF-CARE Condition: Stable Departure-Patient Inst. Decision time for Depature: :42 (MADELAINE FAY) Referrals: JACLYN KONG DO (PCP/Family) Primary Care Physician Patient Instructions: Migraines (DC) Add. Discharge Instructions: Recommend following up with your primary care physician for further evaluation. return back to ED if symptoms worsen All discharge instructions reviewed with patient and/or family. Voiced understanding. ATTENDING PHYSICIAN NOTE: I was physically present as attending physician in the emergency department during the care of this patient, but I was not directly involved in the decision making or delivery of care for this patient. (LAURA THOMPSON MD) MADELAINE FAY August 02, 2022 18:39 LAURA THOMPSON MD August 03, 2022 04:06
[2022-08-02] MEDS ORDERED: PROCHLORPERAZINE 10 MG/2ML INJ (COMPAZINE) IV ONE (18:45)
[2022-08-02] MEDS ORDERED: diphenhydrAMINE 50 MG/ML INJ (BENADRYL) IVP ONE (18:45)
[2022-08-02] MEDS ORDERED: KETOROLAC 30 MG/ML VIAL IVP ONE (18:45)
[2022-08-02 19:46] VITALS: BP 129/84
== END 2022-08-02 19:46 | disposition home or self-care (01) ==
LOC: EDUNIT# 17:42 → ER 17:43
DX: G43.909 Migraine, unspecified, not intractable, without status migrainosus (principal); F17.210 Nicotine dependence, cigarettes, uncomplicated

== ENCOUNTER 2022-08-18 11:45 | Observation (INO) | payer MEDICARE, MEDICAID ==
[~2022-08-18] VITALS: Ht 167 cm; Wt 69.0 kg
[2022-08-18] VITALS (11 sets, daily range): BP systolic 85–124; BP diastolic 42–100
[~2022-08-18 11:45] MED LIST changes: -DULO60CA59 PO; -LEVO150T6 PO
--- NOTE | 2022-08-18 11:54 | ED Chest Pain ---
General Chief Complaint: Chest Pain Stated Complaint: CHEST PAINS Nursing Triage Note: ARRIVED VIA AMB FROM HOME WITH CONTINUING CHEST PAIN. PT HAD A STRESS TEST APPX 1.5 HR AGO AND HAD CHEST PAIN AFTER. WAS GIVEN X2 NITRO. PT THEN WENT HOME AND WAS TOLD TO COME TO THE ER WITH FURTHER CHEST PAIN IF IT CAME BACK. Source: patient Exam Limitations: no limitations History of Present Illness Date Seen by Provider: August 18, 2022 Time Seen by Provider: 11:48 Initial Comments 62-year-old female presents to the emergency department today for chest pain. She had a stress test about an hour and a half ago and had chest pain during her test and after. They gave her 2 nitroglycerin and her pain went away. She was discharged home with follow-up tomorrow with Dr. lFores for scheduling of likely heart cath. She went home and was resting and had a recurrence of her pain. She currently rates her pain 8/10 mid central dull pressure. Prior to this she was having chest pain with any exertion whatsoever which was the reason for her stress test in the first place. She does get short of breath with her symptoms. No diaphoresis. No recent illnesses. Notably she does have bilateral femoral stents. All other systems reviewed and negative except documented per HPI. Voice recognition software was used to help create this chart Allergies and Home Medications Allergies Coded Allergies: morphine (Unverified Allergy, Mild, VISUAL DISTURB, 10/06/08) tetracaine (Unverified Allergy, Mild, RASH, 10/09/08) tetracycline (Verified Allergy, Mild, HIVES, 10/26/06) nitroglycerin (Verified Allergy, Unknown, NAUSEA, 05/27/17) meperidine (Verified Adverse Reaction, Unknown, NAUSEA AND VOMITING, 10/26/06) Patient Home Medication List Home Medication List Reviewed: Yes Cholecalciferol (Vitamin D3) (Vitamin D3) 125 Mcg (5000 Unit) Capsule, 125 MCG PO DAILY, (Reported) Entered as Reported by: JACLYN BLUE on 08/18/221510 Last Action: Reviewed Duloxetine HCl (Duloxetine HCl) 60 Mg Capsule.dr, 60 MG PO DAILY, (Reported) Entered as Reported by: JACLYN BLUE on 08/18/221510 Last Action: Reviewed Fluticasone Propionate (Fluticasone Propionate) 50 Mcg/Actuation Spiro.susp, 2 SPRAYS NSEACH DAILY PRN for CONGESTION, (Reported) Entered as Reported by: JACLYN BLUE on 08/18/221510 Last Action: Reviewed Levothyroxine Sodium (Levothyroxine Sodium) 150 Mcg Tablet, 150 MCG PO DAILY, (Reported) Entered as Reported by: JACLYN BLUE on 08/18/221510 Last Action: Reviewed Topiramate (Topiramate) 50 Mg Tablet, 50 MG PO BID, (Reported) Entered as Reported by: DAVIS JON on 12/08/20 142 Last Action: Reviewed Trazodone HCl (Trazodone HCl) 150 Mg Tablet, 225 MG PO HS, (Reported) Entered as Reported by: JACLYN BLUE on 08/18/221510 Last Action: Reviewed Discontinued Medications Ascorbic Acid (Vitamin C) 500 Mg Tab.chew, 500 MG PO DAILY, (Reported) Discontinued Reason: No Longer Taking Entered as Reported by: DAVIS JON on 12/08/20 142 Last Action: Discontinued Aspirin (Aspirin EC) 81 Mg Tablet., 81 MG PO DAILY Discontinued Reason: No Longer Taking Prescribed by: EBER LOYD on 12/09/201800 Last Action: Discontinued Atorvastatin Calcium (Lipitor) 20 Mg Tablet, 20 MG PO DAILY Discontinued Reason: No Longer Taking Prescribed by: EBER LOYD on 12/09/201800 Last Action: Discontinued Cholecalciferol (Vitamin D3) (Vitamin D3) 125 Mcg Capsule, 125 MCG PO DAILY, (Reported) Discontinued Reason: No Longer Taking Entered as Reported by: DAVIS JON on 12/08/20 1443 Last Action: Discontinued Duloxetine HCl (Cymbalta) 60 Mg Capsule.dr, 60 MG PO DAILY, (Reported) Discontinued Reason: No Longer Taking Entered as Reported by: DAVIS JON on 12/08/20 1427 Last Action: Discontinued Hydrocodone Bit/Acetaminophen (HYDROcodone/APAP 5 MG/325 MG TAB) 1 Tab Tab, 1 TAB PO Q4H PRN for PAIN-MODERATE (5-7) Discontinued Reason: No Longer Taking Prescribed by: Maxime Fam on 03/05/22 1444 Last Action: Discontinued Levothyroxine Sodium (Levothyroxine Sodium) 175 Mcg Tablet, 175 MCG PO DAILY, (Reported) Discontinued Reason: No Longer Taking Entered as Reported by: DAVIS JON on 12/08/20 142 Last Action: Discontinued Levothyroxine Sodium (Levothyroxine) 112 Mcg Capsule, 112 MCG PO DAILY Discontinued Reason: No Longer Taking Prescribed by: EDWIN JAQUEZ on 09/30/21 1442 Last Action: Discontinued Methocarbamol (Methocarbamol) 750 Mg Tablet, 750 MG PO Q6-8HR Discontinued Reason: No Longer Taking Prescribed by: Maxime Fam on 03/05/22 1443 Last Action: Discontinued Trazodone HCl (Trazodone HCl) 150 Mg Tablet, 150 MG PO HS, (Reported) Discontinued Reason: No Longer Taking Entered as Reported by: DAVIS JON on 12/08/20 142 Last Action: Discontinued Review of Systems Review of Systems Constitutional: see HPI Past Frcrtxm-Tyunbm-Frfntx Hx Patient Social History Tobacco Use?: No Use of E-Cig and/or Vaping dev: No Use of E-Cig and/or Vaping Trav: Current Someday User Substance use?: No Alcohol Use?: No Immunizations Up To Date First/Initial COVID19 Vaccinat: 08/01/20 Second COVID19 Vaccination Yoav: 08/30/20 Third COVID19 Vaccination Date: 2020 Seasonal Allergies Seasonal Allergies: Yes Past Medical History Surgery/Hospitalization HX: pmh: pvd, cad, high chol, htn, hypothyroid sx: bypass in r leg, stents in r leg x5, l leg x1 Surgeries: Yes (APPY,HYST,PARTIAL HYSTERECTOMY, fem-pop, leg stents) Appendectomy, Bowel Surgery, Coronary Stent, Gallbladder, Hysterectomy Respiratory: No Asthma Cardiac: Yes Coronary Artery Disease, Heart Attack, High Cholesterol, Hypertension, Peripheral Vascular Neurological: Yes Headaches /Migraines 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 5.0oz. [id number]; 21.00 BMI Method:Stated General Appearance: No Apparent Distress, WD/WN HEENT: Normal ENT Inspection, Pharynx Normal Neck: Full Range of Motion, Normal Inspection, Non Tender, Supple Respiratory: Chest Non Tender, Lungs Clear, Normal Breath Sounds, No Accessory Muscle Use, No Respiratory Distress Cardiovascular: Regular Rate, Rhythm, No Murmur, Normal Peripheral Pulses Gastrointestinal: Normal Bowel Sounds, Non Tender, Soft Extremity: Normal Capillary Refill, Normal Inspection, Normal Range of Motion, Non Tender, No Calf Tenderness Neurologic/Psychiatric: Alert, Oriented x3, No Motor/Sensory Deficits Skin: Normal Color, Warm/Dry Progress/Results/Core Measures Results/Orders Lab Results Laboratory Tests Test 08/18/22 11:59 Range/Units White Blood Count 7.0 4.3-11.0 10^3/uL Red Blood Count 4.12 3.80-5.11 10^6/uL Hemoglobin 13.3 11.5-16.0 g/dL Hematocrit 40 35-52 % Mean Corpuscular Volume 97 80-99 fL Mean Corpuscular Hemoglobin 32 25-34 pg Mean Corpuscular Hemoglobin Concent 33 32-36 g/dL Red Cell Distribution Width 12.7 10.0-14.5 % Platelet Count 164 130-400 10^3/uL Mean Platelet Volume 11.8 9.0-12.2 fL Immature Granulocyte % (Auto) 0 % Neutrophils (%) (Auto) 64 42-75 % Lymphocytes (%) (Auto) 27 12-44 % Monocytes (%) (Auto) 7 0-12 % Eosinophils (%) (Auto) 2 0-10 % Basophils (%) (Auto) 1 0-10 % Neutrophils # (Auto) 4.5 1.8-7.8 10^3/uL Lymphocytes # (Auto) 1.9 1.0-4.0 10^3/uL Monocytes # (Auto) 0.5 0.0-1.0 10^3/uL Eosinophils # (Auto) 0.1 0.0-0.3 10^3/uL Basophils # (Auto) 0.1 0.0-0.1 10^3/uL Immature Granulocyte # (Auto) 0.0 0.0-0.1 10^3/uL Sodium Level 141 135-145 MMOL/L Potassium Level 3.9 3.6-5.0 MMOL/L Chloride Level 109 H 98-107 MMOL/L Carbon Dioxide Level 22 21-32 MMOL/L Anion Gap 10 5-14 MMOL/L Blood Urea Nitrogen 15 7-18 MG/DL Creatinine 1.17 0.60-1.30 MG/DL Estimat Glomerular Filtration Rate 52 BUN/Creatinine Ratio 13 Glucose Level 100 70-105 MG/DL Calcium Level 9.0 8.5-10.1 MG/DL Corrected Calcium 8.8 8.5-10.1 MG/DL Magnesium Level 2.1 1.6-2.4 MG/DL Total Bilirubin 0.5 0.1-1.0 MG/DL Aspartate Amino Transf (AST/SGOT) 14 5-34 U/L Alanine Aminotransferase (ALT/SGPT) 8 0-55 U/L Alkaline Phosphatase 116 40-136 U/L Troponin I < 0.028 <0.028 NG/ML Total Protein 6.9 6.4-8.2 GM/DL Albumin 4.3 3.2-4.5 GM/DL My Orders Orders - MARIELY SHAW DO Ekg Tracing (08/18/22 11:48) Cbc With Automated Diff (08/18/22 11:54) Magnesium (08/18/22 11:54) Chest 1 View, Ap/Pa Only (08/18/22 11:54) Comprehensive Metabolic Panel (08/18/22 11:54) Monitor-Rhythm Ecg Trace Only (08/18/22 11:54) Lipid Panel (08/19/22 06:00) Ed Iv/Invasive Line Start (08/18/22 11:54) Troponin I Jarret (08/18/22 11:54) Aspirin Chewable Tablet (Baby Aspirin Ch (08/18/22 12:00) Fentanyl Inj (Sublimaze Injection) (08/18/22 12:00) Ed Admission (Communication) (08/18/22 12:02) Medications Given in ED Current Medications Medications Dose Ordered Sig/Misa Route Start Time Stop Time Status Last Admin Dose Admin Aspirin 324 mg ONCE ONCE PO 08/18/22 12:00 08/18/22 12:01 DC 08/18/22 12:04 324 MG Fentanyl Citrate 50 mcg ONCE ONCE IVP 08/18/22 12:00 08/18/22 12:01 DC 08/18/22 12:03 50 MCG Vital Signs/I&O 08/18/22 11:49 Temp 36.3 Pulse 101 Resp 16 B/P (MAP) 131/107 (115) Blood Pressure Mean: 115 Comment Sinus tachycardia 110 bpm. Normal intervals. Normal axis. Mild ST depressions in V3 through V6. No T wave abnormalities. No ectopy. No STEMI. Departure Communication (Admissions) 1155: Spoke to Dr Flores, requests keep patient NPO. 1210: Patient admitted to Dr Loyd in stable condition. CXR negative on my independent review. EKG with mild depressions. Trop negative. Impression Primary Impression: Unstable angina Disposition: ADMITTED INPATIENT Condition: Stable Departure-Patient Inst. Referrals: JACLYN KONG DO (PCP/Family) Primary Care Physician MARIELY SHAW DO August 18, 2022 11:54
[2022-08-18] MEDS ORDERED: ASPIRIN 81 MG CHEW (CHILDREN'S ASA) PO ONE (12:00)
[2022-08-18] MEDS ORDERED: fentaNYL INJ 100 MCG/2 ML AMP IVP ONE (12:00)
--- NOTE | 2022-08-18 12:00 | Cardiology Stress Test Report ---
Stress Test Report Date of Procedure/Referring: Date of Procedure: August 18, 2022 PCP Jaclyn De Oliveira DO Admitting Physician Admitting Physician: Attending Physician: Indications: CP Baseline Heart Rate: 98 Baseline Blood Pressure: Blood Pressure Systolic: 131 Blood Pressure Diastolic: 107 Baseline EKG: Baseline EKG: NSR Summary/Conclusion: Patient was able to exercise for 3 minutes on standard Yovany protocol, had EKG changes with [address] depression in lead II, III and aVF, V4, V5 and V6. Continue to have chest pain in recovery, became more of horizontal ST depression 1 mm in lead II, III and aVF. Given 2 sublingual nitroglycerin, continue to have active chest pain. Conclusion Poor exercise tolerance for 3 minutes on standard Yovany protocol achieving 92% of maximal expected heart rate Hypertensive response to exercise with peak blood pressure 197/84 return to baseline during recovery Abnormal exercise EKG stress test with ST depression in lead II, III and aVF, V4 and V5 suggestive of ischemia Copy Copies To 1: JACLYN DE OLIVEIRA BASHAR J MD August 18, 2022 12:00
[2022-08-18 12:04] LABS: BASOPHILS # (AUTO) 0.1 10^3/uL (0.0-0.1); BASOPHILS % (AUTO) 1 % (0-10); EOSINOPHILS # (AUTO) 0.1 10^3/uL (0.0-0.3); EOSINOPHILS % (AUTO) 2 % (0-10); HEMATOCRIT 40 % (35-52); HEMOGLOBIN 13.3 g/dL (11.5-16.0); LYMPHOCYTES # (AUTO) 1.9 10^3/uL (1.0-4.0); LYMPHOCYTES % (AUTO) 27 % (12-44); MEAN CORPUSCULAR HEMOGLOBIN 32 pg (25-34); MEAN CORPUSCULAR HGB CONC 33 g/dL (32-36); MEAN CORPUSCULAR VOLUME 97 fL (80-99); MEAN PLATELET VOLUME 11.8 fL (9.0-12.2); MONOCYTES # (AUTO) 0.5 10^3/uL (0.0-1.0); MONOCYTES % (AUTO) 7 % (0-12); NEUTROPHILS # (AUTO) 4.5 10^3/uL (1.8-7.8); NEUTROPHILS % (AUTO) 64 % (42-75); PLATELET COUNT 164 10^3/uL (130-400)
--- NOTE | 2022-08-18 12:19 | Diagnostic Imaging Report ---
CLINICAL INDICATION: Patient with chest pain. EXAM: Portable chest x-ray upright view. COMPARISON: Chest x-ray dated 01/19/2022. FINDINGS: Lungs/pleura: Lungs are clear. There is no pneumothorax. There is no pleural effusion. Mediastinum: Unremarkable. Pulmonary vasculature: Unremarkable. Heart: Unremarkable. Bones/extrathoracic soft tissue: There are hypertrophic spurs involving the thoracic spine. IMPRESSION: There is no radiographic evidence of acute cardiopulmonary process. Dictated by: Dictated on workstation # [id number]
--- NOTE | 2022-08-18 12:24 | Consultation-Cardiology ---
HPI-Cardiology Cardiology Consultation Date of Consultation 08/18/22 Date of Admission Time Seen by Provider: 15:39 Indication: Chest pain HPI Patient is a 62 y/o female with history of mild to moderate nonobstructive CAD per [facility] done in 2006, hx of right coronary artery spasm, HTN, HLP. Has been having intermittent episodes of chest pain with exertion for the past 2-3 months. Associated dyspnea and dizziness at times. Denies any syncope. EKG stress test ordered by PCP and done earlier today. Patient developed chest pain while on treadmill with ST depression suggestive of ischemia, was given SL nitro with relief of symptoms. Patient instructed to follow up in our office tomorrow morning, or to go to ER with any further chest pain. Patient was not home long before she began developing chest pain and returning to ER. Home Medications & Allergies Allergies: Coded Allergies: morphine (Unverified Allergy, Mild, VISUAL DISTURB, 10/06/08) tetracaine (Unverified Allergy, Mild, RASH, 10/09/08) tetracycline (Verified Allergy, Mild, HIVES, 10/26/06) nitroglycerin (Verified Allergy, Unknown, NAUSEA, 05/27/17) meperidine (Verified Adverse Reaction, Unknown, NAUSEA AND VOMITING, 10/26/06) Home Medication List Reviewed: Yes KXA-Mtskjs-Wgikjk Hx Patient Social History Marital Status: single Employed/Student: unemployed Smoking Status: Current Everyday Smoker Type Used: Cigarettes 2nd Hand Smoke Exposure: Yes Recent Hopitalizations: No Alcohol Use?: No Immunizations Up To Date Date of Pneumonia Vaccine: Dec 29, 2011 Past Medical History CAD, HTN, HLP, PVD Family Medical History Significant Family History: Heart Disease, CAD Over 55 Years Old Review of Systems-General Review of Systems Constitutional: see HPI EENTM: see HPI, no symptoms reported Respiratory: see HPI, dyspnea on exertion Cardiovascular: see HPI, chest pain; No edema; Hx of Intervention; No syncope Gastrointestinal: no symptoms reported, see HPI Genitourinary: see HPI Musculoskeletal: no symptoms reported, see HPI Skin: no symptoms reported, see HPI Psychiatric/Neurological: Anxiety Reviewed Test Results Reviewed Test Results Lab Laboratory Tests 08/18/22 11:59: White Blood Count 7.0, Red Blood Count 4.12, Hemoglobin 13.3, Hematocrit 40, Mean Corpuscular Volume 97, Mean Corpuscular Hemoglobin 32, Mean Corpuscular Hemoglobin Concent 33, Red Cell Distribution Width 12.7, Platelet Count 164, Mean Platelet Volume 11.8, Immature Granulocyte % (Auto) 0, Neutrophils (%) (Auto) 64, Lymphocytes (%) (Auto) 27, Monocytes (%) (Auto) 7, Eosinophils (%) (Auto) 2, Basophils (%) (Auto) 1, Neutrophils # (Auto) 4.5, Lymphocytes # (Auto) 1.9, Monocytes # (Auto) 0.5, Eosinophils # (Auto) 0.1, Basophils # (Auto) 0.1, Immature Granulocyte # (Auto) 0.0 Physical Exam Physical Exam Vital Signs Vital Signs - First Documented 08/18/22 08/18/22 08/18/22 11:49 13:15 13:16 Temp 36.3 Pulse 101 Resp 16 B/P (MAP) 131/107 (115) Pulse Ox 95 O2 Delivery Room Air Capillary Refill : Less Than 3 Seconds Height, Weight, BMI Height: 5'6.00" Weight: 161lbs. 5.0oz. 73.363120lx; 21.00 BMI Method:Stated General Appearance: No Apparent Distress, WD/WN HEENT: Normal ENT Inspection, Pharynx Normal Neck: Full Range of Motion, Normal Inspection, Non Tender, Supple Respiratory: Chest Non Tender, Lungs Clear, Normal Breath Sounds, No Accessory Muscle Use, No Respiratory Distress Cardiovascular: Regular Rate, Rhythm, No Murmur, Normal Peripheral Pulses Gastrointestinal: Normal Bowel Sounds, Non Tender, Soft Extremity: Normal Capillary Refill, Normal Inspection, Normal Range of Motion, Non Tender, No Calf Tenderness Neurologic/Psychiatric: Alert, Oriented x3, No Motor/Sensory Deficits Skin: Normal Color, Warm/Dry A/P-Cardiology Admission Diagnosis Chest pain CAD PVD HTN Assessment/Plan Chest pain, resembling unstable angina. Unstable angina Was given SL nitro x 2 during stress test with relief of her symptoms, EKG during stress returned to baseline. Patient presented to ER approx 30-45min later with return of chest pain. Troponin pending. EKG showing some ST depression. Abnormal stress test done 08/18/22 showing patient was able to exercise for 3 minutes on standard Yovany protocol, had EKG changes with [address] depression in lead II, III and aVF, V4, V5 and V6. Continue to have chest pain in recovery, became more of horizontal ST depression 1 mm in lead II, III and a VF. Given 2 sublingual nitroglycerin. Will proceed with cardiac catheterization Coronary artery disease- cardiac catheterization done in 2006 showing coronary spasm in the RCA with mild irregularity in the prox LM with mild coronary spasm. Proximal LAD with 30-40% stenosis, otherwise nonobstructive disease, EF 60%. Underwent stress test with Dr. Morelos in 2020 showing no ischemia or infact. Patient with abnormal stress test earlier today as discussed above, will proceed with [facility] for further evaluation HTN, restart home blood pressure medications and continue to monitor. HLP, has been maintained on statin as outpatient. I will evaluate lipid profile. Peripheral vascular disease, history of bypass grafting to RLE by Dr. Krishna. Patient reported multiple intervention on her lower extremity especially her iliac arteries with stenting and thrombectomy in the past. Reporting increasing claudication pain recently. Will plan to evaluate ABIs as outpatient. Tobaccoism, patient is a secondhand smoker. Educated on the importance of smoking cessation. Thank you for allowing us to participate in the management of Ms. Montesinos. This is Anne Kaba PA-C, as a scribe for DR. Flores. Patient was seen and evaluated with Anne, I interviewed and examined the patient and discussed the management plan, agree with the current scribed note Made few modification using Italic font Patient was seen initially in the stress lab with active chest pain, given sublingual nitroglycerin, had EKG changes after short exercise., Chest pains improved significantly Reporting that she has been having episodes of chest pain after exertion lasting for about 2 hours Patient was sent home and she returned to the emergency room with 10/10 active chest pain, currently it is 2/10 after receiving multiple medication in the emergency room Patient had extensive peripheral arterial disease with multiple intervention and probably femorofemoral bypass surgery done by Dr. Krishna I am planning to proceed with cardiac catheterization possible PTCA. Evaluate lipid profile, maximize medical treatment. ANNE KNIGHT August 18, 2022 12:24 SHAHEED FLORES MD August 18, 2022 15:39
[2022-08-18 12:26] LABS: ALANINE AMINOTRANSFERASE 8 U/L (0-55); ALBUMIN 4.3 GM/DL (3.2-4.5); ALKALINE PHOSPHATASE 116 U/L (40-136); BILIRUBIN,TOTAL 0.5 MG/DL (0.1-1.0); BUN/CREATININE RATIO 13; CARBON DIOXIDE 22 MMOL/L (21-32); CHLORIDE 109 MMOL/L (98-107); CREATININE SERUM 1.17 MG/DL (0.60-1.30); GFR ESTIMATED 52; GLUCOSE 100 MG/DL (70-105); MAGNESIUM 2.1 MG/DL (1.6-2.4); POTASSIUM 3.9 MMOL/L (3.6-5.0); SODIUM 141 MMOL/L (135-145); TOTAL PROTEIN 6.9 GM/DL (6.4-8.2)
--- NOTE | 2022-08-18 12:51 | History & Physical-Hospitalist ---
History of Present Illness HPI/Chief Complaint Chief complaint: Chest pain HPI: This is a 62-year-old female who presented to the ER with chest pain. She just completed her stress test that was abnormal but began having some chest pain she presented to the ER. Due to concerning symptoms and risk factors she will be taken to cardiac catheterization. Source: patient Exam Limitations: no limitations Date Seen 08/18/22 Time Seen by a Provider: 12:00 Attending Physician Manuelito De Oliveira DO PCP Admitting Physician: Attending Physician: Referring Physician Date of Admission Home Medications & Allergies Home Medications Reviewed patient Home Medication Reconciliation performed by pharmacy medication reconciliations civil laboratory technician and/or nursing. Patients Allergies have been reviewed. Allergies Allergies Coded Allergies morphine (Unverified Allergy, Mild, VISUAL DISTURB, 10/06/08) tetracaine (Unverified Allergy, Mild, RASH, 10/09/08) tetracycline (Verified Allergy, Mild, HIVES, 10/26/06) nitroglycerin (Verified Allergy, Unknown, NAUSEA, 05/27/17) meperidine (Verified Adverse Reaction, Unknown, NAUSEA AND VOMITING, 10/26/06) Past Qqzztlx-Qpdggi-Rryxqq Hx Patient Social History Marrital Status: single Employed/Student: unemployed Tobacco Use?: No Smoking Status: Current Everyday Smoker Use of E-Cig and/or Vaping dev: No Use of E-Cig and/or Vaping Trav: Current Someday User Substance use?: No Alcohol Use?: No Immunizations Up To Date First/Initial COVID19 Vaccinat: 08/01/20 Second COVID19 Vaccination Yoav: 08/30/20 Tetanus Booster (TDap): Unknown Date of Pneumonia Vaccine: Dec 29, 2011 Seasonal Allergies Seasonal Allergies: Yes Current Status Advance Directives: No Primary Language: Cuban Preferred Spoken Language: Cuban Past Medical History Surgeries: Appendectomy, Bowel Surgery, Coronary Stent, Gallbladder, Hysterectomy Asthma Coronary Artery Disease, Heart Attack, High Cholesterol, Hypertension, Peripheral Vascular 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 5.0oz. 73.428168le; 21.00 BMI Method:Stated General Appearance: No Apparent Distress Eyes: Right Eye Normal Inspection, Right Eye PERRL HEENT: PERRL/EOMI, TMs Normal, Normal ENT Inspection, Pharynx Normal, Moist Mucous Membranes Neck: Full Range of Motion, Normal Inspection, Non Tender Respiratory: Chest Non Tender, Lungs Clear, Normal Breath Sounds, No Accessory Muscle Use, No Respiratory Distress Cardiovascular: Regular Rate, Rhythm, No Edema, No Gallop, No JVD, No Murmur, Normal Peripheral Pulses Gastrointestinal: Normal Bowel Sounds, No Organomegaly, No Pulsatile Mass, Non Tender, Soft Back: Normal Inspection, No CVA Tenderness, No Vertebral Tenderness Extremity: Normal Capillary Refill, Normal Inspection, Normal Range of Motion, Non Tender, No Calf Tenderness, No Pedal Edema Neurologic/Psychiatric: Alert, Oriented x3, No Motor/Sensory Deficits, Normal Mood/Affect Skin: Normal Color, Warm/Dry Lymphatic: No Adenopathy Results Results/Procedures Labs Laboratory Tests 08/18/22 11:59 Patient resulted labs reviewed. Assessment/Plan Admission Diagnosis Assessment: Chest pain Abnormal stress test Smoker Plan: Cardiac catheterization today Admission Status: Observation EBER LOYD DO August 18, 2022 12:51
[2022-08-18] MEDS ORDERED: NS IV 1000 ML 1,000 ML ONE (13:32)
[2022-08-18] MEDS ORDERED: HEParin (CATH LAB) 2,000 ML IV ONE (13:32)
[2022-08-18] MEDS ORDERED: LIDOCAINE 1% INJ 20 ML VIAL ONE (13:32)
[2022-08-18] MEDS ORDERED: diphenhydrAMINE 25 MG TAB (BENADRYL) PO PRN (13:45)
[2022-08-18] MEDS ORDERED: MILK OF MAGNESIA 400 MG/5 ML 30 ML UDC PO PRN (13:45)
[2022-08-18] MEDS ORDERED: polyethylene glycoL POWDER 17 GM (MIRALAX) PACK PO PRN (13:45)
[2022-08-18] MEDS ORDERED: NS IV 1000 ML 1,000 ML IV SCH (13:45)
[2022-08-18] MEDS ORDERED: LACTULOSE SYRUP 10GM/15ML (ENULOSE) 30ML UDC PO PRN (13:45)
[2022-08-18] MEDS ORDERED: PATIENT MAY USE OWN MEDS, ALL PO SCH (13:45)
[2022-08-18] MEDS ORDERED: ANTACID SUSP 30 ML UDC (MYLANTA) PO PRN (13:45)
[2022-08-18] MEDS ORDERED: diphenhydrAMINE 50 MG/ML INJ (BENADRYL) IVP PRN (13:45)
[2022-08-18] MEDS ORDERED: MELATONIN 3 MG TABLET PO PRN (13:45)
[2022-08-18] MEDS ORDERED: ONDANSETRON 4 MG (ZOFRAN) ORAL DISSOLVE TAB PO PRN (13:45)
[2022-08-18] MEDS ORDERED: BISACODYL 10 MG SUPP (DULCOLAX) PR PRN (13:45)
[2022-08-18] MEDS ORDERED: CALCIUM CARBONATE 500 MG (TUMS) TAB.CHEW PO PRN (13:45)
[2022-08-18] MEDS ORDERED: RT-ALBUTEROL SULF 2.5 MG/3 ML PRE-MIX VIAL INH PRN (14:00)
[2022-08-18] MEDS: ONDANSETRON 4 MG/2 ML (SDV) Z0FRAN IV PRN ×2 (14:36→20:44)
[2022-08-18] MEDS: morphine INJ 4 MG/ML 1 ML (VIAL/SYRINGE) IV PRN ×2 (14:37→18:42)
[2022-08-18] MEDS: NS IV 1000 ML 1,000 ML IV SCH ×4 (14:59→22:20)
[2022-08-18] MEDS ORDERED: DULO60CA59 PO (15:11)
[2022-08-18] MEDS ORDERED: CHOL500050 PO (15:11)
[2022-08-18] MEDS ORDERED: LEVO150T6 PO (15:11)
[2022-08-18] MEDS ORDERED: TRAZ150T72 PO (15:11)
[2022-08-18] MEDS ORDERED: FLUT16SP22 NSEACH (15:11)
[2022-08-18] MEDS ORDERED: MIDAZOLAM 5 MG/5 ML (VERSED) VIAL ONE (15:27)
[2022-08-18] MEDS ORDERED: VERAPAMIL 5 MG/2 ML (CALAN) VIAL IV ONE (15:28)
[2022-08-18] MEDS ORDERED: fentaNYL INJ 100 MCG/2 ML AMP ONE (15:28)
[2022-08-18] MEDS ORDERED: NITRO DRIP 25000 MCG/D5W 250 ML IV ONE (15:29)
[2022-08-18] MEDS ORDERED: HEParin 1000 UNIT/ML (10ML VIAL) FOR BOLUS ONE (15:29)
--- NOTE | 2022-08-18 15:40 | Cardiac Procedure Note-CS/ASA ---
Pre-Procedure Note Pre-Op Procedure Note Date of Available H&P: August 18, 2022 Date H&P Reviewed: August 18, 2022 Time H&P Reviewed: 15:39 History & Physical: H&P Reviewed, Patient Examed, No changes noted Pre-Operative Diagnosis: Unstable angina Moderate Sedation PreProcedure Time 15:39 ASA Score 3 Airway Lungs Heart ASA score ASA 1: a normal healthy patient ASA 2: a patient with a mild systemic disease (mid diabetes, controlled hypertension, obesity ASA 3: a patient with a severe systemic disease that limits activity (angina, COPD, prior Myocardial infarction) ASA 4: a patient with an incapacitating disease that is a constant threat to life (CHF, renal failure) ASA 5: a moribund patient not expected to survive 24 hrs. (ruptured aneurysm) ASA 6: a declared brain- patient whose organs are being harvested. For emergent operations, add the letter E after the classification Mallampati Classification Grade 3 Sedation Plan Analgesia, Amnesia, Plan communicated to team members, Discussed options with patient/fam, Discussed risks with patient/fam The patient is an appropriate candidate to undergo the planned procedure, sedation, and anesthesia. The patient immediately re-assessed prior to indication. SHAHEED FOSTER MD August 18, 2022 15:39
--- NOTE | 2022-08-18 16:21 | Cardiac Cath Report ---
Cardiac Cath Report Physician (s)/Public Health Staff Nurse (s) Physician SHAHEED FOSTER MD Pre-Procedure Diagnosis Pre-Procedure Diagnosis: Unstable angina Post-Procedure Note Procedure Start Date: August 18, 2022 Name of Procedure: Left heart catheterization Left ventriculogram Abdominal aortogram with bilateral lower extremities runoff Aortic arch angiogram Findings/Procedure Note PROCEDURE NOTE: 62-year-old lady with history of coronary artery disease, coronary spasm, extensive peripheral arterial disease, aortoiliac bypass, multiple stents and multiple interventions on her peripheral arterial disease. Had a stress test earlier today and had nondiagnostic EKG changes persisted in recovery with active chest pain, patient went home and return to the emergency room with active chest pain and was admitted. On my evaluation she was still having an active chest pain, cardiac catheterization was advised. After explaining the procedure to the patient, all pros and cons were explained, all questions were answered. The patient signed the consent and then she was placed in the cardiac catheterization laboratory. Groin was prepped in SL fashion local anesthesia was used. Sheath placed in the right radial artery, [place] catheter was advanced to the left ventricular cavity, left ventriculogram was done, pullback LV to aorta was done, engage the right and left coronary system, angiogram was done then I pulled the catheter back and redirected in the abdominal and abdominal aorta and ascending aorta advanced exchange wire in the abdominal aorta and exchanged the cath and used a pigtail catheter placed in the abdominal aorta at the level of the renal arteries. I proceeded with abdominal aortogram with bilateral lower extremities runoff down to the trifurcation bilaterally. Then I pulled the pigtail catheter back and redirected in the ascending aorta and I placed it just at the level of the aortic arch and did aortic arch angiogram due to her extensive peripheral arterial disease that was reported. At the end of the procedure the sheath was removed. Vascular band was used FINDINGS: Hemodynamics LV 105/9, end-diastolic pressure of 9 Aorta 107/70 mean of 64 ANATOMY: Left Main is free of obstructive disease Left Anterior Descending has mild disease with no obstructive disease Left Circumflex is nondominant artery with no obstructive disease Right Coronary Artery is dominant artery with mild disease nonobstructive disease LV Gram was done showing normal left ventricular size, normal contractility, estimated ejection fraction 60% Aorta evaluation done on to state issues. Abdominal aortogram with bilateral lower extremities runoff. Abdominal aorta is normal in size, no dissection or aneurysm Bilateral renal arteries are normal, bilateral SMA and DOMINICK are normal Bilateral iliac artery appeared to have stents that were patent. SFA and popliteal artery are patent bilaterally and below the trifurcation 3 arteries are patent bilaterally with no significant obstructive disease in her peripheral arteries Aortic arch angiogram was done and it showed normal aortic arch, no dissection or aneurysm, normal brachiocephalic artery, left carotid and left subclavian arteries. CONCLUSION: Mild coronary artery disease with no obstructive disease with dominant right coronary system Normal left ventricular size, normal contractility, ejection fraction 60% Normal abdominal aorta and renal arteries Multiple stents in the iliac arteries bilaterally that are patent with excellent flow down to below the trifurcation bilaterally Normal aortic arch and great vessels of the neck DISCUSSION AND RECOMMENDATION: Patient was having recurrent chest pain and probably due to musculoskeletal pain or anxiety. Conservative management is recommended We will arrange for follow-up as an outpatient Anesthesia Type: Conscious Sedation Estimated blood loss (mL): 15 ml Contrast Amount: 60 ml Total Radiation Dose: 144 mGy Post-Procedure Diagnosis Post-operative diagnosis: Chest pain Claudication Peripheral arterial disease Anxiety SHAHEED FOSTER MD August 18, 2022 16:21
[2022-08-18] MEDS: SENNOSIDES 8.6 MG (SENOKOT) TAB PO SCH (20:14)
[2022-08-18] MEDS: DOCUSATE SODIUM 100 MG (COLACE) CAP PO SCH (20:14)
[2022-08-18] MEDS ORDERED: traZODone 150 MG (DESYREL) TABLET PO SCH (22:00)
[2022-08-18] MEDS: toPIRamate 25 MG (TOPAMAX) TAB PO SCH (22:16)
[2022-08-18] MEDS: ACETAMINOPHEN 325 MG TABLET PO PRN (23:33)
[2022-08-19 03:36] VITALS: BP 86/53
[2022-08-19] MEDS: NS IV 1000 ML 1,000 ML IV SCH ×2 (04:27→05:00)
[2022-08-19 05:05] VITALS: BP 93/56
[2022-08-19 05:10] LABS: BASOPHILS % (AUTO) 1 % (0-10); EOSINOPHILS # (AUTO) 0.1 10^3/uL (0.0-0.3); EOSINOPHILS % (AUTO) 2 % (0-10); HEMATOCRIT 32 % (35-52); HEMOGLOBIN 10.3 g/dL (11.5-16.0); LYMPHOCYTES # (AUTO) 1.4 10^3/uL (1.0-4.0); LYMPHOCYTES % (AUTO) 27 % (12-44); MEAN CORPUSCULAR HEMOGLOBIN 32 pg (25-34); MEAN CORPUSCULAR HGB CONC 32 g/dL (32-36); MEAN CORPUSCULAR VOLUME 99 fL (80-99); MEAN PLATELET VOLUME 12.7 fL (9.0-12.2); MONOCYTES # (AUTO) 0.4 10^3/uL (0.0-1.0); MONOCYTES % (AUTO) 7 % (0-12); NEUTROPHILS # (AUTO) 3.3 10^3/uL (1.8-7.8); NEUTROPHILS % (AUTO) 63 % (42-75); PLATELET COUNT 141 10^3/uL (130-400); WHITE BLOOD COUNT 5.2 10^3/uL (4.3-11.0)
[2022-08-19 05:19] LABS: POTASSIUM 3.8 MMOL/L (3.6-5.0)
[2022-08-19 05:20] LABS: CALCIUM 7.8 MG/DL (8.5-10.1)
[2022-08-19 05:21] LABS: TOTAL PROTEIN 4.8 GM/DL (6.4-8.2)
[2022-08-19 05:23] LABS: BILIRUBIN,TOTAL 0.3 MG/DL (0.1-1.0)
[2022-08-19 05:25] LABS: CREATININE SERUM 0.98 MG/DL (0.60-1.30)
[2022-08-19 08:00] VITALS: BP 99/66
[2022-08-19] MEDS: toPIRamate 25 MG (TOPAMAX) TAB PO SCH (08:25)
[2022-08-19] MEDS: ACETAMINOPHEN 325 MG TABLET PO PRN (08:25)
[2022-08-19] MEDS: DOCUSATE SODIUM 100 MG (COLACE) CAP PO SCH (08:26)
[2022-08-19] MEDS: SENNOSIDES 8.6 MG (SENOKOT) TAB PO SCH (08:26)
--- NOTE | 2022-08-19 08:38 | Cardiology Progress Note ---
Subjective Date Seen by Provider: Aug 19, 2022 Time Seen by Provider: 08:37 Subjective/Events-last exam Patient was seen at bedside, laying down comfortably. Denied any active chest pain today Review of Systems General: No Chills, No Night Sweats, No Fatigue, No Malaise, No Appetite, No Ot her HEENT: No Head Aches, No Visual Changes, No Eye Pain, No Ear Pain, No Dysp hasia, No Sinus Congestion, No Post Nasal Drip, No Sore Throat, No Other Pulmonary: No Dyspnea, No Cough, No Pleuritic Chest Pain, No Other Cardiovascular: No: Chest Pain, Palpitations, Orthopnea, Paroxysmal Noc. Dyspnea, Edema, Lt Headedness, Other Objective-Cardiology Exam Last Set of Vital Signs Vital Signs 08/18/22 08/19/22 08/19/22 08/19/22 23:53 03:36 05:05 07:14 Temp 36.0 Pulse 60 Resp 13 B/P (MAP) 93/56 (68) Pulse Ox 98 O2 Delivery Room Air I&O Intake and Output 08/19/22 00:00 Intake Total 1950 ml Output Total 800 ml Balance 1150 ml Intake Oral 950 ml IV Total 1000 ml Output Urine Total 800 ml # Voids 2 Daily Weight Change No General: Alert, Oriented X3, Cooperative HEENT: Atraumatic, PERRLA Neck: Supple, No JVD, No Thyromegaly Lungs: Clear to Auscultation, Normal Air Movement Heart: Regular Rate, Normal S1, Normal S2, No Murmurs Abdomen: Normal Bowel Sounds, Soft, No Tenderness, No Hepatosplenomegaly, No Masses Extremities: No Clubbing, No Cyanosis, No Edema, Normal Pulses, No Tenderness/Swelling Skin: No Rashes, No Breakdown, No Significant Lesion Neuro: Normal Gait, Normal Speech, Strength at 5/5 X4 Ext, Normal Tone, Sensation Intact Psych/Mental Status: Mental Status NL, Mood NL Results Lab Laboratory Tests 08/18/22 11:59 08/19/22 04:49 A/P-Cardiology Admission Diagnosis Chest pain CAD PVD HTN Assessment/Plan Chest pain, resembling unstable angina. Noncardiac pain Cardiac catheterization was carried out on August 18, 2022 showing mild coronary artery disease nonobstructive disease Probably secondary to hiatal hernia Elevation in liver enzymes, patient has history of cholecystectomy Will evaluate hepatic ultrasound Managed by primary care team Coronary artery disease- cardiac catheterization done in 2006 showing coronary spasm in the RCA with mild irregularity in the prox LM with mild coronary spasm. Proximal LAD with 30-40% stenosis, otherwise nonobstructive disease, EF 60%. Underwent stress test with Dr. Morelos in 2020 showing no ischemia or infact. Patient with abnormal stress test earlier today as discussed above, will proceed with [facility] for further evaluation HTN, restart home blood pressure medications and continue to monitor. HLP, has been maintained on statin as outpatient. I will evaluate lipid profile. Peripheral vascular disease, history of bypass grafting to RLE by Dr. Krishna. Patient reported multiple intervention on her lower extremity especially her iliac arteries with stenting and thrombectomy in the past. Reporting increasing claudication pain recently. Peripheral angiogram done on August 18, 2022 showing patent iliac stents bilaterally, good flow down to the mid trifurcation Tobaccoism, patient is a secondhand smoker. Educated on the importance of smoking cessation. Okay for discharge from cardiology standpoint, follow-up as an outpatient in 2 weeks SHAHEED FOSTER MD Aug 19, 2022 08:38
[2022-08-19] MEDS: ONDANSETRON 4 MG/2 ML (SDV) Z0FRAN IV PRN (08:53)
[2022-08-19] MEDS ORDERED: PANTOPRAZOLE 40 MG (PROTONIX) TAB PO SCH (09:00)
[2022-08-19] MEDS ORDERED: ASPIRIN E.C. 81 MG (ECOTRIN) TAB PO SCH ×2 (09:00)
[2022-08-19] MEDS ORDERED: CLOPIDOGREL 75 MG (PLAVIX) TABLET PO SCH (09:00)
--- NOTE | 2022-08-19 10:53 | Progress Note - Hospitalist ---
Subjective HPI/CC On Admission Date Seen by Provider: Aug 19, 2022 Chief complaint: Chest pain HPI: This is a 62-year-old female who presented to the ER with chest pain. She just completed her stress test that was abnormal but began having some chest pain she presented to the ER. Due to concerning symptoms and risk factors she will be taken to cardiac catheterization. Objective Exam Vital Signs Vital Signs Date Time Temp Pulse Resp B/P (MAP) Pulse Ox O2 Delivery O2 Flow Rate FiO2 08/19/22 08:30 Room Air 08/19/22 08:00 35.7 64 14 99/66 (77) 95 Capillary Refill : Less Than 3 Seconds Results/Procedures Lab Laboratory Tests 08/19/22 04:49 Patient resulted labs reviewed. EBER LOYD DO Aug 19, 2022 10:53
--- NOTE | 2022-08-19 10:56 | Diagnostic Imaging Report ---
PROCEDURE: US Hepatic (Liver). TECHNIQUE: Multiple real-time grayscale images were obtained over the right upper quadrant in various projections. INDICATION: Elevated liver enzymes. FINDINGS: Liver parenchyma is homogeneous with normal echotexture. Portal vein is patent with hepatopetal flow. The gallbladder is surgically absent. The common duct is not dilated. The visualized portions of the pancreas are unremarkable. Aorta and IVC are normal. Right kidney measures 9.8 cm in length and appears normal. There is no ascites. IMPRESSION: Surgically absent gallbladder. Right upper quadrant ultrasound is otherwise unremarkable. Dictated by: Dictated on workstation # [id number]
[2022-08-19 12:00] VITALS: BP 117/72
--- NOTE | 2022-08-19 12:05 | Discharge Summary ---
Discharge Summary Hospital Course Was the Problem List Reviewed?: Yes Problems/Dx: (1) Unstable angina Status: Acute (2) Migraine Status: Acute (3) Constipation Status: Acute Hospital Course Date of Admission: August 18, 2022 at 13:13 Admission Diagnosis : Family Physician/Provider: Manuelito De Oliveira DO Date of Discharge: 08/19/22 Discharge Diagnosis: [ ] Hospital Course: Patient had a short hospital course after she was admitted for anginal type symptoms she underwent cardiac catheterization which required no intervention and she required IV fluids due to mild hypotension and she was able to regain consumption of normal diet she was discharged in improved condition. Labs and Pending Lab Test: Laboratory Tests 08/19/22 04:49: White Blood Count 5.2, Red Blood Count 3.26L, Hemoglobin 10.3#L, Hematocrit 32L, Mean Corpuscular Volume 99, Mean Corpuscular Hemoglobin 32, Mean Corpuscular Hemoglobin Concent 32, Red Cell Distribution Width 12.8, Platelet Count 141, Mean Platelet Volume 12.7H, Immature Granulocyte % (Auto) 0, Neutrophils (%) (Auto) 63, Lymphocytes (%) (Auto) 27, Monocytes (%) (Auto) 7, Eosinophils (%) (Auto) 2, Basophils (%) (Auto) 1, Neutrophils # (Auto) 3.3, Lymphocytes # (Auto) 1.4, Monocytes # (Auto) 0.4, Eosinophils # (Auto) 0.1, Basophils # (Auto) 0.0, Immature Granulocyte # (Auto) 0.0, Sodium Level 140, Potassium Level 3.8, Chloride Level 115H, Carbon Dioxide Level 19L, Anion Gap 6, Blood Urea Nitrogen 12, Creatinine 0.98, Estimat Glomerular Filtration Rate 65, BUN/Creatinine Ratio 12, Glucose Level 104, Calcium Level 7.8L, Corrected Calcium 8.6, Total Bilirubin 0.3, Aspartate Amino Transf (AST/SGOT) 124H, Alanine Aminotransferase (ALT/SGPT) 116H, Alkaline Phosphatase 106, Total Protein 4.8L, Albumin 3.0L, Triglycerides Level 125, Cholesterol Level 133, LDL Cholesterol Direct 86, VLDL Cholesterol 25, HDL Cholesterol 32L Home Meds Active Reported Vitamin D3 (Cholecalciferol (Vitamin D3)) 125 Mcg (5000 Unit) Capsule 125 Mcg PO DAILY Trazodone HCl 150 Mg Tablet 225 Mg PO HS TAKES 1 & (150MG) TABS Duloxetine HCl 60 Mg Capsule.dr 60 Mg PO DAILY Fluticasone Propionate 50 Mcg/Actuation Cerulean.susp 2 Sprays NSEACH DAILY PRN Levothyroxine Sodium 150 Mcg Tablet 150 Mcg PO DAILY Topiramate 50 Mg Tablet 50 Mg PO BID Assessment/Pt Instructions PCP in 1 week Discharge Planning: <30 minutes discharge planning Discharge Instructions Discharge Diet: No Restrictions Discharge Physical Examination Vital Signs Vital Signs Date Time Temp Pulse Resp B/P (MAP) Pulse Ox O2 Delivery O2 Flow Rate FiO2 08/19/22 08:30 Room Air 08/19/22 08:00 35.7 64 14 99/66 (59) 95 General Appearance: No Apparent Distress, WD/WN, Chronically ill Allergies: Coded Allergies: morphine (Unverified Allergy, Mild, VISUAL DISTURB, 10/06/08) tetracaine (Unverified Allergy, Mild, RASH, 10/09/08) tetracycline (Verified Allergy, Mild, HIVES, 10/26/06) nitroglycerin (Verified Allergy, Unknown, NAUSEA, 05/27/17) meperidine (Verified Adverse Reaction, Unknown, NAUSEA AND VOMITING, 10/26/06) Discharge Summary Date of Admission August 18, 2022 at 13:13 Date of Discharge Discharge Date: Aug 19, 2022 Admission Diagnosis Assessment: Chest pain Abnormal stress test Smoker Plan: Cardiac catheterization today EBER LOYD DO Aug 19, 2022 12:05
[2022-08-19 13:28] VITALS: BP 117/72
[2022-08-19] MEDS ORDERED: traZODone 150 MG (DESYREL) TABLET PO SCH (21:00)
== END 2022-08-19 13:40 | disposition home or self-care (01) ==
LOC: EDUNIT# 11:45 → ER 11:47 → INTOOBSV 13:13 → CSD 13:13
PROVIDERS: ADMIT Internal Medicine; ATTEND Internal Medicine
DX: I25.110 Atherosclerotic heart disease of native coronary artery with unstable angina pectoris (principal); I73.9 Peripheral vascular disease, unspecified; R94.39 Abnormal result of other cardiovascular function study; I10 Essential (primary) hypertension; F41.9 Anxiety disorder, unspecified; F17.210 Nicotine dependence, cigarettes, uncomplicated; Z90.49 Acquired absence of other specified parts of digestive tract; Z79.899 Other long term (current) drug therapy; Z98.890 Other specified postprocedural states
CPT/HCPCS: 36221; 71045; 75630; 76705; 80053 ×2; 80061; 83735; 84484; 85025 ×2; 93005; 93041; 93458; 96361; 96375; 96376 ×2; 99284; C1769; C1894; G0378; 36415

== ENCOUNTER → 2022-08-18 | Outpatient (CLI) | payer MEDICARE, MEDICAID ==
[~2022-08-18] MED LIST changes: +DULO60CA59 PO; +LEVO150T6 PO
== END ==
LOC: CARD 10:15
PROVIDERS: ATTEND Pediatrics
DX: I25.118 Atherosclerotic heart disease of native coronary artery with other forms of angina pectoris (principal)
CPT/HCPCS: 93017

== ENCOUNTER 2022-11-08 11:14 | Emergency (ER) | payer MEDICARE, MEDICAID ==
[~2022-11-08] VITALS: Ht 167 cm; Wt 58.9 kg
[~2022-11-08 11:14] MED LIST changes: +DULO60CA59 PO; +LEVO150T6 PO
[2022-11-08] MEDS ORDERED: fentaNYL INJECTION 100 MCG/2 ML VIAL IVP STA ×2 (11:53→12:57)
[2022-11-08] MEDS ORDERED: ONDANSETRON 4 MG ORAL DISSOLVE TABLET SL STA (11:53)
[2022-11-08] MEDS ORDERED: NS IV 1000 ML 1,000 ML IV STA (11:53)
[2022-11-08] MEDS ORDERED: ANTACID SUSPENSION 30 ML UDC PO ONE (12:00)
[2022-11-08] MEDS ORDERED: ONDANSETRON INJECTION 4 MG/2 ML (SDV) IVP ONE ×2 (12:00→13:45)
[2022-11-08] MEDS ORDERED: LIDOCAINE 2% VISCOUS 15 ML UDC PO ONE (12:00)
--- NOTE | 2022-11-08 12:00 | ED Abdominal Pain ---
General Chief Complaint: Abdominal/GI Problems Stated Complaint: UPPER ABD PAIN Nursing Triage Note: ARRIVED VIA AMB FROM HOME. COMPLAINS OF BILAT UPPER ABD PAIN SINCE AUGUST BUT WORSE SINCE TUE. PT IS ALSO HAVING N/D. Source of Information: Patient Exam Limitations: No Limitations History of Present Illness Date Seen by Provider: Nov 08, 2022 Time Seen by Provider: 11:39 Initial Comments Here with report of nausea with significant epigastric abdominal pain that has been going on since August but much worse since the last 4 days. Denies vomiting. States that she had some coffee-ground stool. Does have history of gallbladder disease and is status postcholecystectomy and also has history of diverticulitis and is status post partial colectomy. Reports having a heart cath that apparently was okay heart catheter report reviewed from August 19 shows no significant obstructive disease as noted in progress section. Patient states the pain is quite significant. She is due to have a scope on and she is not taking any pain medicines currently. She called her GI doctor's office who said that she should come to the nearest ER given the amount of pain that she is having. Denies fever or chills. Denies upper respiratory symptoms. This is all similar to but worse than her typical pain. She does report that she is not eating well because it markedly increases her pain but is trying to keep fluids down. Denies dysuria. Timing/Duration: 4-5 Days, Getting Worse Severity/Quality: Moderate, Severe, Burning Location: LUQ, Epigastric Radiation: No Radiation Activities at Onset: None Modifying Factors: Worsens With Eating Associated Symptoms: No Back Pain, No Chest Pain, No Fever/Chills; Nausea/Vomiting, Shortness of Air (Chronic); No Weakness Allergies and Home Medications Allergies Coded Allergies: morphine (Unverified Allergy, Mild, VISUAL DISTURB, 10/06/08) tetracaine (Unverified Allergy, Mild, RASH, 10/09/08) tetracycline (Verified Allergy, Mild, HIVES, 10/26/06) nitroglycerin (Verified Allergy, Unknown, NAUSEA, 05/27/17) meperidine (Verified Adverse Reaction, Unknown, NAUSEA AND VOMITING, 10/26/06) Patient Home Medication List Home Medication List Reviewed: Yes Cholecalciferol (Vitamin D3) (Vitamin D3) 125 Mcg (5000 Unit) Capsule, 125 MCG PO DAILY, (Reported) Entered as Reported by: JACLYN MIRZA on 08/18/221510 Duloxetine HCl (Duloxetine HCl) 60 Mg Capsule.dr, 60 MG PO DAILY, (Reported) Entered as Reported by: JACLYN BLUE on 08/18/221510 Fluticasone Propionate (Fluticasone Propionate) 50 Mcg/Actuation [place].susp, 2 SPRAYS NSEACH DAILY PRN for CONGESTION, (Reported) Entered as Reported by: JACLYN BLUE on 08/18/221510 Levothyroxine Sodium (Levothyroxine Sodium) 150 Mcg Tablet, 150 MCG PO DAILY, (Reported) Entered as Reported by: JACLYN BLUE on 08/18/221510 Topiramate (Topiramate) 50 Mg Tablet, 50 MG PO BID, (Reported) Entered as Reported by: DAVIS JON on 12/08/20 142 Trazodone HCl (Trazodone HCl) 150 Mg Tablet, 225 MG PO HS, (Reported) Entered as Reported by: JACLYN BLUE on 08/18/221510 Review of Systems Review of Systems Constitutional: see HPI EENTM: See HPI Respiratory: See HPI Cardiovascular: See HPI Gastrointestinal: See HPI Genitourinary: No Symptoms Reported Musculoskeletal: no symptoms reported Past Qgoxezs-Xwaqcn-Yomdff Hx Patient Social History Tobacco Use?: Yes Smoking Status: Current Everyday Smoker Substance use?: No Alcohol Use?: No Immunizations Up To Date First/Initial COVID19 Vaccinat: 08/01/20 Second COVID19 Vaccination Yoav: 08/30/20 Third COVID19 Vaccination Date: 2020 Seasonal Allergies Seasonal Allergies: Yes Past Medical History Surgery/Hospitalization HX: pmh: pvd, cad, high chol, htn, hypothyroid sx: bypass in r leg, stents in r leg x5, l leg x1 Surgeries: Yes (APPY,HYST,PARTIAL HYSTERECTOMY, fem-pop, leg stents) Appendectomy, Bowel Surgery, Coronary Stent, Gallbladder, Hysterectomy Respiratory: No Asthma Cardiac: Yes Coronary Artery Disease, Heart Attack, High Cholesterol, Hypertension, Peripheral Vascular Neurological: Yes Headaches /Migraines Reproductive Disorders: Yes [employer] History: Hysterectomy Genitourinary: No Gastrointestinal: Yes Gastroesophageal Reflux, Diverticulosis Musculoskeletal: Yes Arthritis Endocrine: Yes Hypothyroidsim HEENT: No Cancer: No Psychosocial: Yes Anxiety, Depression Integumentary: No Blood Disorders: No Family Medical History Reviewed Nursing Family Hx Heart Disease, CAD Over 55 Years Old Physical Exam Vital Signs Vital Signs - First Documented 11/08/22 11:36 Temp 36.6 Pulse 56 Resp 16 B/P (MAP) 91/62 (72) Pulse Ox 97 O2 Delivery Room Air Capillary Refill : Less Than 3 Seconds Height/Weight/BMI Height: 5'6.00" Weight: 161lbs. 5.0oz. [id number]; 21.00 BMI Method:Stated General Appearance: mild distress, thin HEENT: PERRL/EOMI, pharynx normal Neck: full range of motion, supple Respiratory: lungs clear, normal breath sounds Cardiovascular: no murmur, tachycardia Gastrointestinal: soft; No guarding, No rebound; tenderness (Epigastric and left upper quadrant without rebound or guarding); No mass Extremities: non-tender, normal inspection Back: normal inspection, no CVA tenderness, no vertebral tenderness Neurologic/Psychiatric: alert, oriented x 3 Skin: normal color, warm/dry Progress/Results/Core Measures Results/Orders Lab Results Laboratory Tests Test 11/08/22 11:53 Range/Units White Blood Count 5.7 4.3-11.0 10^3/uL Red Blood Count 4.30 3.80-5.11 10^6/uL Hemoglobin 13.7 11.5-16.0 g/dL Hematocrit 41 35-52 % Mean Corpuscular Volume 95 80-99 fL Mean Corpuscular Hemoglobin 32 25-34 pg Mean Corpuscular Hemoglobin Concent 34 32-36 g/dL Red Cell Distribution Width 11.8 10.0-14.5 % Platelet Count 155 130-400 10^3/uL Mean Platelet Volume 12.1 9.0-12.2 fL Immature Granulocyte % (Auto) 0 % Neutrophils (%) (Auto) 62 42-75 % Lymphocytes (%) (Auto) 29 12-44 % Monocytes (%) (Auto) 6 0-12 % Eosinophils (%) (Auto) 2 0-10 % Basophils (%) (Auto) 1 0-10 % Neutrophils # (Auto) 3.5 1.8-7.8 10^3/uL Lymphocytes # (Auto) 1.6 1.0-4.0 10^3/uL Monocytes # (Auto) 0.4 0.0-1.0 10^3/uL Eosinophils # (Auto) 0.1 0.0-0.3 10^3/uL Basophils # (Auto) 0.1 0.0-0.1 10^3/uL Immature Granulocyte # (Auto) 0.0 0.0-0.1 10^3/uL Sodium Level 140 135-145 MMOL/L Potassium Level 3.9 3.6-5.0 MMOL/L Chloride Level 110 H 98-107 MMOL/L Carbon Dioxide Level 22 21-32 MMOL/L Anion Gap 8 5-14 MMOL/L Blood Urea Nitrogen 14 7-18 MG/DL Creatinine 1.22 0.60-1.30 MG/DL Estimat Glomerular Filtration Rate 50 BUN/Creatinine Ratio 11 Glucose Level 98 70-105 MG/DL Calcium Level 9.1 8.5-10.1 MG/DL Corrected Calcium 8.9 8.5-10.1 MG/DL Total Bilirubin 0.8 0.1-1.0 MG/DL Aspartate Amino Transf (AST/SGOT) 11 5-34 U/L Alanine Aminotransferase (ALT/SGPT) 8 0-55 U/L Alkaline Phosphatase 103 40-136 U/L C-Reactive Protein High Sensitivity 0.38 0.00-0.50 MG/DL Total Protein 6.7 6.4-8.2 GM/DL Albumin 4.3 3.2-4.5 GM/DL Lipase 35 8-78 U/L My Orders Orders - EDWIN JAQUEZ MD Cbc With Automated Diff (11/08/22 11:53) Comprehensive Metabolic Panel (11/08/22 11:53) Hs C Reactive Protein (11/08/22 11:53) Lidocaine 2% Viscous 15 Ml (Xylocaine Vi (11/08/22 12:00) Ns Iv 1000 Ml (Sodium Chloride 0.9%) (11/08/22 11:53) Antacid Suspension (Antacid Suspension (11/08/22 12:00) Ed Iv/Invasive Line Start (11/08/22 11:53) Fentanyl Injection (Fentanyl Injection (11/08/22 11:53) Ondansetron Injection (Zofran Injectio (11/08/22 12:00) Lipase (11/08/22 12:00) Ct Abdomen/Pelvis W (11/08/22 12:54) Fentanyl Injection (Fentanyl Injection (11/08/22 12:57) Iohexol Injection (Omnipaque 350 Mg/Ml 1 (11/08/22 13:15) Received Contrast (Hold Metformin- Contr (11/08/22 13:15) Ns (Ivpb) 100 Ml (Sodium Chloride 0.9% 1 (11/08/22 13:15) Ondansetron Injection (Zofran Injectio (11/08/22 13:45) Medications Given in ED Current Medications Medications Dose Ordered Sig/Misa Route Start Time Stop Time Status Last Admin Dose Admin Al Hydrox/Mg Hydrox/Simethicone 30 ml ONCE ONCE PO 11/08/22 12:00 11/08/22 12:01 DC 11/08/22 12:08 30 ML Iohexol 100 ml ONCE ONCE IV 11/08/22 13:15 11/08/22 13:20 DC 11/08/22 13:26 69 ML Lidocaine HCl 15 ml ONCE ONCE PO 11/08/22 12:00 11/08/22 12:01 DC 11/08/22 12:08 15 ML Ondansetron HCl 4 mg ONCE ONCE IVP 11/08/22 12:00 11/08/22 12:02 DC 11/08/22 12:06 4 MG Ondansetron HCl 4 mg ONCE ONCE IVP 11/08/22 13:45 11/08/22 13:46 DC 11/08/22 14:03 4 MG Sodium Chloride 100 ml ONCE ONCE IV 11/08/22 13:15 11/08/22 13:20 DC 11/08/22 13:26 80 ML Vital Signs/I&O 11/08/22 11:36 Temp 36.6 Pulse 56 Resp 16 B/P (MAP) 91/62 (72) Pulse Ox 97 O2 Delivery Room Air Blood Pressure Mean: 72 Progress Progress Note : Progress Note Seen in the morning. IV, labs including CBC, CMP lipase ordered. CRP also ordered. Give normal saline 1 L bolus, Zofran 4 mg IV and GI cocktail as well as fentanyl 50 mcg IV. Monitor patient. Differential diagnosis includes reflux, ulcerative disease, electrolyte abnormality, dehydration, pancreatitis, liver dysfunction 1255: CT abdomen and pelvis ordered to rule out mass, lesion, for perforation or other intra-abdominal pathology. CBC reviewed and is grossly normal. CMP reviewed and is grossly normal with normal lipase. We will repeat fentanyl 50 mcg IV for persistent pain. This was all discussed with the patient who agrees. Monitor patient. 350: CT abdomen pelvis are complete. No obvious acute findings to suggest free air or mass on my interpretation. Radiology report reviewed and agrees. Patient did require repeat dose of Zofran 4 mg IV. Monitor pressure. 1430: Doing better. Patient is appreciative of the information and findings. She does have appointment with her GI specialist this week for scope and she will keep that. We will initiate outpatient sucralfate and I will write for a few pain pills for which she was appreciative. Discharged home with return precautions. Patient verbalized understanding of instructions and agreement with plan. Diagnostic Imaging Diagonstic Imaging: CT Plain Films/CT/US/NM/MRI: abdomen, pelvis Comments [facility]. [place], [place] NAME: KAILYN GRULLON [facility] REC#: [id number] PT STATUS: REG ER : 1960 PHYSICIAN: EDWIN JAQUEZ MD ADMIT DATE: 11/08/22/ER Draft Date of Exam:11/08/22 CT ABDOMEN/PELVIS W PROCEDURE: CT abdomen and pelvis with contrast. TECHNIQUE: Multiple contiguous axial images were obtained through the abdomen and pelvis after administration of intravenous contrast. Auto Exposure Controls were utilized during the CT exam to meet ALARA standards for radiation dose reduction. All CT scans use one or more of the following dose optimizing techniques: automated exposure control, MA and/or KvP adjustment based on patient size and exam type or iterative reconstruction. INDICATION: Upper abdominal pain, progressive in severity, history of diverticulitis. Compared with exam 03/23/2021. There is no diverticulitis. There is no small or large bowel obstruction. No free air. No ascites, abscess, hematoma or acute fluid collection. Gallbladder absent. The liver, spleen, adrenals and pancreas unremarkable. No pathological ductal dilatation. The kidneys are unobstructed. There is aortoiliac atherosclerotic vascular calcifications as well as vascular stents. No visible mesenteric thrombus and no findings of acute end organ ischemia. No hemorrhage. No abnormal fecal loading. No perienteric or pericolonic edema. No focal inflammatory process. IMPRESSION: Chronic atherosclerosis without hemorrhage or acute ischemia. Normal fecal load. No obstruction, perforation, ascites or fluid collections. Dictated on workstation # [id number] Dict: 11/08/22 1332 Trans: 11/08/22 1347 CV [id number] Interpreted by: AGUS AKINS Electronically signed by: Reviewed: Reviewed by Me Departure Impression Primary Impression: Epigastric abdominal pain Disposition: HOME, SELF-CARE Condition: Stable Departure-Patient Inst. Decision time for Depature: 14:32 Referrals: JACLYN KONG DO (PCP/Family) Primary Care Physician Patient Instructions: Severe Abdominal Pain, Adult (DC), Acid Reflux, Adult and Adolescent ED Add. Discharge Instructions: All discharge instructions reviewed with patient and/or family. Voiced understanding. Keep appointment with your GI doctor as scheduled. Follow-up with your doctor for recheck and further evaluation as needed. Take medications as directed. Continue home medications as previously prescribed. Return for worse pain, fever, vomiting, weakness, breathing problems or other concerns as needed. Clear or light diet over the next few days and then advance as tolerated or per GI doctor instructions. Scripts Sucralfate (Sucralfate) 1 Gram Tablet 1 GM PO ACHS, #28 TAB 1 Refill Chew tablet to a slurry and then swallow Prov: EDWIN JAQUEZ MD 11/08/22 Hydrocodone/Acetaminophen (Hydrocodone-Acetamin 5-325 mg) 5 Mg-325 Mg Tablet 1 TAB PO Q6H PRN for PAIN-MODERATE (5-7) for 7 Days, #8 TAB 0 Refills Prov: EDWIN JAQUEZ MD 11/08/22 Copy Copies To 1: JACLYN KONG TIMOTHY D MD Nov 08, 2022 12:00
[2022-11-08 12:02] LABS: BASOPHILS # (AUTO) 0.1 10^3/uL (0.0-0.1); BASOPHILS % (AUTO) 1 % (0-10); EOSINOPHILS # (AUTO) 0.1 10^3/uL (0.0-0.3); EOSINOPHILS % (AUTO) 2 % (0-10); HEMATOCRIT 41 % (35-52); HEMOGLOBIN 13.7 g/dL (11.5-16.0); LYMPHOCYTES # (AUTO) 1.6 10^3/uL (1.0-4.0); LYMPHOCYTES % (AUTO) 29 % (12-44); MEAN CORPUSCULAR HEMOGLOBIN 32 pg (25-34); MEAN CORPUSCULAR HGB CONC 34 g/dL (32-36); MEAN CORPUSCULAR VOLUME 95 fL (80-99); MEAN PLATELET VOLUME 12.1 fL (9.0-12.2); MONOCYTES # (AUTO) 0.4 10^3/uL (0.0-1.0); MONOCYTES % (AUTO) 6 % (0-12); NEUTROPHILS # (AUTO) 3.5 10^3/uL (1.8-7.8); NEUTROPHILS % (AUTO) 62 % (42-75); PLATELET COUNT 155 10^3/uL (130-400); WHITE BLOOD COUNT 5.7 10^3/uL (4.3-11.0)
[2022-11-08 12:13] LABS: ALBUMIN 4.3 GM/DL (3.2-4.5); POTASSIUM 3.9 MMOL/L (3.6-5.0)
[2022-11-08 12:14] LABS: CALCIUM 9.1 MG/DL (8.5-10.1)
[2022-11-08 12:15] LABS: TOTAL PROTEIN 6.7 GM/DL (6.4-8.2)
[2022-11-08 12:17] LABS: BILIRUBIN,TOTAL 0.8 MG/DL (0.1-1.0)
[2022-11-08 12:19] LABS: CREATININE SERUM 1.22 MG/DL (0.60-1.30)
[2022-11-08] MEDS ORDERED: NS 100 ML (IVPB) BAG IV ONE (13:15)
[2022-11-08] MEDS ORDERED: IOHEXOL 350 MG/ML 100 ML (OMNIPAQUE 350) VIAL IV ONE (13:15)
[2022-11-08] MEDS ORDERED: HOLD METFORMIN - RECEIVED CONTRAST 20 ML VIAL IV SCH (13:15)
--- NOTE | 2022-11-08 13:48 | Diagnostic Imaging Report ---
PROCEDURE: CT abdomen and pelvis with contrast. TECHNIQUE: Multiple contiguous axial images were obtained through the abdomen and pelvis after administration of intravenous contrast. Auto Exposure Controls were utilized during the CT exam to meet ALARA standards for radiation dose reduction. All CT scans use one or more of the following dose optimizing techniques: automated exposure control, MA and/or KvP adjustment based on patient size and exam type or iterative reconstruction. INDICATION: Upper abdominal pain, progressive in severity, history of diverticulitis. Compared with exam 03/23/2021. There is no diverticulitis. There is no small or large bowel obstruction. No free air. No ascites, abscess, hematoma or acute fluid collection. Gallbladder absent. The liver, spleen, adrenals and pancreas unremarkable. No pathological ductal dilatation. The kidneys are unobstructed. There is aortoiliac atherosclerotic vascular calcifications as well as vascular stents. No visible mesenteric thrombus and no findings of acute end organ ischemia. No hemorrhage. No abnormal fecal loading. No perienteric or pericolonic edema. No focal inflammatory process. IMPRESSION: Chronic atherosclerosis without hemorrhage or acute ischemia. Normal fecal load. No obstruction, perforation, ascites or fluid collections. Dictated by: Dictated on workstation # [id number]
[2022-11-08] MEDS ORDERED: ACHD5005 PO (14:34)
[2022-11-08] MEDS ORDERED: SUCR1TAB PO (14:34)
[2022-11-08 14:57] VITALS: BP 115/78
== END 2022-11-08 14:57 | disposition home or self-care (01) ==
LOC: EDUNIT# 11:14 → ER 11:16
DX: R10.13 Epigastric pain (principal); R10.12 Left upper quadrant pain; F17.200 Nicotine dependence, unspecified, uncomplicated; Z87.19 Personal history of other diseases of the digestive system; Z90.49 Acquired absence of other specified parts of digestive tract; Z88.5 Allergy status to narcotic agent
CPT/HCPCS: 36415; 74177; 80053; 83690; 85025; 86141